=== PATIENT | female | born 1945 | race Hispanic/Latino ===

== ENCOUNTER 2018-10-08 06:22 | Day surgery (SDC) | payer OTHER ==
--- NOTE | 2018-10-07 09:42 | RAD REPORT ---
EXAM DESCRIPTION: Soni Dumont (2 Views)10/07/2018 8:31 am CLINICAL HISTORY: preop for hernia repair COMPARISON: 2010 FINDINGS: The lungs appear clear of acute infiltrate. The heart is normal size. Small to moderate h iatal hernia IMPRESSION: No acute abnormalities displayed
[2018-10-07 09:43] LABS: Absolute Lymphocytes (CBC) 1.7 K/uL (0.7-4.9); Absolute Monocytes 0.5 K/uL (0.1-1.3); Absolute Neutrophil 3.7 K/uL (1.8-8.0); Basophils % 0.5 % (0-1.3); Eosinophils % 4.8 % (0-4.4); Hematocrit 42.6 % (36.0-45.0); Lymphocytes % 27.2 % (15.3-44.8); MPV 10.9 fL (7.6-11.3); Monocytes % 8.6 % (3.3-12.3); RBC Red Blood Cell Count 4.72 M/uL (3.86-4.86)
[2018-10-07 09:57] LABS: Potassium 3.8 mmol/L (3.5-5.1)
--- NOTE | 2018-10-07 10:21 | EKG ---
Test Date: 2018-10-07 Test Time: 08:26:55 Client Relation Specialist: SIMON MEASUREMENT RESULTS: Intervals: Rate: 57 AZ: 190 QRSD: 82 QT: 456 QTc: 443 Mica: P: 17 AZ: 190 QRS: 21 T: 27 INTERPRETIVE STATEMENTS: Sinus bradycardia Nonspecific T wave abnormality Abnormal ECG Compared to ECG 02/12/2016 16:37:47 T-wave abnormality now present Sinus rhythm no longer present Myocardial infarct finding no longer present Electronically Signed On 10-07-18 10:21:14 HOME APPLIANCE TECH by Jesus Cristobal
[2018-10-07 10:37] LABS: Blood Morphology Comment NOT SEEN (NOT SEEN); Platelet Estimate ADEQ; Platelets, Giant FEW; Urine White Blood Cell Casts OK
[2018-10-08] MEDS ORDERED: CEFAZOLIN 1GM (PREMIX IV) 1 GM/50 ML BAG ONE (06:46)
[2018-10-08] MEDS ORDERED: Ringers Lactate 1,000 ML IV ONE (06:46)
[2018-10-08] MEDS ORDERED: LIDOCAINE 1% MPF 5 ML VIAL ONE (06:52)
[2018-10-08] MEDS ORDERED: FENTANYL CITR 100 MCG/2 ML ONE (07:33)
[2018-10-08] MEDS ORDERED: PROPOFOL 200 MG/20 ML VIAL IV ONE (07:33)
[2018-10-08] MEDS ORDERED: LIDOCAINE 2% MPF 5 ML VIAL ONE (07:34)
[2018-10-08] MEDS ORDERED: BUPIVACAINE 0.5% PF 10 ML VIAL ONE (07:34)
[2018-10-08] MEDS ORDERED: ONDANSETRON 4 MG/2 ML VIAL ONE (07:34)
[2018-10-08] MEDS ORDERED: ROCURONIUM 50 MG/5 ML VIAL IV ONE (07:34)
[2018-10-08] MEDS ORDERED: MIDAZOLAM HCL 2 MG/2 ML INJ ONE (07:34)
[2018-10-08] MEDS ORDERED: EPHEDRINE SULF 50 MG/10 ML SYR ONE (08:01)
[2018-10-08] MEDS ORDERED: NEOSTIGMINE 1 MG/ML -5 ML SYRINGE ONE (08:37)
[2018-10-08] MEDS ORDERED: GLYCOPYRROLATE 0.2 MG/ML SYR ONE (08:37)
[2018-10-08] MEDS: MORPHINE 4 MG/ML SYR ONE ×2 (09:00→09:05)
[2018-10-08] MEDS ORDERED: TRAMADOL 37.5mg/APAP 325mg PER TAB ONE (10:01)
--- NOTE | 2018-10-08 12:00 | OP ---
Date of Procedure: 10/08/2018 Surgeon: Fabián Norman MD Preopertive Diagnosis: Right inguinal hernia. Postopertive Diagnosis: Right inguinal hernia. Procedure: Repair of right inguinal hernia. Estimated Blood Loss: Minimal. Specimen: Relevant. Findings: Direct right inguinal hernia lateral to the internal ring. Anesthesia: General. Complications: None. Disposition: The patient tolerated the procedure in stable condition and taken to Recovery in good g eneral condition. Procedure In Detail: The patient was brought to the OR, placed in supine position. General anesthes ia was begun. The patient was prepped and draped in the usual sterile fashion. Marcaine 0.5% was in filtrated in a field block fashion and then a 15-blade was used to make a 4 cm oblique incision in th e right groin between the pubic tubercle and the anterior iliac superior spine. Subcutaneous tissue divided fascia. Martha fascia identified and divided. Aponeurosis was identified and mobilized infe riorly to expose the shelving edge, then opened through the external ring. Ilioinguinal nerve identi fied and retracted out of the field of dissection. The round ligament mobilized and excised and sent to Pathology. 2-0 chromic used to tie both ends. There was no hernia in the internal ring. Latera l to the internal ring, there was approximately a 2.5 cm defect with preperitoneal fat protruding thr ough it which was reduced back into the peritoneal cavity, and then the defect was closed by approxim ating the shelving edge to the conjoint tendon, then subsequently a Marlex mesh plug was placed in th e internal ring, secured with VersaTack stapler and then Onlay mesh was used to cover the area where the hernia was as well as the inguinal floor, and secured medially to the pubic tubercle, superiorly to the conjoint tendon, laterally beyond the hernia defect, inferiorly to the shelving edge, then kev oinguinal nerve placed back in anatomical location and in 2-0 Prolene was used to close the aponeuros is and 3-0 chromic used to close the Martha fascia. Wentworth used to close the skin. Sterile dressin g was applied. The patient was awakened and taken to Recovery in good general condition. /MODL Voice ID: [id number] Report ID: [id number]
--- NOTE | 2018-10-08 12:00 | DS ---
Date of Discharge: 10/08/2018 Discharge Note: The patient will go to day surgery and home when stable. Disposition: Home. Condition: Stable. Discharge Instructions: Resume home medications and diet. Activity as tolerated. No heavy lifting. Remove outer dressing in 2 days. Shower. Keep wound clean and dry. Follow up in my office in a nahomi montezk. Call for appointment. Ultracet 1 tablet p.o. q.4 p.r.n. pain. Ice pack as needed. RACHAEL/JENNIFER Voice ID: [id number] Report ID: [id number]
== END 2018-10-08 10:46 | disposition home or self-care (01) ==
LOC: OR 06:22
PROVIDERS: ATTEND Surgery
PROC: 0YU50JZ Supplement Right Inguinal Region with Synthetic Substitute, Open Approach (ICD-10-PCS; principal; 2018-10-08 07:30)
DX: K40.90 Unilateral inguinal hernia, without obstruction or gangrene, not specified as recurrent (principal); I10 Essential (primary) hypertension; G47.33 Obstructive sleep apnea (adult) (pediatric); K21.9 Gastro-esophageal reflux disease without esophagitis; Z88.6 Allergy status to analgesic agent
CPT/HCPCS: 36415; 49505; 71046; 80048; 85025; 88302; 93005; J0690; J2250; J2405; J2704; J2710; J3010

== ENCOUNTER 2024-01-05 13:49 | Observation (INO) | payer MEDICAID ==
--- OUTSIDE RECORDS SUMMARY | 2024-01-05 13:56 | XMS REPORT | Continuity of Care Document ---
Author Name Unknown Address [address] [facility] [address] [place] [address] [facility] Address [address] [facility]. [address] [place] [address] Care Team Providers Care Box Fabricator Name Role Phone ELIZABET EMELY TO Primary Care Physician Unavaila Emely Pinto Attending Clinician Unavailable Javier Van Attending Clinician Unavailable Bella Padilla Attending Clinician Unavailable SG GOVEA Attending Clinician Unavailable SUZY MENDOZA Attending Clinician Unavailable MACK HARTLEY Attending Clinician Unavailable NISHANT GUTIERREZ Attending Clinician Unavailable MIGUELINA SAMANO Attending Clinician Unavailab vernell GOMEZ_Zohra Attending Clinician Unavail able FALLON GARRIDO Attending Clinician Unava JUAN Steward Attending Clinician Unavailable BRIAN GERBER Attending Clinician Unavailabl e MD SARA Attending Clinician Unavailab DENNIS Javier Attending Clinician Unavailabl e VF1 Attending Clinician Unavailable 1, [facility] Attending Clinic terrie Unavailable KRISTOPHER MONTGOMERY Attending Clinician Unavailable AMIRA PONCE Attending Clinician Unavailable JAIDEN ALEXANDER Attending Clinician Unava ilable Doctor Unassigned, [place] Attending Clinician U иван Interiano MD, Kathleen Attending Clinician + [phone] LAB90 Attending Clinician Unavailable KATHLEEN INTERIANO Attending Clinician EMANUEL Maxwell Attending Clinician Unava ilable Catrett V, ACNPKumarSarika Attending Clinician SARIKA OHARA Attending Clinician Unavailable Denise Barnett MD Attending Clinician [phone] Referred, Self Attending Clinician Unavailable JEFFREY FAUSTIN Attending Clinician Venkat Gallardo MD, Jeffrey Lazaro Attending Clinician [phone] [facility], [facility] Main Attending Clinician UnavailDebbi Chandra Attending Clinician Unatwin ilable Attending Clinician [phone] Debbi Manzo Attending Clinician [phone] DENISE BARNETT Attending Clinician Unavailable Raju_P Attending Clinician Unavailable ISABELA FRANCIS Attending Clinician Unavail able AUBRIE LEIGH Attending Clinician UnavailLYNDON Brewer Attending Clinician Unavailab vernell _SWHAWPR_Varun Admitting Clinician Unavail able Referred, Self Admitting Clinician Unavailable JEFFREY FAUSTIN Admitting Clinician Unavailab Sami MORILLO, Jeffrey Lazaro Admitting Clinician [phone] Debbi Manzo Admitting Clinician Unava ilable RajArchana Admitting Clinician Unavailable LYNDON MILLS Admitting Clinician Unavailab matt Payers Payer Name Policy Type Policy Number Effective Date Expirati on Date Source [facility] HMO-POS 16 [id number] 2023 00:00:00 ARLYN MCELROY PLUS (MEDICARE REPLACEMENT HMO) [id number] [employer] (MEDICARE REPLACEMENT O) [id number] 2021 00:00:00 2022 00:00:00 Problems Condition Name Condition Details Condition Category Status Onset Date Resolution Date Last Treatment Date Treating Clinician Comments Source Primary insomnia Primary insomnia Disease Active 02-27 00:00: 00 Arlyn Mcgilla giselle Pinched thoracic nerve root Pinched thoracic nerve root Disease Active 02-27 00:00: 00 Arlyn Mcgilla giselle Redundant colon Redundant colon Disease Active 02-27 00:00: 00 Arlyn Sylvester Externa l Hyperlipid emia Hyperlipid emia Disease Active 02-24 00:00: 00 Arlyn Mcgilla giselle Primary hypertensi on - Controlled Primary hypertensi on - Controlled Disease Active 02-24 00:00: 00 Arlyn Mcgilla giselle Essential hypertensi on Essential hypertensi on Disease Recurre nce 03-01 00:00: 00 [facility] Gastroesop hageal reflux disease, esophagiti s presence not specified Gastroesop hageal reflux disease, esophagiti s presence not specified Disease Active 11-07 00:00: 00 [facility] Uncontroll ed hypertensi on Uncontroll ed hypertensi on Disease Active 11-07 00:00: 00 [facility] Bilateral foot pain Bilateral foot pain Disease Active 11-07 00:00: 00 [facility] Hyperlipid emia, unspecifie d hyperlipid emia type Hyperlipid emia, unspecifie d hyperlipid emia type Disease Active 11-07 00:00: 00 [facility] History of peptic ulcer History of peptic ulcer Disease Active 11-07 00:00: 00 [facility] Hiatal hernia Hiatal hernia Disease Active 11-07 00:00: 00 [facility] Allergies, Adverse Reactions, Alerts Allergy Name Allergy Type Status Severity Reaction(s) Onset Date Inactive Date Treating Clinician Comments Source Codeine Propensi ty to adverse reaction s Active Nausea and Vomiting 06-19 00:00: 00 Arlyn desai Fd&C Blue #2 Al Dye-Nap roxen Propensi ty to adverse reaction s Active Itching 02-24 00:00: 00 Arlyn desai Naproxen Sodium Propensi ty to adverse reaction s Active Other 01-07 00:00: 00 Elevated BP and causes SOB Arlyn Seybold - Externa l Codeine Propensi ty to adverse reaction s Active 01-07 00:00: 00 Arlyn Seybold - Externa l Tramadol Propensi ty to adverse reaction s Active 04-26 00:00: 00 Other reaction( s): BLISTERS/ RASH Arlyn Setamraold - Externa l codeine DA Active U RASH AND NAUSEA 04-26 00:00: 00 [facility] naproxen DA Active U PANIC 04-26 00:00: 00 [facility] tramadol DA Active U BLISTERS/ISABEL H 04-26 00:00: 00 [facility] Morphine Drug Intolera nce Active Other 03-01 00:00: 00 Patient is not allergic but just does not want morphine Arlyn Pulliam - Externa l MORPHINE DRUG INGREDI Active Low Other-Cmnt 03-01 00:00: 00 [facility] NAPROXEN SODIUM DRUG INGREDI Active SOB 12-31 00:00: 00 [facility] Naproxen Sodium Propensi ty to adverse reaction s Active Shortness of Breath 12-31 00:00: 00 [facility] CODEINE DRUG INGREDI Active N/V 10-29 00:00: 00 [facility] Codeine Propensi ty to adverse reaction s Active Nausea and/or Vomiting 10-29 00:00: 00 [facility] Aleve Allergy to substanc e Active Itching [facility] Codeine Allergy to substanc e Active Nausea, Vomiting [facility] Naproxen Allergy to substanc e Active Itching [facility] Social History Social Habit Start Date Stop Date Quantity Comments Source History SDOH Alcohol Frequency [facility] History SDOH Alcohol Std Drinks [facility] History SDOH Alcohol Binge [facility] Alcoholic beverage intake 2024-01-01 00:00:00 2024-01-01 00:00:00 Lifetime non-drinker (finding) Arlyn Pulliam - External Alcohol intake 2023-10-27 00:00:00 2023-10-27 00:00:00 Lifetime non-drinker (finding) Arlyn Pulliam - External Exposure to SARS-CoV-2 (event) 2023-01-17 00:00:00 2023-01-27 12:57:00 Not sure [facility] Tobacco use and exposure 2023-01-07 00:00:00 2023-01-07 00:00:00 Smokeless tobacco non-user Arlyn Pulliam - External History of Social function 2022-10-02 00:00:00 2022-10-02 00:00:00 [facility] Alcohol Comment 2016-10-29 00:00:00 2016-10-29 00:00:00 Occasionally [facility] Sex assigned at 1945 00:00:00 1945 00:00:00 Arlyn Pulliam - External Smoking Status Start Date Stop Date Source Never smoked tobacco Arlyn Pulliam - External Medications Ordered Medication Name Filled Medication Name Start Date Stop Date Current Medication? Ordering Clinician Indication Dosage Frequency Signature (SIG) Comments Components Source Cholecalcif ochoa (D3 High Potency) 25 MCG (1000 UT) oral Capsule 12-31 10:01: 19 Yes 1000U Take 1,000 units by mouth daily. Arlyn desai Magnesium Oxide (MAGNESIUM EXTRA STRENGTH OR) 12-31 10:01: 19 Yes 420mg Take 420 mg by mouth. Arlyn desai OMEGA-3 KRILL OIL OR 12-31 09:57: 47 Yes 600mg Take 600 mg by mouth. Arlyn desai Cholestyram ine 4 GM/DOSE oral Powder 12-31 09:56: 59 12-31 00:00 :00 No 4g Take 1 packet (4 g total) by mouth in the morning and 1 packet (4 g total) in the evening. Take with meals. Arlyn desai Azelastine HCl 0.1 % nasal Solution 12-31 09:56: 25 12-31 00:00 :00 No 1{spray } Use 1 spray in each nostril 2 times daily. Arlyn desai Candesartan Cilexetil-H CTZ 32-12.5 MG oral Tablet 12-31 00:00: 00 Yes [id number] 1{tbl} Take 1 tablet by mouth daily. Arlyn desai Carvedilol 6.25 MG oral Tablet 12-31 00:00: 00 Yes [id number] 6.25mg Take 1 tablet (6.25 mg total) by mouth in the morning and 1 tablet (6.25 mg total) in the evening. Take with meals. Arlyn desai Trazodone HCl 50 MG oral Tablet 12-31 00:00: 00 Yes [id number] 50mg Take 1 tablet (50 mg total) by mouth nightly. Arlyn desai Loratadine (CLARITIN) 10 MG oral tablet 12-29 00:00: 00 Yes 10mg Take 1 tablet (10 mg total) by mouth daily. Arlyn desai Candesartan Cilexetil-H CTZ 32-12.5 MG oral Tablet 12-29 00:00: 00 12-31 00:00 :00 No [id number] 1{tbl} Take 1 tablet by mouth daily. Arlyn desai Trazodone HCl 50 MG oral Tablet 12-29 00:00: 00 12-31 00:00 :00 No [id number] 50mg Take 1 tablet (50 mg total) by mouth nightly. Arlyn desai ESTRADIOL VAGINAL (ESTRACE VAGINAL) 0.1 MG/GM vaginal Cream 11-19 13:14: 12 11-19 00:00 :00 No .5g 0.5 g Arlyn desai Tamsulosin HCl 0.4 MG oral Capsule 11-19 13:14: 06 11-19 00:00 :00 No .4mg 1 capsule (0.4 mg total) daily. Arlyn desai Cholecalcif ochoa 1.25 MG (83835 UT) oral Capsule 11-19 13:13: 53 11-19 00:00 :00 No [id number] Take 1 capsule (50,000 units total) by mouth once a month. Arlyn desai Cholestyram ine 4 GM/DOSE oral Powder 11-18 13:05: 18 Yes 4g Take 1 packet (4 g total) by mouth in the morning and 1 packet (4 g total) in the evening. Take with meals. Arlyn desai methylPREDN ISolone (Medrol) 4 MG oral Tablet Therapy Pack 11-18 00:00: 00 12-31 00:00 :00 No [id number] 1{janelle} Take 1 janelle by mouth See Admin Instructio ns Use as directed.. Arlyn desai Cholestyram ine 4 GM/DOSE oral Powder 10-27 08:30: 08 Yes 4g Take 1 packet (4 g total) by mouth in the morning and 1 packet (4 g total) in the evening. Take with meals. Arlyn desai Cholecalcif ochoa 1.25 MG (08915 UT) oral Capsule 10-27 08:30: 08 Yes [id number] Take 1 capsule (50,000 units total) by mouth once a month. Arlyn desai ESTRADIOL VAGINAL (ESTRACE VAGINAL) 0.1 MG/GM vaginal Cream 10-27 08:30: 08 Yes .5g 0.5 g Arlyn desai Carvedilol 6.25 MG oral Tablet 10-20 00:00: 00 12-31 00:00 :00 No [id number] 6.25mg Take 1 tablet (6.25 mg total) by mouth in the morning and 1 tablet (6.25 mg total) in the evening. Take with meals. Arlyn desai Azelastine HCl 137 MCG/SPRAY nasal Solution 1-03 00:00: 00 11-19 00:00 :00 No [id number] 1{spray } Use 1 spray in each nostril 2 times daily. Arlyn desai Trazodone HCl 50 MG oral Tablet 2022-09 00:00: 00 Yes [id number] 50mg Take 1 tablet (50 mg total) by mouth nightly. Arlyn desai Tamsulosin HCl 0.4 MG oral Capsule 2022-09 08:57: 30 Yes .4mg 1 capsule (0.4 mg total) daily. Arlyn desai FLUTICASONE PROPIONATE, NASAL, (Flonase Allergy Relief) 50 MCG/ACT nasal Suspension 2022-09 00:00: 00 Yes [id number] 50ug Use 1 spray (50 mcg total) in each nostril daily. Arlyn desai Oxybutynin Chloride 10 MG oral TABLET SR 24 HR 2022-09 00:00: 00 11-19 00:00 :00 No [id number] 10mg Take 1 tablet (10 mg total) by mouth daily. Arlyn desai Cholestyram ine 4 GM/DOSE oral Powder 2022-09 14:16: 06 Yes 4g Take 1 packet (4 g total) by mouth in the morning and 1 packet (4 g total) in the evening. Take with meals. Arlyn desai Cholecalcif ochoa 1.25 MG (98742 UT) oral Capsule 2022-09 14:16: 06 Yes [id number] Take 1 capsule (50,000 units total) by mouth once a month. Arlyn desai ESTRADIOL VAGINAL (ESTRACE VAGINAL) 0.1 MG/GM vaginal Cream 2022-09 14:16: 06 Yes .5g 0.5 g Arlyn desai Tamsulosin HCl 0.4 MG oral Capsule 2022-09 14:16: 06 Yes .4mg 1 capsule (0.4 mg total) daily. Arlyn desai Triamcinolo ne Acetonide 0.1 % apply externally Cream 2022-09 14:16: 06 Yes APPLY THIN LAYER TO AFFECTED AREAS ON TRUNK TWICE A DAY FOR 2 WEEKS/TERRIE H Arlyn desai Cholestyram ine 4 GM/DOSE oral Powder 2022-09 13:02: 05 Yes 4g Take 1 packet (4 g total) by mouth in the morning and 1 packet (4 g total) in the evening. Take with meals. Arlyn desai Cholecalcif ochoa 1.25 MG (67657 UT) oral Capsule 2022-09 13:02: 05 Yes [id number] Take 1 capsule (50,000 units total) by mouth once a month. Arlyn desai ESTRADIOL VAGINAL (ESTRACE VAGINAL) 0.1 MG/GM vaginal Cream 2022-09 13:02: 05 Yes .5g 0.5 g Arlyn desai Tamsulosin HCl 0.4 MG oral Capsule 2022-09 13:02: 05 Yes .4mg 1 capsule (0.4 mg total) daily. Arlyn desai Triamcinolo ne Acetonide 0.1 % apply externally Cream 2022-09 13:02: 05 Yes APPLY THIN LAYER TO AFFECTED AREAS ON TRUNK TWICE A DAY FOR 2 WEEKS/TERRIE H Arlyn desai Mirabegron ER (Myrbetriq) 25 MG oral TABLET SR 24 HR 2022-09 10:38: 26 07-01 00:00 :00 No 25mg Take 1 tablet (25 mg total) by mouth daily. Arlyn desai Cholestyram ine 4 GM/DOSE oral Powder 2022-09 10:04: 27 Yes 4g Take 1 packet (4 g total) by mouth in the morning and 1 packet (4 g total) in the evening. Take with meals. Arlyn desai Cholecalcif ochoa 1.25 MG (24764 UT) oral Capsule 2022-09 10:04: 27 Yes [id number] Take 1 capsule (50,000 units total) by mouth once a month. Arlyn desai ESTRADIOL VAGINAL (ESTRACE VAGINAL) 0.1 MG/GM vaginal Cream 2022-09 10:04: 27 Yes .5g 0.5 g Arlyn desai Tamsulosin HCl 0.4 MG oral Capsule 2022-09 10:04: 27 Yes .4mg 1 capsule (0.4 mg total) daily. Arlyn desai Triamcinolo ne Acetonide 0.1 % apply externally Cream 2022-09 10:04: 27 Yes APPLY THIN LAYER TO AFFECTED AREAS ON TRUNK TWICE A DAY FOR 2 WEEKS/TERRIE H Arlyn desai Acetaminoph en-Codeine 300-30 MG oral Tablet 2022-09:: 07-01 00:00 :00 No Arlyn desai Ibuprofen (MOTRIN) 800 MG oral Tablet 2022-09:: 07-01 00:00 :00 No TAKE 1 TABLET BY MOUTH 3 TIMES A DAY FOR INFLAMMATI ON AND PAIN Arlyn desai Nitrofurant oin Monohyd Macro 100 MG oral Capsule 2022-09 07:: 07-01 00:00 :00 No TAKE 1 CAPSULE BY MOUTH EVERY 12 HOURS FOR 7 DAYS WITH FOOD Arlyn desai prednisoLON E Acetate 1 % ophthalmic Suspension 2022-09:: 07-01 00:00 :00 No INSTILL 1 DROP TO BOTH EYES EVERY DAY FOR 2 WEEKS Arlyn desai raNITIdine HCl 300 MG oral Tablet 2022-09 07:: 07-01 00:00 :00 No 300mg Take 1 tablet (300 mg total) by mouth daily. Arlyn desai Tramadol HCl (ULTRAM) 50 MG oral Tablet 2022-09:: 07-01 00:00 :00 No TAKE 1 TABLET BY MOUTH TWICE DAILY FOR 15 DAYS Arlyn desai Valacyclovi r HCl 500 MG oral Tablet 2022-09:: 07-01 00:00 :00 No 500mg Take 1 tablet (500 mg total) by mouth daily. Arlyn desai Oxybutynin Chloride 10 MG oral TABLET SR 24 HR 2022-09 00:00: 00 Yes [id number] 10mg Take 1 tablet (10 mg total) by mouth daily. Arlyn desai Cholestyram ine 4 GM/DOSE oral Powder 06-19 09:19: 18 Yes 4g Take 1 packet (4 g total) by mouth in the morning and 1 packet (4 g total) in the evening. Take with meals. Arlyn desai Mirabegron ER (Myrbetriq) 25 MG oral TABLET SR 24 HR 06-19 09:19: 18 Yes 25mg Take 1 tablet (25 mg total) by mouth daily. Arlyn desai Cholecalcif ochoa 1.25 MG (54275 UT) oral Capsule 06-19 09:19: 18 Yes [id number] Take 1 capsule (50,000 units total) by mouth once a month. Arlyn desai ESTRADIOL VAGINAL (ESTRACE VAGINAL) 0.1 MG/GM vaginal Cream 06-19 09:19: 18 Yes .5g 0.5 g Arlyn desai Tamsulosin HCl 0.4 MG oral Capsule 06-19 09:19: 18 Yes .4mg 1 capsule (0.4 mg total) daily. Arlyn desai Cephalexin 250 MG oral Capsule 06-02 00:00: 00 12-31 00:00 :00 No Arlyn desai Propranolol HCl 10 MG oral Tablet 05-08 00:00: 00 Yes [id number] 10mg [id number] 3D TAKE 1 TABLET (10 MG TOTAL) BY MOUTH 3 TIMES DAILY NEEDED (ANXIETY) Arlyn desai Gabapentin 300 MG oral Capsule 04-16 00:00: 00 07-01 00:00 :00 No 1 CAPSULE IN THE AM AND 2 CAPSULE AT PM Arlyn desai Loratadine (CLARITIN) 10 MG oral tablet 04-07 00:00: 00 11-19 00:00 :00 No 10mg Take 1 tablet (10 mg total) by mouth daily. Arlyn desai Loratadine 10 MG oral Capsule 03-27 09:07: 56 03-27 00:00 :00 No 10mg Take 1 capsule (10 mg total) by mouth daily Arlyn desai Cholestyram ine 4 GM/DOSE oral Powder 03-27 08:51: 37 Yes 4g Take 1 packet (4 g total) by mouth in the morning and 1 packet (4 g total) in the evening. Take with meals. Arlyn desai Mirabegron ER (Myrbetriq) 25 MG oral TABLET SR 24 HR 03-27 08:51: 37 Yes 25mg Take 1 tablet (25 mg total) by mouth daily Arlyn desai Cholecalcif ochoa 1.25 MG (19154 UT) oral Capsule 03-27 08:51: 37 Yes [id number] Take 1 capsule (50,000 units total) by mouth once a month Arlyn desai ESTRADIOL VAGINAL (ESTRACE VAGINAL) 0.1 MG/GM vaginal Cream 03-27 08:51: 37 Yes .5g 0.5 g Arlyn desai Tamsulosin HCl 0.4 MG oral Capsule 03-27 08:51: 37 Yes .4mg 1 capsule (0.4 mg total) daily Arlyn desai Propranolol HCl 10 MG oral Tablet 03-27 00:00: 00 Yes [id number] 10mg Q.[id number] 3D Take 1 tablet (10 mg total) by mouth 3 times daily as needed (Anxiety) Arlyn desai Loratadine 10 MG oral Capsule 03-27 00:00: 00 11-19 00:00 :00 No [id number] 10mg Take 1 capsule (10 mg total) by mouth daily Arlyn desai Trazodone HCl 50 MG oral Tablet 03-21 00:00: 00 Yes [id number] TAKE 1 TABLET BY MOUTH EVERY DAY AT NIGHT Arlyn desai Gabapentin 600 MG oral Tablet 03-11 00:00: 00 Yes 600mg Take 1 tablet (600 mg total) by mouth 2 times daily. Arlyn desai Rosuvastati n Calcium 5 MG oral Tablet 02-24 15:46: 02-24 00:00 :00 No 5mg Take 1 tablet (5 mg total) by mouth daily Arlyn desai Amlodipine Besylate 2.5 MG oral Tablet 02-24 15:46: 02-24 00:00 :00 No 2.5mg Take 1 tablet (2.5 mg total) by mouth daily Arlyn desai Candesartan Cilexetil-H CTZ 32-12.5 MG oral Tablet 02-24 15:46: 02-24 00:00 :00 No 1{tbl} Take 1 tablet by mouth daily Arlyn desai Carvedilol 25 MG oral Tablet 02-24 15:46: 02-24 00:00 :00 No 25mg Take 1 tablet (25 mg total) by mouth daily Arlyn desai FLUTICASONE PROPIONATE, NASAL, (Flonase Allergy Relief) 50 MCG/ACT nasal Suspension 02-24 15:46: 02-24 00:00 :00 No 50ug Use 1 spray (50 mcg total) in each nostril daily Arlyn desai Gabapentin 300 MG oral Capsule 02-24 15:46: 02-24 00:00 :00 No 300mg Take 1 capsule (300 mg total) by mouth 3 times daily Arlyn desai Cholestyram ine 4 GM/DOSE oral Powder 02-24 15:20: 04 Yes 4g Take 1 packet (4 g total) by mouth in the morning and 1 packet (4 g total) in the evening. Take with meals. Arlyn desai Mirabegron ER (Myrbetriq) 25 MG oral TABLET SR 24 HR 02-24 15:20: 04 Yes 25mg Take 1 tablet (25 mg total) by mouth daily Arlyn desai Loratadine 10 MG oral Capsule 02-24 15:20: 04 Yes 10mg Take 1 capsule (10 mg total) by mouth daily Arlyn desai Cholecalcif ochoa 1.25 MG (92750 UT) oral Capsule 02-24 15:20: 04 Yes [id number] Take 1 capsule (50,000 units total) by mouth once a month Arlyn desai ESTRADIOL VAGINAL (ESTRACE VAGINAL) 0.1 MG/GM vaginal Cream 02-24 15:20: 04 Yes .5g 0.5 g Arlyn desai Tamsulosin HCl 0.4 MG oral Capsule 02-24 15:20: 04 Yes .4mg 1 capsule (0.4 mg total) daily Arlyn desai Tramadol HCl (ULTRAM) 50 MG oral Tablet 02-24 15:19: 44 02-24 00:00 :00 No tramadol 50 mg tablet TAKE 1 TABLET BY MOUTH TWICE DAILY FOR 15 DAYS Arlyn desai Triamcinolo ne Acetonide 0.1 % apply externally Cream 02-24 15:19: 34 02-24 00:00 :00 No triamcinol one acetonide 0.1 % topical cream APPLY TO AFFECTED AREA TWICE DAILY FOR 5-7 DAYS Arlyn desai Valacyclovi r HCl 500 MG oral Tablet 02-24 15:19: 25 02-24 00:00 :00 No valacyclov ir 500 mg tablet TAKE 1 TABLET BY MOUTH DAILY Arlyn desai raNITIdine HCl 300 MG oral Tablet 02-24 15:19: 03 02-24 00:00 :00 No ranitidine 300 mg tablet TAKE 1 TABLET BY MOUTH EVERY DAY Arlyn desai Nitrofurant oin Monohyd Macro 100 MG oral Capsule 02-24 15:18: 26 02-24 00:00 :00 No nitrofuran toin monohydrat e/macrocry stals 100 mg capsule Arlyn desai Acetaminoph en-Codeine 300-30 MG oral Tablet 02-24 15:17: 17 02-24 00:00 :00 No acetaminop hen 300 mg-codeine 30 mg tablet Arlyn desai Carvedilol 25 MG oral Tablet 02-24 00:00: 00 Yes [id number] 25mg Take 1 tablet (25 mg total) by mouth daily Arlyn desai Amlodipine Besylate 2.5 MG oral Tablet 02-24 00:00: 00 Yes [id number] 2.5mg Take 1 tablet (2.5 mg total) by mouth daily Arlyn desai Rosuvastati n Calcium 5 MG oral Tablet 02-24 00:00: 00 Yes [id number] 5mg Take 1 tablet (5 mg total) by mouth daily Arlyn desai FLUTICASONE PROPIONATE, NASAL, (Flonase Allergy Relief) 50 MCG/ACT nasal Suspension 02-24 00:00: 00 Yes [id number] 50ug Use 1 spray (50 mcg total) in each nostril daily Arlyn desai Candesartan Cilexetil-H CTZ 32-12.5 MG oral Tablet 02-24 00:00: 00 Yes [id number] 1{tbl} Take 1 tablet by mouth daily Arlyn desai Gabapentin 300 MG oral Capsule 02-24 00:00: 00 03-27 00:00 :00 No [id number] 300mg Take 1 capsule (300 mg total) by mouth 3 times daily Arlyn desai Trazodone HCl 50 MG oral Tablet 02-24 00:00: 00 03-21 00:00 :00 No [id number] 50mg Take 1 tablet (50 mg total) by mouth nightly Arlyn desai Cholecalcif ochoa 1.25 MG (38800 UT) oral Capsule 01-07 14:30: 31 Yes [id number] Take 1 capsule (50,000 units total) by mouth once a month Arlyn desai Cholestyram ine 4 GM/DOSE oral Powder 01-07 14:25: 17 Yes 4g Take 1 packet (4 g total) by mouth in the morning and 1 packet (4 g total) in the evening. Take with meals. Arlyn desai Rosuvastati n Calcium 5 MG oral Tablet 01-07 14:25: 17 Yes 5mg Take 1 tablet (5 mg total) by mouth daily Arlyn desai Amlodipine Besylate 2.5 MG oral Tablet 01-07 14:25: 17 Yes 2.5mg Take 1 tablet (2.5 mg total) by mouth daily Arlyn desai Candesartan Cilexetil-H CTZ 32-12.5 MG oral Tablet 01-07 14:25: 17 Yes 1{tbl} Take 1 tablet by mouth daily Arlyn desai Carvedilol 25 MG oral Tablet 01-07 14:25: 17 Yes 25mg Take 1 tablet (25 mg total) by mouth daily Arlyn desai FLUTICASONE PROPIONATE, NASAL, (Flonase Allergy Relief) 50 MCG/ACT nasal Suspension 01-07 14:25: 17 Yes 50ug Use 1 spray (50 mcg total) in each nostril daily Arlyn desai Gabapentin 300 MG oral Capsule 01-07 14:25: 17 Yes 300mg Take 1 capsule (300 mg total) by mouth 3 times daily Arlyn desai Mirabegron ER (Myrbetriq) 25 MG oral TABLET SR 24 HR 01-07 14:25: 17 Yes 25mg Take 1 tablet (25 mg total) by mouth daily Arlyn desai Loratadine 10 MG oral Capsule 01-07 14:25: 17 Yes 10mg Take 1 capsule (10 mg total) by mouth daily Arlyn desai candesartan -hydrochlor othiazide 32-12.5 mg per tablet 12-11 10:30: 13 Yes 1{tbl} Take 1 tablet by mouth in the morning. [facility] carvedilol 25 mg tablet 12-11 09:54: 30 Yes [id number] 25mg Take 1 tablet by mouth in the morning. [facility] rosuvastati n 5 mg tablet 12-11 09:54: 30 Yes [id number] 5mg Take 1 tablet by mouth in the morning. [facility] cholestyram ine powder packet 12-11 09:54: 30 Yes [id number] 2g Take 2 g by mouth as needed for Other. [facility] loratadine 10 mg tablet 12-11 09:54: 30 Yes 10mg Take 1 tablet by mouth as needed. [facility] [id number] sul-NaCl-SISI l-asb-C (PLENVU) 140-9-5.2 gram PPkS 12-11 09:54: 30 Yes Plenvu 140 gram-9 gram-5.2 gram powder packs TAKE DIRECTED BY PHYSICIAN OFFICE [facility] gabapentin 300 mg capsule 12-11 09:54: 30 Yes gabapentin 300 mg capsule [facility] gabapentin 400 mg capsule 12-11 09:39: 05 12-11 00:00 :00 No 400mg Take 400 mg by mouth in the morning and 400 mg in the evening. [facility] Ibuprofen (MOTRIN) 800 MG oral Tablet 12-10 00:00: 00 02-24 00:00 :00 No ibuprofen 800 mg tablet TAKE 1 TABLET BY MOUTH 3 TIMES A DAY FOR INFLAMMATI ON AND PAIN Arlyn desai Premarin 0.625 MG/GM vaginal Cream 12-01 00:00: 00 06-19 00:00 :[address] 0.5 g vaginally daily Arlyn desai KETOROLAC TROMETHAMIN E, OPHTH, 0.5 % ophthalmic Solution 11-22 00:00: 00 02-24 00:00 :00 No 1[drp] Place 1 drop into both eyes 2 times daily Arlyn desai prednisoLON E Acetate 1 % ophthalmic Suspension 11-22 00:00: 00 02-24 00:00 :00 No INSTILL 1 DROP TO BOTH EYES EVERY DAY FOR 2 WEEKS Arlyn desai cephALEXin 250 mg capsule 11-21 00:00: 00 Yes TAKE 1 CAPSULE BY MOUTH AFTER EACH VISIT [facility] lactated ringers IV infusion 1,000 mL 10-02 18:15: 00 10-02 20:30 :03 No 1000mL at 50 mL/hr, 1,000 mL, IV Infusion, CONTINUOUS , Starting on Fri10/02/22 at 1215, Until Fri10/02/22 at 1430, Routine, PACU [facility] ondansetron (ZOFRAN (PF)) injection 4 mg 10-02 18:06: 49 10-02 20:30 :03 No 4mg 4 mg, Slow IV Push, PRN, 1 dose, Starting on Fri10/02/22 at 1206, Until Fri10/02/22 at 1430, Routine, Nausea and Vomiting (N/V), PACU [facility] neomycin-po lymyxin-dex amethasone (MAXITROL) 3.5 mg/g-10,000 unit/g-0.1 % ophthalmic ointment 10-02 17:48: 00 10-02 18:03 :17 No PRN, Starting on Fri10/02/22 at 1148, Until Fri10/02/22 at 1203, Routine, Intra-op [facility] dexamethaso ne (DECADRON PHOSPHATE) injection 10-02 17:46: 00 10-02 18:03 :17 No PRN, Starting on Fri10/02/22 at 1146, Until Fri10/02/22 at 1203, Routine, Intra-op [facility] sodium chloride (NS) injection 10-02 17:46: 00 10-02 18:03 :17 No PRN, Starting on Fri10/02/22 at 1146, Until Fri10/02/22 at 1203, Routine, Intra-op [facility] ceFAZolin (ANCEF) injection 10-02 17:46: 00 10-02 18:03 :17 No PRN, Starting on Fri10/02/22 at 1146, Until Fri10/02/22 at 1203, KAITLYN, Intra-op [facility] carbachoL (MIOSTAT) 0.01 % intraocular injection 10-02 17:45: 00 10-02 18:03 :17 No PRN, Starting on Fri10/02/22 at 1145, Until Fri10/02/22 at 1203, Routine, Intra-op [facility] chondroitin sulf-sod hyaluronate (DUOVISC VISCO ELASTIC) intraocular injection 10-02 17:37: 00 10-02 18:03 :17 No PRN, Starting on Fri10/02/22 at 1137, Until Fri10/02/22 at 1203, Routine, Intra-op [facility] EPINEPHrine 1:1,000 (1 mg/mL) (ADRENALIN) injection 10-02 17:37: 00 10-02 18:03 :17 No PRN, Starting on Fri10/02/22 at 1137, Until Fri10/02/22 at 1203, Routine, Intra-op [facility] balanced salt irrig soln comb1 (BSS PLUS) ophthalmic solution 500 mL bag 10-02 17:37: 00 10-02 18:03 :17 No PRN, Starting on Fri10/02/22 at 1137, Until Fri10/02/22 at 1203, Routine, Intra-op [facility] water for irrigation irrigation solution 10-02 17:33: 00 10-02 18:03 :17 No PRN, Starting on Fri10/02/22 at 1133, Until Fri10/02/22 at 1203, Routine, Intra-op [facility] Hyaluronida se, Human Recomb. (HYLENEX) injection 10-02 17:29: 00 10-02 18:03 :17 No PRN, Starting on Fri10/02/22 at 1129, Until Fri10/02/22 at 1203, Routine, Intra-op [facility] eye block syringe 11 mL 10-02 17:29: 00 10-02 18:03 :17 No PRN, Starting on Fri10/02/22 at 1129, Until Fri10/02/22 at 1203, Intra-op [facility] tropicamide (MYDRIACYL) 1 % ophthalmic drops 1 Drop 10-02 15:45: 00 10-02 15:56 :00 No 1[drp] 1 Drop, Left Eye, ONCE, 1 dose, On Fri10/02/22 at 0945, Routine, DSU Pre-op [facility] phenylephri ne (MICKIE-SYNEPH RINE) 2.5 % ophthalmic drops 1 Drop 10-02 15:45: 00 10-02 15:56 :00 No 1[drp] 1 Drop, Left Eye, ONCE, 1 dose, On Fri10/02/22 at 0945, Routine, DSU Pre-op [facility] cyclopentol ate (CYCLOGYL) 1 % ophthalmic drops 1 Drop 10-02 15:45: 00 10-02 15:56 :00 No 1[drp] 1 Drop, Left Eye, ONCE, 1 dose, On Fri10/02/22 at 0945, Routine, DSU Pre-op [facility] lactated ringers IV infusion 1,000 mL 10-02 15:45: 00 10-02 15:56 :00 No 1000mL at 42 mL/hr, 1,000 mL, IV Infusion, ONCE, 1 dose, On Fri10/02/22 at 0945, Routine, DSU Pre-op [facility] gabapentin 400 mg capsule 10-02 12:30: 00 Yes 400mg Take 400 mg by mouth in the morning and 400 mg in the evening. [facility] neomycin-po lymyxin-dex amethasone (MAXITROL) 3.5 mg/g-10,000 unit/g-0.1 % ophthalmic ointment 2021-09 16:23: 00 09-18 17:07 :44 No PRN, Starting on Fri09/18/22 at 1023, Until Fri09/18/22 at 1107, Routine, Intra-op [facility] dexamethaso ne (DECADRON PHOSPHATE) injection 2021-09 16:23: 00 09-18 17:07 :44 No PRN, Starting on Fri09/18/22 at 1023, Until Fri09/18/22 at 1107, Routine, Intra-op [facility] ceFAZolin (ANCEF) injection 2021-09 16:22: 00 09-18 17:07 :44 No PRN, Starting on Fri09/18/22 at 1022, Until Fri09/18/22 at 1107, KAITLYN, Intra-op [facility] carbachoL (MIOSTAT) 0.01 % intraocular injection 2021-09 16:22: 00 09-18 17:07 :44 No PRN, Starting on Fri09/18/22 at 1022, Until Fri09/18/22 at 1107, Routine, Intra-op [facility] chondroitin sulf-sod hyaluronate (DUOVISC VISCO ELASTIC) intraocular injection 2021-09 16:13: 00 09-18 17:07 :44 No PRN, Starting on Fri09/18/22 at 1013, Until Fri09/18/22 at 1107, Routine, Intra-op [facility] water for irrigation irrigation solution 2021-09 16:12: 00 09-18 17:07 :44 No PRN, Starting on Fri09/18/22 at 1012, Until Fri09/18/22 at 1107, Routine, Intra-op [facility] sodium chloride (NS) injection 2021-09 16:12: 00 09-18 17:07 :44 No PRN, Starting on Fri09/18/22 at 1012, Until Fri09/18/22 at 1107, Routine, Intra-op [facility] Hyaluronida se, Human Recomb. (HYLENEX) injection 2021-09 16:11: 00 09-18 17:07 :44 No PRN, Starting on Fri09/18/22 at 1011, Until Fri09/18/22 at 1107, Routine, Intra-op [facility] eye block syringe 11 mL 2021-09 16:10: 00 09-18 17:07 :44 No PRN, Starting on Fri09/18/22 at 1010, Until Fri09/18/22 at 1107, Intra-op [facility] EPINEPHrine 1:1,000 (1 mg/mL) (ADRENALIN) injection 2021-09 16:10: 00 09-18 17:07 :44 No PRN, Starting on Fri09/18/22 at 1010, Until Fri09/18/22 at 1107, Routine, Intra-op [facility] balanced salt irrig soln comb1 (BSS PLUS) ophthalmic solution 500 mL bag 2021-09 16:09: 00 09-18 17:07 :44 No PRN, Starting on Fri09/18/22 at 1009, Until Fri09/18/22 at 1107, Routine, Intra-op [facility] lactated ringers IV infusion 1,000 mL 2021-09 15:15: 00 09-18 15:06 :00 No 1000mL at 42 mL/hr, 1,000 mL, IV Infusion, ONCE, 1 dose, On Fri09/18/22 at 0915, Routine, DSU Pre-op [facility] cyclopent 1%-tropic 1%-phenyl 2.5%-ketor 0.5% (MYDRIATIC #5) ophthalmic solution syringe 0.5 mL 2021-09 15:15: 00 09-18 15:06 :00 No .5mL 0.5 mL, Right Eye, ONCE, 1 dose, On Fri09/18/22 at 0915, Routine, DSU Pre-op [facility] rosuvastati n 5 mg tablet 01-18 13:05: 00 Yes [id number] 5mg Take 5 mg by mouth daily. [facility] candesartan -hydrochlor othiazide 32-12.5 mg per tablet 05-03 13:45: 06 Yes 1{tbl} Take 1 tablet by mouth daily. [facility] carvedilol 25 mg tablet 03-18 13:49: 39 Yes [id number] 25mg Take 25 mg by mouth 2 (two) times daily with meals. [facility] acetaminoph en 160 mg/5 mL elixir 03-02 00:00: 00 Yes [id number] 320mg Take 10 mL by mouth every 6 (six) hours as needed for Fever. [facility] Boostrix Tdap 2.5 Lf unit-8 mcg-5 Lf/0.5 mL intramuscul ar syringe TO BE ADMINISTERE D BY PHARMACIST FOR IMMUNIZATIO N Boostrix Tdap 2.5 Lf unit-8 mcg-5 Lf/0.5 mL intramuscul ar syringe TO BE ADMINISTERE D BY PHARMACIST FOR IMMUNIZATIO N No Boostrix Tdap 2.5 Lf unit-8 mcg-5 Lf/0.5 mL intramuscu lar syringe TO BE ADMINISTER ED BY PHARMACIST FOR IMMUNIZATI ON [facility] Estrace 0.01% (0.1 mg/gram) vaginal cream Insert 0.5 g every 72 hours by vaginal route at bedtime for 90 days. Estrace 0.01% (0.1 mg/gram) vaginal cream Insert 0.5 g every 72 hours by vaginal route at bedtime for 90 days. No .5g Estrace 0.01% (0.1 mg/gram) vaginal cream Insert 0.5 g every 72 hours by vaginal route at bedtime for 90 days. [facility] Fluzone High-Dose (PF) 180 mcg/0.5 mL intramuscul ar syringe TO BE ADMINISTERE D BY PHARMACIST FOR IMMUNIZATIO N Fluzone High-Dose (PF) 180 mcg/0.5 mL intramuscul ar syringe TO BE ADMINISTERE D BY PHARMACIST FOR IMMUNIZATIO N No Fluzone High-Dose (PF) 180 mcg/0.5 mL intramuscu lar syringe TO BE ADMINISTER ED BY PHARMACIST FOR IMMUNIZATI ON [facility] Fluzone High-Dose Quad 2019- (PF) 240 mcg/0.7 mL IM syringe ADM 0.7ML IM UTD Fluzone High-Dose Quad (PF) 240 mcg/0.7 mL IM syringe ADM 0.7ML IM UTD No Fluzone High-Dose Quad 2020-21 (PF) 240 mcg/0.7 mL IM syringe ADM 0.7ML IM UTD [facility] meloxicam 7.5 mg tablet 1 TABLET BY MOUTH EVERY DAY WITH FOOD meloxicam 7.5 mg tablet 1 TABLET BY MOUTH EVERY DAY WITH FOOD No meloxicam 7.5 mg tablet 1 TABLET BY MOUTH EVERY DAY WITH FOOD [facility] mupirocin 2 % topical ointment APPLY TOPICALLY TO THE AFFECTED AREA TWICE DAILY FOR 7 DAYS mupirocin 2 % topical ointment APPLY TOPICALLY TO THE AFFECTED AREA TWICE DAILY FOR 7 DAYS No mupirocin 2 % topical ointment APPLY TOPICALLY TO THE AFFECTED AREA TWICE DAILY FOR 7 DAYS [facility] Myrbetriq 50 mg tablet,exte nded release Take 1 tablet every day by oral route as directed for 30 days. Myrbetriq 50 mg tablet,exte nded release Take 1 tablet every day by oral route as directed for 30 days. No 1 Q1D Myrbetriq 50 mg tablet,ext ended release Take 1 tablet every day by oral route as directed for 30 days. [facility] ondansetron HCl 4 mg tablet TAKE 1 TABLET BY MOUTH EVERY 8 HOURS ondansetron HCl 4 mg tablet TAKE 1 TABLET BY MOUTH EVERY 8 HOURS No ondansetro n HCl 4 mg tablet TAKE 1 TABLET BY MOUTH EVERY 8 HOURS [facility] Pneumovax-2 3 25 mcg/0.5 mL injection syringe TO BE ADMINISTERE D BY PHARMACIST FOR IMMUNIZATIO N Pneumovax-2 3 25 mcg/0.5 mL injection syringe TO BE ADMINISTERE D BY PHARMACIST FOR IMMUNIZATIO N No Pneumovax- 23 25 mcg/0.5 mL injection syringe TO BE ADMINISTER ED BY PHARMACIST FOR IMMUNIZATI ON [facility] Shingrix (PF) 50 mcg/0.5 mL intramuscul ar suspension, kit TO BE ADMINISTERE D BY PHARMACIST FOR IMMUNIZATIO N Shingrix (PF) 50 mcg/0.5 mL intramuscul ar suspension, kit TO BE ADMINISTERE D BY PHARMACIST FOR IMMUNIZATIO N No Shingrix (PF) 50 mcg/0.5 mL intramuscu lar suspension , kit TO BE ADMINISTER ED BY PHARMACIST FOR IMMUNIZATI ON [facility] Suprep Bowel Prep Kit 17.5 gram-3.13 gram-1.6 gram oral solution Suprep Bowel Prep Kit 17.5 gram-3.13 gram-1.6 gram oral solution No Suprep Bowel Prep Kit 17.5 gram-3.13 gram-1.6 gram oral solution [facility] UltraFlora Biome Pro - 90 Capsules 1 capsule per day Take 1 capsule PO every day as directed UltraFlora Biome Pro - 90 Capsules 1 capsule per day Take 1 capsule PO every day as directed No UltraFlora Biome Pro - 90 Capsules 1 capsule per day Take 1 capsule PO every day as directed [facility] Xhance 93 mcg/actuati on breath activated aerosol USE 2 SPRAYS IN EACH NOSTRIL EVERY DAY Xhance 93 mcg/actuati on breath activated aerosol USE 2 SPRAYS IN EACH NOSTRIL EVERY DAY No Xhance 93 mcg/actuat ion breath activated aerosol USE 2 SPRAYS IN EACH NOSTRIL EVERY DAY [facility] Boostrix Tdap 2.5 Lf unit-8 mcg-5 Lf/0.5 mL intramuscul ar syringe TO BE ADMINISTERE D BY PHARMACIST FOR IMMUNIZATIO N Boostrix Tdap 2.5 Lf unit-8 mcg-5 Lf/0.5 mL intramuscul ar syringe TO BE ADMINISTERE D BY PHARMACIST FOR IMMUNIZATIO N No Boostrix Tdap 2.5 Lf unit-8 mcg-5 Lf/0.5 mL intramuscu lar syringe TO BE ADMINISTER ED BY PHARMACIST FOR IMMUNIZATI ON [facility] Fluzone High-Dose (PF) 180 mcg/0.5 mL intramuscul ar syringe TO BE ADMINISTERE D BY PHARMACIST FOR IMMUNIZATIO N Fluzone High-Dose (PF) 180 mcg/0.5 mL intramuscul ar syringe TO BE ADMINISTERE D BY PHARMACIST FOR IMMUNIZATIO N No Fluzone High-Dose (PF) 180 mcg/0.5 mL intramuscu lar syringe TO BE ADMINISTER ED BY PHARMACIST FOR IMMUNIZATI ON [facility] Fluzone High-Dose Quad (PF) 240 mcg/0.7 mL IM syringe ADM 0.7ML IM UTD Fluzone High-Dose Quad (PF) 240 mcg/0.7 mL IM syringe ADM 0.7ML IM UTD No Fluzone High-Dose Quad (PF) 240 mcg/0.7 mL IM syringe ADM 0.7ML IM UTD [facility] meloxicam 7.5 mg tablet 1 TABLET BY MOUTH EVERY DAY WITH FOOD meloxicam 7.5 mg tablet 1 TABLET BY MOUTH EVERY DAY WITH FOOD No meloxicam 7.5 mg tablet 1 TABLET BY MOUTH EVERY DAY WITH FOOD [facility] ondansetron HCl 4 mg tablet TAKE 1 TABLET BY MOUTH EVERY 8 HOURS ondansetron HCl 4 mg tablet TAKE 1 TABLET BY MOUTH EVERY 8 HOURS No ondansetro n HCl 4 mg tablet TAKE 1 TABLET BY MOUTH EVERY 8 HOURS [facility] Pneumovax-2 3 25 mcg/0.5 mL injection syringe TO BE ADMINISTERE D BY PHARMACIST FOR IMMUNIZATIO N Pneumovax-2 3 25 mcg/0.5 mL injection syringe TO BE ADMINISTERE D BY PHARMACIST FOR IMMUNIZATIO N No Pneumovax- 23 25 mcg/0.5 mL injection syringe TO BE ADMINISTER ED BY PHARMACIST FOR IMMUNIZATI ON [facility] Shingrix (PF) 50 mcg/0.5 mL intramuscul ar suspension, kit TO BE ADMINISTERE D BY PHARMACIST FOR IMMUNIZATIO N Shingrix (PF) 50 mcg/0.5 mL intramuscul ar suspension, kit TO BE ADMINISTERE D BY PHARMACIST FOR IMMUNIZATIO N No Shingrix (PF) 50 mcg/0.5 mL intramuscu lar suspension , kit TO BE ADMINISTER ED BY PHARMACIST FOR IMMUNIZATI ON [facility] Suprep Bowel Prep Kit 17.5 gram-3.13 gram-1.6 gram oral solution Suprep Bowel Prep Kit 17.5 gram-3.13 gram-1.6 gram oral solution No Suprep Bowel Prep Kit 17.5 gram-3.13 gram-1.6 gram oral solution [facility] Xhance 93 mcg/actuati on breath activated aerosol USE 2 SPRAYS IN EACH NOSTRIL EVERY DAY Xhance 93 mcg/actuati on breath activated aerosol USE 2 SPRAYS IN EACH NOSTRIL EVERY DAY No Xhance 93 mcg/actuat ion breath activated aerosol USE 2 SPRAYS IN EACH NOSTRIL EVERY DAY [facility] Estrace 0.01% (0.1 mg/gram) vaginal cream Insert 0.5 g every 72 hours by vaginal route at bedtime for 90 days. Estrace 0.01% (0.1 mg/gram) vaginal cream Insert 0.5 g every 72 hours by vaginal route at bedtime for 90 days. No .5g Estrace 0.01% (0.1 mg/gram) vaginal cream Insert 0.5 g every 72 hours by vaginal route at bedtime for 90 days. [facility] mupirocin 2 % topical ointment APPLY TOPICALLY TO THE AFFECTED AREA TWICE DAILY FOR 7 DAYS mupirocin 2 % topical ointment APPLY TOPICALLY TO THE AFFECTED AREA TWICE DAILY FOR 7 DAYS No mupirocin 2 % topical ointment APPLY TOPICALLY TO THE AFFECTED AREA TWICE DAILY FOR 7 DAYS [facility] Myrbetriq 50 mg tablet,exte nded release Take 1 tablet every day by oral route as directed for 30 days. Myrbetriq 50 mg tablet,exte nded release Take 1 tablet every day by oral route as directed for 30 days. No 1 Q1D Myrbetriq 50 mg tablet,ext ended release Take 1 tablet every day by oral route as directed for 30 days. [facility] UltraFlora Biome Pro - 90 Capsules 1 capsule per day Take 1 capsule PO every day as directed UltraFlora Biome Pro - 90 Capsules 1 capsule per day Take 1 capsule PO every day as directed No UltraFlora Biome Pro - 90 Capsules 1 capsule per day Take 1 capsule PO every day as directed [facility] Boostrix Tdap 2.5 Lf unit-8 mcg-5 Lf/0.5 mL intramuscul ar syringe TO BE ADMINISTERE D BY PHARMACIST FOR IMMUNIZATIO N Boostrix Tdap 2.5 Lf unit-8 mcg-5 Lf/0.5 mL intramuscul ar syringe TO BE ADMINISTERE D BY PHARMACIST FOR IMMUNIZATIO N No Boostrix Tdap 2.5 Lf unit-8 mcg-5 Lf/0.5 mL intramuscu lar syringe TO BE ADMINISTER ED BY PHARMACIST FOR IMMUNIZATI ON [facility] Estrace 0.01% (0.1 mg/gram) vaginal cream Insert 0.5 g every 72 hours by vaginal route at bedtime for 90 days. Estrace 0.01% (0.1 mg/gram) vaginal cream Insert 0.5 g every 72 hours by vaginal route at bedtime for 90 days. No .5g Estrace 0.01% (0.1 mg/gram) vaginal cream Insert 0.5 g every 72 hours by vaginal route at bedtime for 90 days. [facility] Fluzone High-Dose 2019- (PF) 180 mcg/0.5 mL intramuscul ar syringe TO BE ADMINISTERE D BY PHARMACIST FOR IMMUNIZATIO N Fluzone High-Dose (PF) 180 mcg/0.5 mL intramuscul ar syringe TO BE ADMINISTERE D BY PHARMACIST FOR IMMUNIZATIO N No Fluzone High-Dose (PF) 180 mcg/0.5 mL intramuscu lar syringe TO BE ADMINISTER ED BY PHARMACIST FOR IMMUNIZATI ON [facility] Fluzone High-Dose Quad (PF) 240 mcg/0.7 mL IM syringe ADM 0.7ML IM UTD Fluzone High-Dose Quad (PF) 240 mcg/0.7 mL IM syringe ADM 0.7ML IM UTD No Fluzone High-Dose Quad (PF) 240 mcg/0.7 mL IM syringe ADM 0.7ML IM UTD [facility] meloxicam 7.5 mg tablet 1 TABLET BY MOUTH EVERY DAY WITH FOOD meloxicam 7.5 mg tablet 1 TABLET BY MOUTH EVERY DAY WITH FOOD No meloxicam 7.5 mg tablet 1 TABLET BY MOUTH EVERY DAY WITH FOOD [facility] mupirocin 2 % topical ointment APPLY TOPICALLY TO THE AFFECTED AREA TWICE DAILY FOR 7 DAYS mupirocin 2 % topical ointment APPLY TOPICALLY TO THE AFFECTED AREA TWICE DAILY FOR 7 DAYS No mupirocin 2 % topical ointment APPLY TOPICALLY TO THE AFFECTED AREA TWICE DAILY FOR 7 DAYS [facility] Myrbetriq 50 mg tablet,exte nded release Take 1 tablet every day by oral route as directed for 30 days. Myrbetriq 50 mg tablet,exte nded release Take 1 tablet every day by oral route as directed for 30 days. No 1 Q1D Myrbetriq 50 mg tablet,ext ended release Take 1 tablet every day by oral route as directed for 30 days. [facility] ondansetron HCl 4 mg tablet TAKE 1 TABLET BY MOUTH EVERY 8 HOURS ondansetron HCl 4 mg tablet TAKE 1 TABLET BY MOUTH EVERY 8 HOURS No ondansetro n HCl 4 mg tablet TAKE 1 TABLET BY MOUTH EVERY 8 HOURS [facility] Pneumovax-2 3 25 mcg/0.5 mL injection syringe TO BE ADMINISTERE D BY PHARMACIST FOR IMMUNIZATIO N Pneumovax-2 3 25 mcg/0.5 mL injection syringe TO BE ADMINISTERE D BY PHARMACIST FOR IMMUNIZATIO N No Pneumovax- 23 25 mcg/0.5 mL injection syringe TO BE ADMINISTER ED BY PHARMACIST FOR IMMUNIZATI ON [facility] Shingrix (PF) 50 mcg/0.5 mL intramuscul ar suspension, kit TO BE ADMINISTERE D BY PHARMACIST FOR IMMUNIZATIO N Shingrix (PF) 50 mcg/0.5 mL intramuscul ar suspension, kit TO BE ADMINISTERE D BY PHARMACIST FOR IMMUNIZATIO N No Shingrix (PF) 50 mcg/0.5 mL intramuscu lar suspension , kit TO BE ADMINISTER ED BY PHARMACIST FOR IMMUNIZATI ON [facility] Suprep Bowel Prep Kit 17.5 gram-3.13 gram-1.6 gram oral solution Suprep Bowel Prep Kit 17.5 gram-3.13 gram-1.6 gram oral solution No Suprep Bowel Prep Kit 17.5 gram-3.13 gram-1.6 gram oral solution [facility] UltraFlora Biome Pro - 90 Capsules 1 capsule per day Take 1 capsule PO every day as directed UltraFlora Biome Pro - 90 Capsules 1 capsule per day Take 1 capsule PO every day as directed No UltraFlora Biome Pro - 90 Capsules 1 capsule per day Take 1 capsule PO every day as directed [facility] Xhance 93 mcg/actuati on breath activated aerosol USE 2 SPRAYS IN EACH NOSTRIL EVERY DAY Xhance 93 mcg/actuati on breath activated aerosol USE 2 SPRAYS IN EACH NOSTRIL EVERY DAY No Xhance 93 mcg/actuat ion breath activated aerosol USE 2 SPRAYS IN EACH NOSTRIL EVERY DAY [facility] Boostrix Tdap 2.5 Lf unit-8 mcg-5 Lf/0.5 mL intramuscul ar syringe TO BE ADMINISTERE D BY PHARMACIST FOR IMMUNIZATIO N Boostrix Tdap 2.5 Lf unit-8 mcg-5 Lf/0.5 mL intramuscul ar syringe TO BE ADMINISTERE D BY PHARMACIST FOR IMMUNIZATIO N No Boostrix Tdap 2.5 Lf unit-8 mcg-5 Lf/0.5 mL intramuscu lar syringe TO BE ADMINISTER ED BY PHARMACIST FOR IMMUNIZATI ON [facility] Estrace 0.01% (0.1 mg/gram) vaginal cream Insert 0.5 g every 72 hours by vaginal route at bedtime for 90 days. Estrace 0.01% (0.1 mg/gram) vaginal cream Insert 0.5 g every 72 hours by vaginal route at bedtime for 90 days. No .5g Estrace 0.01% (0.1 mg/gram) vaginal cream Insert 0.5 g every 72 hours by vaginal route at bedtime for 90 days. [facility] Fluzone High-Dose 2018- (PF) 180 mcg/0.5 mL intramuscul ar syringe TO BE ADMINISTERE D BY PHARMACIST FOR IMMUNIZATIO N Fluzone High-Dose 2018- (PF) 180 mcg/0.5 mL intramuscul ar syringe TO BE ADMINISTERE D BY PHARMACIST FOR IMMUNIZATIO N No Fluzone High-Dose (PF) 180 mcg/0.5 mL intramuscu lar syringe TO BE ADMINISTER ED BY PHARMACIST FOR IMMUNIZATI ON [facility] Fluzone High-Dose Quad 2019- (PF) 240 mcg/0.7 mL IM syringe ADM 0.7ML IM UTD Fluzone High-Dose Quad 2019-21 (PF) 240 mcg/0.7 mL IM syringe ADM 0.7ML IM UTD No Fluzone High-Dose Quad 2019-21 (PF) 240 mcg/0.7 mL IM syringe ADM 0.7ML IM UTD [facility] meloxicam 7.5 mg tablet 1 TABLET BY MOUTH EVERY DAY WITH FOOD meloxicam 7.5 mg tablet 1 TABLET BY MOUTH EVERY DAY WITH FOOD No meloxicam 7.5 mg tablet 1 TABLET BY MOUTH EVERY DAY WITH FOOD [facility] mupirocin 2 % topical ointment APPLY TOPICALLY TO THE AFFECTED AREA TWICE DAILY FOR 7 DAYS mupirocin 2 % topical ointment APPLY TOPICALLY TO THE AFFECTED AREA TWICE DAILY FOR 7 DAYS No mupirocin 2 % topical ointment APPLY TOPICALLY TO THE AFFECTED AREA TWICE DAILY FOR 7 DAYS [facility] Myrbetriq 50 mg tablet,exte nded release Take 1 tablet every day by oral route as directed for 30 days. Myrbetriq 50 mg tablet,exte nded release Take 1 tablet every day by oral route as directed for 30 days. No 1 Q1D Myrbetriq 50 mg tablet,ext ended release Take 1 tablet every day by oral route as directed for 30 days. [facility] ondansetron HCl 4 mg tablet TAKE 1 TABLET BY MOUTH EVERY 8 HOURS ondansetron HCl 4 mg tablet TAKE 1 TABLET BY MOUTH EVERY 8 HOURS No ondansetro n HCl 4 mg tablet TAKE 1 TABLET BY MOUTH EVERY 8 HOURS [facility] Pneumovax-2 3 25 mcg/0.5 mL injection syringe TO BE ADMINISTERE D BY PHARMACIST FOR IMMUNIZATIO N Pneumovax-2 3 25 mcg/0.5 mL injection syringe TO BE ADMINISTERE D BY PHARMACIST FOR IMMUNIZATIO N No Pneumovax- 23 25 mcg/0.5 mL injection syringe TO BE ADMINISTER ED BY PHARMACIST FOR IMMUNIZATI ON [facility] Shingrix (PF) 50 mcg/0.5 mL intramuscul ar suspension, kit TO BE ADMINISTERE D BY PHARMACIST FOR IMMUNIZATIO N Shingrix (PF) 50 mcg/0.5 mL intramuscul ar suspension, kit TO BE ADMINISTERE D BY PHARMACIST FOR IMMUNIZATIO N No Shingrix (PF) 50 mcg/0.5 mL intramuscu lar suspension , kit TO BE ADMINISTER ED BY PHARMACIST FOR IMMUNIZATI ON [facility] Suprep Bowel Prep Kit 17.5 gram-3.13 gram-1.6 gram oral solution Suprep Bowel Prep Kit 17.5 gram-3.13 gram-1.6 gram oral solution No Suprep Bowel Prep Kit 17.5 gram-3.13 gram-1.6 gram oral solution [facility] UltraFlora Biome Pro - 90 Capsules 1 capsule per day Take 1 capsule PO every day as directed UltraFlora Biome Pro - 90 Capsules 1 capsule per day Take 1 capsule PO every day as directed No UltraFlora Biome Pro - 90 Capsules 1 capsule per day Take 1 capsule PO every day as directed [facility] Xhance 93 mcg/actuati on breath activated aerosol USE 2 SPRAYS IN EACH NOSTRIL EVERY DAY Xhance 93 mcg/actuati on breath activated aerosol USE 2 SPRAYS IN EACH NOSTRIL EVERY DAY No Xhance 93 mcg/actuat ion breath activated aerosol USE 2 SPRAYS IN EACH NOSTRIL EVERY DAY [facility] Boostrix Tdap 2.5 Lf unit-8 mcg-5 Lf/0.5 mL intramuscul ar syringe TO BE ADMINISTERE D BY PHARMACIST FOR IMMUNIZATIO N Boostrix Tdap 2.5 Lf unit-8 mcg-5 Lf/0.5 mL intramuscul ar syringe TO BE ADMINISTERE D BY PHARMACIST FOR IMMUNIZATIO N No Boostrix Tdap 2.5 Lf unit-8 mcg-5 Lf/0.5 mL intramuscu lar syringe TO BE ADMINISTER ED BY PHARMACIST FOR IMMUNIZATI ON [facility] Estrace 0.01% (0.1 mg/gram) vaginal cream Insert 0.5 g every 72 hours by vaginal route at bedtime for 90 days. Estrace 0.01% (0.1 mg/gram) vaginal cream Insert 0.5 g every 72 hours by vaginal route at bedtime for 90 days. No .5g Estrace 0.01% (0.1 mg/gram) vaginal cream Insert 0.5 g every 72 hours by vaginal route at bedtime for 90 days. [facility] Fluzone High-Dose (PF) 180 mcg/0.5 mL intramuscul ar syringe TO BE ADMINISTERE D BY PHARMACIST FOR IMMUNIZATIO N Fluzone High-Dose (PF) 180 mcg/0.5 mL intramuscul ar syringe TO BE ADMINISTERE D BY PHARMACIST FOR IMMUNIZATIO N No Fluzone High-Dose (PF) 180 mcg/0.5 mL intramuscu lar syringe TO BE ADMINISTER ED BY PHARMACIST FOR IMMUNIZATI ON [facility] Fluzone High-Dose Quad 2019- (PF) 240 mcg/0.7 mL IM syringe ADM 0.7ML IM UTD Fluzone High-Dose Quad 2019- (PF) 240 mcg/0.7 mL IM syringe ADM 0.7ML IM UTD No Fluzone High-Dose Quad 2019- (PF) 240 mcg/0.7 mL IM syringe ADM 0.7ML IM UTD [facility] meloxicam 7.5 mg tablet 1 TABLET BY MOUTH EVERY DAY WITH FOOD meloxicam 7.5 mg tablet 1 TABLET BY MOUTH EVERY DAY WITH FOOD No meloxicam 7.5 mg tablet 1 TABLET BY MOUTH EVERY DAY WITH FOOD [facility] mupirocin 2 % topical ointment APPLY TOPICALLY TO THE AFFECTED AREA TWICE DAILY FOR 7 DAYS mupirocin 2 % topical ointment APPLY TOPICALLY TO THE AFFECTED AREA TWICE DAILY FOR 7 DAYS No mupirocin 2 % topical ointment APPLY TOPICALLY TO THE AFFECTED AREA TWICE DAILY FOR 7 DAYS [facility] Myrbetriq 50 mg tablet,exte nded release Take 1 tablet every day by oral route as directed for 30 days. Myrbetriq 50 mg tablet,exte nded release Take 1 tablet every day by oral route as directed for 30 days. No 1 Q1D Myrbetriq 50 mg tablet,ext ended release Take 1 tablet every day by oral route as directed for 30 days. [facility] ondansetron HCl 4 mg tablet TAKE 1 TABLET BY MOUTH EVERY 8 HOURS ondansetron HCl 4 mg tablet TAKE 1 TABLET BY MOUTH EVERY 8 HOURS No ondansetro n HCl 4 mg tablet TAKE 1 TABLET BY MOUTH EVERY 8 HOURS [facility] Pneumovax-2 3 25 mcg/0.5 mL injection syringe TO BE ADMINISTERE D BY PHARMACIST FOR IMMUNIZATIO N Pneumovax-2 3 25 mcg/0.5 mL injection syringe TO BE ADMINISTERE D BY PHARMACIST FOR IMMUNIZATIO N No Pneumovax- 23 25 mcg/0.5 mL injection syringe TO BE ADMINISTER ED BY PHARMACIST FOR IMMUNIZATI ON [facility] Shingrix (PF) 50 mcg/0.5 mL intramuscul ar suspension, kit TO BE ADMINISTERE D BY PHARMACIST FOR IMMUNIZATIO N Shingrix (PF) 50 mcg/0.5 mL intramuscul ar suspension, kit TO BE ADMINISTERE D BY PHARMACIST FOR IMMUNIZATIO N No Shingrix (PF) 50 mcg/0.5 mL intramuscu lar suspension , kit TO BE ADMINISTER ED BY PHARMACIST FOR IMMUNIZATI ON [facility] Suprep Bowel Prep Kit 17.5 gram-3.13 gram-1.6 gram oral solution Suprep Bowel Prep Kit 17.5 gram-3.13 gram-1.6 gram oral solution No Suprep Bowel Prep Kit 17.5 gram-3.13 gram-1.6 gram oral solution [facility] UltraFlora Biome Pro - 90 Capsules 1 capsule per day Take 1 capsule PO every day as directed UltraFlora Biome Pro - 90 Capsules 1 capsule per day Take 1 capsule PO every day as directed No UltraFlora Biome Pro - 90 Capsules 1 capsule per day Take 1 capsule PO every day as directed [facility] Xhance 93 mcg/actuati on breath activated aerosol USE 2 SPRAYS IN EACH NOSTRIL EVERY DAY Xhance 93 mcg/actuati on breath activated aerosol USE 2 SPRAYS IN EACH NOSTRIL EVERY DAY No Xhance 93 mcg/actuat ion breath activated aerosol USE 2 SPRAYS IN EACH NOSTRIL EVERY DAY [facility] Boostrix Tdap 2.5 Lf unit-8 mcg-5 Lf/0.5 mL intramuscul ar syringe TO BE ADMINISTERE D BY PHARMACIST FOR IMMUNIZATIO N Boostrix Tdap 2.5 Lf unit-8 mcg-5 Lf/0.5 mL intramuscul ar syringe TO BE ADMINISTERE D BY PHARMACIST FOR IMMUNIZATIO N No Boostrix Tdap 2.5 Lf unit-8 mcg-5 Lf/0.5 mL intramuscu lar syringe TO BE ADMINISTER ED BY PHARMACIST FOR IMMUNIZATI ON [facility] Estrace 0.01% (0.1 mg/gram) vaginal cream Insert 0.5 g every 72 hours by vaginal route at bedtime for 90 days. Estrace 0.01% (0.1 mg/gram) vaginal cream Insert 0.5 g every 72 hours by vaginal route at bedtime for 90 days. No .5g Estrace 0.01% (0.1 mg/gram) vaginal cream Insert 0.5 g every 72 hours by vaginal route at bedtime for 90 days. [facility] Fluzone High-Dose (PF) 180 mcg/0.5 mL intramuscul ar syringe TO BE ADMINISTERE D BY PHARMACIST FOR IMMUNIZATIO N Fluzone High-Dose 2018-20 (PF) 180 mcg/0.5 mL intramuscul ar syringe TO BE ADMINISTERE D BY PHARMACIST FOR IMMUNIZATIO N No Fluzone High-Dose (PF) 180 mcg/0.5 mL intramuscu lar syringe TO BE ADMINISTER ED BY PHARMACIST FOR IMMUNIZATI ON [facility] Fluzone High-Dose Quad 2019- (PF) 240 mcg/0.7 mL IM syringe ADM 0.7ML IM UTD Fluzone High-Dose Quad 2019- (PF) 240 mcg/0.7 mL IM syringe ADM 0.7ML IM UTD No Fluzone High-Dose Quad 2019- (PF) 240 mcg/0.7 mL IM syringe ADM 0.7ML IM UTD [facility] meloxicam 7.5 mg tablet 1 TABLET BY MOUTH EVERY DAY WITH FOOD meloxicam 7.5 mg tablet 1 TABLET BY MOUTH EVERY DAY WITH FOOD No meloxicam 7.5 mg tablet 1 TABLET BY MOUTH EVERY DAY WITH FOOD [facility] mupirocin 2 % topical ointment APPLY TOPICALLY TO THE AFFECTED AREA TWICE DAILY FOR 7 DAYS mupirocin 2 % topical ointment APPLY TOPICALLY TO THE AFFECTED AREA TWICE DAILY FOR 7 DAYS No mupirocin 2 % topical ointment APPLY TOPICALLY TO THE AFFECTED AREA TWICE DAILY FOR 7 DAYS [facility] Myrbetriq 50 mg tablet,exte nded release Take 1 tablet every day by oral route as directed for 30 days. Myrbetriq 50 mg tablet,exte nded release Take 1 tablet every day by oral route as directed for 30 days. No 1 Q1D Myrbetriq 50 mg tablet,ext ended release Take 1 tablet every day by oral route as directed for 30 days. [facility] ondansetron HCl 4 mg tablet TAKE 1 TABLET BY MOUTH EVERY 8 HOURS ondansetron HCl 4 mg tablet TAKE 1 TABLET BY MOUTH EVERY 8 HOURS No ondansetro n HCl 4 mg tablet TAKE 1 TABLET BY MOUTH EVERY 8 HOURS [facility] Pneumovax-2 3 25 mcg/0.5 mL injection syringe TO BE ADMINISTERE D BY PHARMACIST FOR IMMUNIZATIO N Pneumovax-2 3 25 mcg/0.5 mL injection syringe TO BE ADMINISTERE D BY PHARMACIST FOR IMMUNIZATIO N No Pneumovax- 23 25 mcg/0.5 mL injection syringe TO BE ADMINISTER ED BY PHARMACIST FOR IMMUNIZATI ON [facility] Shingrix (PF) 50 mcg/0.5 mL intramuscul ar suspension, kit TO BE ADMINISTERE D BY PHARMACIST FOR IMMUNIZATIO N Shingrix (PF) 50 mcg/0.5 mL intramuscul ar suspension, kit TO BE ADMINISTERE D BY PHARMACIST FOR IMMUNIZATIO N No Shingrix (PF) 50 mcg/0.5 mL intramuscu lar suspension , kit TO BE ADMINISTER ED BY PHARMACIST FOR IMMUNIZATI ON [facility] Suprep Bowel Prep Kit 17.5 gram-3.13 gram-1.6 gram oral solution Suprep Bowel Prep Kit 17.5 gram-3.13 gram-1.6 gram oral solution No Suprep Bowel Prep Kit 17.5 gram-3.13 gram-1.6 gram oral solution [facility] UltraFlora Biome Pro - 90 Capsules 1 capsule per day Take 1 capsule PO every day as directed UltraFlora Biome Pro - 90 Capsules 1 capsule per day Take 1 capsule PO every day as directed No UltraFlora Biome Pro - 90 Capsules 1 capsule per day Take 1 capsule PO every day as directed [facility] Xhance 93 mcg/actuati on breath activated aerosol USE 2 SPRAYS IN EACH NOSTRIL EVERY DAY Xhance 93 mcg/actuati on breath activated aerosol USE 2 SPRAYS IN EACH NOSTRIL EVERY DAY No Xhance 93 mcg/actuat ion breath activated aerosol USE 2 SPRAYS IN EACH NOSTRIL EVERY DAY [facility] Boostrix Tdap 2.5 Lf unit-8 mcg-5 Lf/0.5 mL intramuscul ar syringe TO BE ADMINISTERE D BY PHARMACIST FOR IMMUNIZATIO N Boostrix Tdap 2.5 Lf unit-8 mcg-5 Lf/0.5 mL intramuscul ar syringe TO BE ADMINISTERE D BY PHARMACIST FOR IMMUNIZATIO N No Boostrix Tdap 2.5 Lf unit-8 mcg-5 Lf/0.5 mL intramuscu lar syringe TO BE ADMINISTER ED BY PHARMACIST FOR IMMUNIZATI ON [facility] candesartan 32 mg-hydrochl orothiazide 12.5 mg tablet TAKE 1 TABLET BY MOUTH EVERY DAY candesartan 32 mg-hydrochl orothiazide 12.5 mg tablet TAKE 1 TABLET BY MOUTH EVERY DAY No candesarta n 32 mg-hydroch lorothiazi de 12.5 mg tablet TAKE 1 TABLET BY MOUTH EVERY DAY [facility] carvedilol 25 mg tablet TAKE 1 TABLET BY MOUTH EVERY DAY WITH FOOD FOR 30 DAYS carvedilol 25 mg tablet TAKE 1 TABLET BY MOUTH EVERY DAY WITH FOOD FOR 30 DAYS No carvedilol 25 mg tablet TAKE 1 TABLET BY MOUTH EVERY DAY WITH FOOD FOR 30 DAYS [facility] cholestyram ine (with sugar) 4 gram oral powder 4 G DAILY cholestyram ine (with sugar) 4 gram oral powder 4 G DAILY No cholestyra mine (with sugar) 4 gram oral powder 4 G DAILY [facility] cholestyram ine (with sugar) 4 gram powder for susp in a packet MIX 1 PACKET IN WATER OR JUICE AND DRINK BY MOUTH IMMEDIATELY TWICE A DAY cholestyram ine (with sugar) 4 gram powder for susp in a packet MIX 1 PACKET IN WATER OR JUICE AND DRINK BY MOUTH IMMEDIATELY TWICE A DAY No cholestyra mine (with sugar) 4 gram powder for susp in a packet MIX 1 PACKET IN WATER OR JUICE AND DRINK BY MOUTH IMMEDIATEL Y TWICE A DAY [facility] Estrace 0.01% (0.1 mg/gram) vaginal cream Insert 0.5 g every 72 hours by vaginal route at bedtime for 90 days. Estrace 0.01% (0.1 mg/gram) vaginal cream Insert 0.5 g every 72 hours by vaginal route at bedtime for 90 days. No .5g Estrace 0.01% (0.1 mg/gram) vaginal cream Insert 0.5 g every 72 hours by vaginal route at bedtime for 90 days. [facility] Fluzone High-Dose 2018- (PF) 180 mcg/0.5 mL intramuscul ar syringe TO BE ADMINISTERE D BY PHARMACIST FOR IMMUNIZATIO N Fluzone High-Dose 2018- (PF) 180 mcg/0.5 mL intramuscul ar syringe TO BE ADMINISTERE D BY PHARMACIST FOR IMMUNIZATIO N No Fluzone High-Dose (PF) 180 mcg/0.5 mL intramuscu lar syringe TO BE ADMINISTER ED BY PHARMACIST FOR IMMUNIZATI ON [facility] Fluzone High-Dose Quad 2019- (PF) 240 mcg/0.7 mL IM syringe ADM 0.7ML IM UTD Fluzone High-Dose Quad 2019- (PF) 240 mcg/0.7 mL IM syringe ADM 0.7ML IM UTD No Fluzone High-Dose Quad 2019- (PF) 240 mcg/0.7 mL IM syringe ADM 0.7ML IM UTD [facility] gabapentin 100 mg capsule TAKE 1 CAPSULE BY MOUTH TWICE A DAY gabapentin 100 mg capsule TAKE 1 CAPSULE BY MOUTH TWICE A DAY No gabapentin 100 mg capsule TAKE 1 CAPSULE BY MOUTH TWICE A DAY [facility] loratadine 10 mg tablet TAKE 1 TABLET BY MOUTH EVERY DAY loratadine 10 mg tablet TAKE 1 TABLET BY MOUTH EVERY DAY No loratadine 10 mg tablet TAKE 1 TABLET BY MOUTH EVERY DAY [facility] meloxicam 7.5 mg tablet 1 TABLET BY MOUTH EVERY DAY WITH FOOD meloxicam 7.5 mg tablet 1 TABLET BY MOUTH EVERY DAY WITH FOOD No meloxicam 7.5 mg tablet 1 TABLET BY MOUTH EVERY DAY WITH FOOD [facility] mupirocin 2 % topical ointment APPLY TOPICALLY TO THE AFFECTED AREA TWICE DAILY FOR 7 DAYS mupirocin 2 % topical ointment APPLY TOPICALLY TO THE AFFECTED AREA TWICE DAILY FOR 7 DAYS No mupirocin 2 % topical ointment APPLY TOPICALLY TO THE AFFECTED AREA TWICE DAILY FOR 7 DAYS [facility] Myrbetriq 50 mg tablet,exte nded release Take 1 tablet every day by oral route as directed for 30 days. Myrbetriq 50 mg tablet,exte nded release Take 1 tablet every day by oral route as directed for 30 days. No 1 Q1D Myrbetriq 50 mg tablet,ext ended release Take 1 tablet every day by oral route as directed for 30 days. [facility] ondansetron HCl 4 mg tablet TAKE 1 TABLET BY MOUTH EVERY 8 HOURS ondansetron HCl 4 mg tablet TAKE 1 TABLET BY MOUTH EVERY 8 HOURS No ondansetro n HCl 4 mg tablet TAKE 1 TABLET BY MOUTH EVERY 8 HOURS [facility] Plenvu 140 gram-9 gram-5.2 gram powder packs TAKE DIRECTED BY PHYSICIAN OFFICE Plenvu 140 gram-9 gram-5.2 gram powder packs TAKE DIRECTED BY PHYSICIAN OFFICE No Plenvu 140 gram-9 gram-5.2 gram powder packs TAKE DIRECTED BY PHYSICIAN OFFICE [facility] Pneumovax-2 3 25 mcg/0.5 mL injection syringe TO BE ADMINISTERE D BY PHARMACIST FOR IMMUNIZATIO N Pneumovax-2 3 25 mcg/0.5 mL injection syringe TO BE ADMINISTERE D BY PHARMACIST FOR IMMUNIZATIO N No Pneumovax- 23 25 mcg/0.5 mL injection syringe TO BE ADMINISTER ED BY PHARMACIST FOR IMMUNIZATI ON [facility] rosuvastati n 5 mg tablet TAKE 1 TABLET BY MOUTH EVERY OTHER DAY FOR 90 DAYS rosuvastati n 5 mg tablet TAKE 1 TABLET BY MOUTH EVERY OTHER DAY FOR 90 DAYS No rosuvastat in 5 mg tablet TAKE 1 TABLET BY MOUTH EVERY OTHER DAY FOR 90 DAYS [facility] Shingrix (PF) 50 mcg/0.5 mL intramuscul ar suspension, kit TO BE ADMINISTERE D BY PHARMACIST FOR IMMUNIZATIO N Shingrix (PF) 50 mcg/0.5 mL intramuscul ar suspension, kit TO BE ADMINISTERE D BY PHARMACIST FOR IMMUNIZATIO N No Shingrix (PF) 50 mcg/0.5 mL intramuscu lar suspension , kit TO BE ADMINISTER ED BY PHARMACIST FOR IMMUNIZATI ON [facility] Suprep Bowel Prep Kit 17.5 gram-3.13 gram-1.6 gram oral solution Suprep Bowel Prep Kit 17.5 gram-3.13 gram-1.6 gram oral solution No Suprep Bowel Prep Kit 17.5 gram-3.13 gram-1.6 gram oral solution [facility] UltraFlora Biome Pro - 90 Capsules 1 capsule per day Take 1 capsule PO every day as directed UltraFlora Biome Pro - 90 Capsules 1 capsule per day Take 1 capsule PO every day as directed No UltraFlora Biome Pro - 90 Capsules 1 capsule per day Take 1 capsule PO every day as directed [facility] Xhance 93 mcg/actuati on breath activated aerosol USE 2 SPRAYS IN EACH NOSTRIL EVERY DAY Xhance 93 mcg/actuati on breath activated aerosol USE 2 SPRAYS IN EACH NOSTRIL EVERY DAY No Xhance 93 mcg/actuat ion breath activated aerosol USE 2 SPRAYS IN EACH NOSTRIL EVERY DAY [facility] Boostrix Tdap 2.5 Lf unit-8 mcg-5 Lf/0.5 mL intramuscul ar syringe TO BE ADMINISTERE D BY PHARMACIST FOR IMMUNIZATIO N Boostrix Tdap 2.5 Lf unit-8 mcg-5 Lf/0.5 mL intramuscul ar syringe TO BE ADMINISTERE D BY PHARMACIST FOR IMMUNIZATIO N No Boostrix Tdap 2.5 Lf unit-8 mcg-5 Lf/0.5 mL intramuscu lar syringe TO BE ADMINISTER ED BY PHARMACIST FOR IMMUNIZATI ON [facility] candesartan 32 mg-hydrochl orothiazide 12.5 mg tablet TAKE 1 TABLET BY MOUTH EVERY DAY candesartan 32 mg-hydrochl orothiazide 12.5 mg tablet TAKE 1 TABLET BY MOUTH EVERY DAY No candesarta n 32 mg-hydroch lorothiazi de 12.5 mg tablet TAKE 1 TABLET BY MOUTH EVERY DAY [facility] carvedilol 25 mg tablet TAKE 1 TABLET BY MOUTH EVERY DAY WITH FOOD FOR 30 DAYS carvedilol 25 mg tablet TAKE 1 TABLET BY MOUTH EVERY DAY WITH FOOD FOR 30 DAYS No carvedilol 25 mg tablet TAKE 1 TABLET BY MOUTH EVERY DAY WITH FOOD FOR 30 DAYS [facility] cholestyram ine (with sugar) 4 gram oral powder 4 G DAILY cholestyram ine (with sugar) 4 gram oral powder 4 G DAILY No cholestyra mine (with sugar) 4 gram oral powder 4 G DAILY [facility] cholestyram ine (with sugar) 4 gram powder for susp in a packet MIX 1 PACKET IN WATER OR JUICE AND DRINK BY MOUTH IMMEDIATELY TWICE A DAY cholestyram ine (with sugar) 4 gram powder for susp in a packet MIX 1 PACKET IN WATER OR JUICE AND DRINK BY MOUTH IMMEDIATELY TWICE A DAY No cholestyra mine (with sugar) 4 gram powder for susp in a packet MIX 1 PACKET IN WATER OR JUICE AND DRINK BY MOUTH IMMEDIATEL Y TWICE A DAY [facility] Estrace 0.01% (0.1 mg/gram) vaginal cream Insert 0.5 g every 72 hours by vaginal route at bedtime for 90 days. Estrace 0.01% (0.1 mg/gram) vaginal cream Insert 0.5 g every 72 hours by vaginal route at bedtime for 90 days. No .5g Estrace 0.01% (0.1 mg/gram) vaginal cream Insert 0.5 g every 72 hours by vaginal route at bedtime for 90 days. [facility] Fluzone High-Dose (PF) 180 mcg/0.5 mL intramuscul ar syringe TO BE ADMINISTERE D BY PHARMACIST FOR IMMUNIZATIO N Fluzone High-Dose (PF) 180 mcg/0.5 mL intramuscul ar syringe TO BE ADMINISTERE D BY PHARMACIST FOR IMMUNIZATIO N No Fluzone High-Dose (PF) 180 mcg/0.5 mL intramuscu lar syringe TO BE ADMINISTER ED BY PHARMACIST FOR IMMUNIZATI ON [facility] Fluzone High-Dose Quad (PF) 240 mcg/0.7 mL IM syringe ADM 0.7ML IM UTD Fluzone High-Dose Quad (PF) 240 mcg/0.7 mL IM syringe ADM 0.7ML IM UTD No Fluzone High-Dose Quad (PF) 240 mcg/0.7 mL IM syringe ADM 0.7ML IM UTD [facility] gabapentin 100 mg capsule TAKE 1 CAPSULE BY MOUTH TWICE A DAY gabapentin 100 mg capsule TAKE 1 CAPSULE BY MOUTH TWICE A DAY No gabapentin 100 mg capsule TAKE 1 CAPSULE BY MOUTH TWICE A DAY [facility] loratadine 10 mg tablet TAKE 1 TABLET BY MOUTH EVERY DAY loratadine 10 mg tablet TAKE 1 TABLET BY MOUTH EVERY DAY No loratadine 10 mg tablet TAKE 1 TABLET BY MOUTH EVERY DAY [facility] meloxicam 7.5 mg tablet 1 TABLET BY MOUTH EVERY DAY WITH FOOD meloxicam 7.5 mg tablet 1 TABLET BY MOUTH EVERY DAY WITH FOOD No meloxicam 7.5 mg tablet 1 TABLET BY MOUTH EVERY DAY WITH FOOD [facility] mupirocin 2 % topical ointment APPLY TOPICALLY TO THE AFFECTED AREA TWICE DAILY FOR 7 DAYS mupirocin 2 % topical ointment APPLY TOPICALLY TO THE AFFECTED AREA TWICE DAILY FOR 7 DAYS No mupirocin 2 % topical ointment APPLY TOPICALLY TO THE AFFECTED AREA TWICE DAILY FOR 7 DAYS [facility] Myrbetriq 50 mg tablet,exte nded release Take 1 tablet every day by oral route as directed for 30 days. Myrbetriq 50 mg tablet,exte nded release Take 1 tablet every day by oral route as directed for 30 days. No 1 Q1D Myrbetriq 50 mg tablet,ext ended release Take 1 tablet every day by oral route as directed for 30 days. [facility] ondansetron HCl 4 mg tablet TAKE 1 TABLET BY MOUTH EVERY 8 HOURS ondansetron HCl 4 mg tablet TAKE 1 TABLET BY MOUTH EVERY 8 HOURS No ondansetro n HCl 4 mg tablet TAKE 1 TABLET BY MOUTH EVERY 8 HOURS [facility] Plenvu 140 gram-9 gram-5.2 gram powder packs TAKE DIRECTED BY PHYSICIAN OFFICE Plenvu 140 gram-9 gram-5.2 gram powder packs TAKE DIRECTED BY PHYSICIAN OFFICE No Plenvu 140 gram-9 gram-5.2 gram powder packs TAKE DIRECTED BY PHYSICIAN OFFICE [facility] Pneumovax-2 3 25 mcg/0.5 mL injection syringe TO BE ADMINISTERE D BY PHARMACIST FOR IMMUNIZATIO N Pneumovax-2 3 25 mcg/0.5 mL injection syringe TO BE ADMINISTERE D BY PHARMACIST FOR IMMUNIZATIO N No Pneumovax- 23 25 mcg/0.5 mL injection syringe TO BE ADMINISTER ED BY PHARMACIST FOR IMMUNIZATI ON [facility] rosuvastati n 5 mg tablet TAKE 1 TABLET BY MOUTH EVERY OTHER DAY FOR 90 DAYS rosuvastati n 5 mg tablet TAKE 1 TABLET BY MOUTH EVERY OTHER DAY FOR 90 DAYS No rosuvastat in 5 mg tablet TAKE 1 TABLET BY MOUTH EVERY OTHER DAY FOR 90 DAYS [facility] Shingrix (PF) 50 mcg/0.5 mL intramuscul ar suspension, kit TO BE ADMINISTERE D BY PHARMACIST FOR IMMUNIZATIO N Shingrix (PF) 50 mcg/0.5 mL intramuscul ar suspension, kit TO BE ADMINISTERE D BY PHARMACIST FOR IMMUNIZATIO N No Shingrix (PF) 50 mcg/0.5 mL intramuscu lar suspension , kit TO BE ADMINISTER ED BY PHARMACIST FOR IMMUNIZATI ON [facility] Suprep Bowel Prep Kit 17.5 gram-3.13 gram-1.6 gram oral solution Suprep Bowel Prep Kit 17.5 gram-3.13 gram-1.6 gram oral solution No Suprep Bowel Prep Kit 17.5 gram-3.13 gram-1.6 gram oral solution [facility] UltraFlora Biome Pro - 90 Capsules 1 capsule per day Take 1 capsule PO every day as directed UltraFlora Biome Pro - 90 Capsules 1 capsule per day Take 1 capsule PO every day as directed No UltraFlora Biome Pro - 90 Capsules 1 capsule per day Take 1 capsule PO every day as directed [facility] Xhance 93 mcg/actuati on breath activated aerosol USE 2 SPRAYS IN EACH NOSTRIL EVERY DAY Xhance 93 mcg/actuati on breath activated aerosol USE 2 SPRAYS IN EACH NOSTRIL EVERY DAY No Xhance 93 mcg/actuat ion breath activated aerosol USE 2 SPRAYS IN EACH NOSTRIL EVERY DAY [facility] amlodipine 2.5 mg tablet TAKE 1 TABLET BY MOUTH EVERY DAY amlodipine 2.5 mg tablet TAKE 1 TABLET BY MOUTH EVERY DAY No amlodipine 2.5 mg tablet TAKE 1 TABLET BY MOUTH EVERY DAY [facility] amoxicillin 875 mg tablet TAKE 1 TABLET TWICE A DAY UNTIL GONE FOR INFECTION amoxicillin 875 mg tablet TAKE 1 TABLET TWICE A DAY UNTIL GONE FOR INFECTION No amoxicilli n 875 mg tablet TAKE 1 TABLET TWICE A DAY UNTIL GONE FOR INFECTION [facility] Boostrix Tdap 2.5 Lf unit-8 mcg-5 Lf/0.5 mL intramuscul ar syringe TO BE ADMINISTERE D BY PHARMACIST FOR IMMUNIZATIO N Boostrix Tdap 2.5 Lf unit-8 mcg-5 Lf/0.5 mL intramuscul ar syringe TO BE ADMINISTERE D BY PHARMACIST FOR IMMUNIZATIO N No Boostrix Tdap 2.5 Lf unit-8 mcg-5 Lf/0.5 mL intramuscu lar syringe TO BE ADMINISTER ED BY PHARMACIST FOR IMMUNIZATI ON [facility] candesartan 32 mg-hydrochl orothiazide 12.5 mg tablet TAKE 1 TABLET BY MOUTH EVERY DAY candesartan 32 mg-hydrochl orothiazide 12.5 mg tablet TAKE 1 TABLET BY MOUTH EVERY DAY No candesarta n 32 mg-hydroch lorothiazi de 12.5 mg tablet TAKE 1 TABLET BY MOUTH EVERY DAY [facility] carvedilol 25 mg tablet TAKE 1 TABLET BY MOUTH EVERY DAY WITH FOOD FOR 30 DAYS carvedilol 25 mg tablet TAKE 1 TABLET BY MOUTH EVERY DAY WITH FOOD FOR 30 DAYS No carvedilol 25 mg tablet TAKE 1 TABLET BY MOUTH EVERY DAY WITH FOOD FOR 30 DAYS [facility] cholestyram ine (with sugar) 4 gram oral powder 4 G DAILY cholestyram ine (with sugar) 4 gram oral powder 4 G DAILY No cholestyra mine (with sugar) 4 gram oral powder 4 G DAILY [facility] Estrace 0.01% (0.1 mg/gram) vaginal cream Insert 0.5 g every 72 hours by vaginal route at bedtime for 90 days. Estrace 0.01% (0.1 mg/gram) vaginal cream Insert 0.5 g every 72 hours by vaginal route at bedtime for 90 days. No .5g Estrace 0.01% (0.1 mg/gram) vaginal cream Insert 0.5 g every 72 hours by vaginal route at bedtime for 90 days. [facility] fluticasone propionate 50 mcg/actuati on nasal spray,suspe nsion INSTILL 1 SPRAY IN EACH NOSTRIL EVERY DAY 30 fluticasone propionate 50 mcg/actuati on nasal spray,suspe nsion INSTILL 1 SPRAY IN EACH NOSTRIL EVERY DAY 30 No fluticason e propionate 50 mcg/actuat ion nasal spray,susp ension INSTILL 1 SPRAY IN EACH NOSTRIL EVERY DAY 30 [facility] Fluzone High-Dose (PF) 180 mcg/0.5 mL intramuscul ar syringe TO BE ADMINISTERE D BY PHARMACIST FOR IMMUNIZATIO N Fluzone High-Dose (PF) 180 mcg/0.5 mL intramuscul ar syringe TO BE ADMINISTERE D BY PHARMACIST FOR IMMUNIZATIO N No Fluzone High-Dose (PF) 180 mcg/0.5 mL intramuscu lar syringe TO BE ADMINISTER ED BY PHARMACIST FOR IMMUNIZATI ON [facility] Fluzone High-Dose Quad (PF) 240 mcg/0.7 mL IM syringe ADM 0.7ML IM UTD Fluzone High-Dose Quad (PF) 240 mcg/0.7 mL IM syringe ADM 0.7ML IM UTD No Fluzone High-Dose Quad (PF) 240 mcg/0.7 mL IM syringe ADM 0.7ML IM UTD [facility] gabapentin 100 mg capsule TAKE 1 CAPSULE BY MOUTH TWICE A DAY gabapentin 100 mg capsule TAKE 1 CAPSULE BY MOUTH TWICE A DAY No gabapentin 100 mg capsule TAKE 1 CAPSULE BY MOUTH TWICE A DAY [facility] loratadine 10 mg tablet TAKE 1 TABLET BY MOUTH EVERY DAY loratadine 10 mg tablet TAKE 1 TABLET BY MOUTH EVERY DAY No loratadine 10 mg tablet TAKE 1 TABLET BY MOUTH EVERY DAY [facility] meloxicam 7.5 mg tablet 1 TABLET BY MOUTH EVERY DAY WITH FOOD meloxicam 7.5 mg tablet 1 TABLET BY MOUTH EVERY DAY WITH FOOD No meloxicam 7.5 mg tablet 1 TABLET BY MOUTH EVERY DAY WITH FOOD [facility] mupirocin 2 % topical ointment APPLY TOPICALLY TO THE AFFECTED AREA TWICE DAILY FOR 7 DAYS mupirocin 2 % topical ointment APPLY TOPICALLY TO THE AFFECTED AREA TWICE DAILY FOR 7 DAYS No mupirocin 2 % topical ointment APPLY TOPICALLY TO THE AFFECTED AREA TWICE DAILY FOR 7 DAYS [facility] Myrbetriq 25 mg tablet,exte nded release Take 1 tablet every day by oral route as directed for 90 days. Myrbetriq 25 mg tablet,exte nded release Take 1 tablet every day by oral route as directed for 90 days. No 1 Q1D Myrbetriq 25 mg tablet,ext ended release Take 1 tablet every day by oral route as directed for 90 days. [facility] Myrbetriq 50 mg tablet,exte nded release Take 1 tablet every day by oral route as directed for 30 days. Myrbetriq 50 mg tablet,exte nded release Take 1 tablet every day by oral route as directed for 30 days. No 1 Q1D Myrbetriq 50 mg tablet,ext ended release Take 1 tablet every day by oral route as directed for 30 days. [facility] ofloxacin 0.3 % eye drops PLEASE SEE ATTACHED FOR DETAILED DIRECTIONS ofloxacin 0.3 % eye drops PLEASE SEE ATTACHED FOR DETAILED DIRECTIONS No ofloxacin 0.3 % eye drops PLEASE SEE ATTACHED FOR DETAILED DIRECTIONS [facility] ondansetron HCl 4 mg tablet TAKE 1 TABLET BY MOUTH EVERY 8 HOURS ondansetron HCl 4 mg tablet TAKE 1 TABLET BY MOUTH EVERY 8 HOURS No ondansetro n HCl 4 mg tablet TAKE 1 TABLET BY MOUTH EVERY 8 HOURS [facility] Plenvu 140 gram-9 gram-5.2 gram powder packs TAKE DIRECTED BY PHYSICIAN OFFICE Plenvu 140 gram-9 gram-5.2 gram powder packs TAKE DIRECTED BY PHYSICIAN OFFICE No Plenvu 140 gram-9 gram-5.2 gram powder packs TAKE DIRECTED BY PHYSICIAN OFFICE [facility] Pneumovax-2 3 25 mcg/0.5 mL injection syringe TO BE ADMINISTERE D BY PHARMACIST FOR IMMUNIZATIO N Pneumovax-2 3 25 mcg/0.5 mL injection syringe TO BE ADMINISTERE D BY PHARMACIST FOR IMMUNIZATIO N No Pneumovax- 23 25 mcg/0.5 mL injection syringe TO BE ADMINISTER ED BY PHARMACIST FOR IMMUNIZATI ON [facility] Prolensa 0.07 % eye drops INSTILL 1 DROP TO THE RIGHT EYE EVERY DAY FOR 2 WEEKS Prolensa 0.07 % eye drops INSTILL 1 DROP TO THE RIGHT EYE EVERY DAY FOR 2 WEEKS No Prolensa 0.07 % eye drops INSTILL 1 DROP TO THE RIGHT EYE EVERY DAY FOR 2 WEEKS [facility] rosuvastati n 5 mg tablet TAKE 1 TABLET BY MOUTH EVERY OTHER DAY FOR 90 DAYS rosuvastati n 5 mg tablet TAKE 1 TABLET BY MOUTH EVERY OTHER DAY FOR 90 DAYS No rosuvastat in 5 mg tablet TAKE 1 TABLET BY MOUTH EVERY OTHER DAY FOR 90 DAYS [facility] Shingrix (PF) 50 mcg/0.5 mL intramuscul ar suspension, kit TO BE ADMINISTERE D BY PHARMACIST FOR IMMUNIZATIO N Shingrix (PF) 50 mcg/0.5 mL intramuscul ar suspension, kit TO BE ADMINISTERE D BY PHARMACIST FOR IMMUNIZATIO N No Shingrix (PF) 50 mcg/0.5 mL intramuscu lar suspension , kit TO BE ADMINISTER ED BY PHARMACIST FOR IMMUNIZATI ON [facility] Suprep Bowel Prep Kit 17.5 gram-3.13 gram-1.6 gram oral solution Suprep Bowel Prep Kit 17.5 gram-3.13 gram-1.6 gram oral solution No Suprep Bowel Prep Kit 17.5 gram-3.13 gram-1.6 gram oral solution [facility] tamsulosin 0.4 mg capsule Take 1 capsule every day by oral route as directed for 90 days. tamsulosin 0.4 mg capsule Take 1 capsule every day by oral route as directed for 90 days. No 1capsul e(s) Q1D tamsulosin 0.4 mg capsule Take 1 capsule every day by oral route as directed for 90 days. [facility] UltraFlora Biome Pro - 90 Capsules 1 capsule per day Take 1 capsule PO every day as directed UltraFlora Biome Pro - 90 Capsules 1 capsule per day Take 1 capsule PO every day as directed No UltraFlora Biome Pro - 90 Capsules 1 capsule per day Take 1 capsule PO every day as directed [facility] Xhance 93 mcg/actuati on breath activated aerosol USE 2 SPRAYS IN EACH NOSTRIL EVERY DAY Xhance 93 mcg/actuati on breath activated aerosol USE 2 SPRAYS IN EACH NOSTRIL EVERY DAY No Xhance 93 mcg/actuat ion breath activated aerosol USE 2 SPRAYS IN EACH NOSTRIL EVERY DAY [facility] Immunizations Ordered Immunization Name Filled Immunization Name Date Status Comments Source Pneumococcal 13 Conjugate, PCV13 (Prevnar 13) 2016-10-29 00:00:00 Completed [facility] Pneumococcal 13 Conjugate, PCV13 (Prevnar 13) 2016-10-29 00:00:00 Completed [facility] Pneumococcal 13 Conjugate, PCV13 (Prevnar 13) 2016-10-29 00:00:00 Completed [facility] Pneumococcal 13 Conjugate, PCV13 (Prevnar 13) 2016-10-29 00:00:00 Completed [facility] Pneumococcal 13 Conjugate, PCV13 (Prevnar 13) 2016-10-29 00:00:00 Completed [facility] Pneumococcal 13 Conjugate, PCV13 (Prevnar 13) 2016-10-29 00:00:00 Completed [facility] Pneumococcal 13 Conjugate, PCV13 (Prevnar 13) 2016-10-29 00:00:00 Completed [facility] Pneumococcal 13 Conjugate, PCV13 (Prevnar 13) 2016-10-29 00:00:00 Completed [facility] Pneumococcal 13 Conjugate, PCV13 (Prevnar 13) 2016-10-29 00:00:00 Completed [facility] Pneumococcal 13 Conjugate, PCV13 (Prevnar 13) 2016-10-29 00:00:00 Completed [facility] Pneumococcal 13 Conjugate, PCV13 (Prevnar 13) 2016-10-29 00:00:00 Completed [facility] Pneumococcal 13 Conjugate, PCV13 (Prevnar 13) 2016-10-29 00:00:00 Completed [facility] Pneumococcal 13 Conjugate, PCV13 (Prevnar 13) 2016-10-29 00:00:00 Completed [facility] Pneumococcal 13 Conjugate, PCV13 (Prevnar 13) 2016-10-29 00:00:00 Completed [facility] Pneumococcal 13 Conjugate, PCV13 (Prevnar 13) 2016-10-29 00:00:00 Completed [facility] Pneumococcal 13 Conjugate, PCV13 (Prevnar 13) 2016-10-29 00:00:00 Completed [facility] Pneumococcal 13 Conjugate, PCV13 (Prevnar 13) 2016-10-29 00:00:00 Completed [facility] Pneumococcal 13 Conjugate, PCV13 (Prevnar 13) 2016-10-29 00:00:00 Completed [facility] Pneumococcal 13 Conjugate, PCV13 (Prevnar 13) 2016-10-29 00:00:00 Completed [facility] Pneumococcal Vaccine, Conjugate 13 2016-10-29 00:00:00 Completed [facility] - External Pneumococcal Vaccine, Conjugate 13 2016-10-29 00:00:00 Completed Arlyn Seybold - External Pneumococcal Vaccine, Conjugate 13 Unknown Completed Arlyn Seybold - External Pneumococcal Vaccine, Conjugate 13 Unknown Completed Arlyn Seybold - External Influenza Virus Vaccine, High Dose, Age 65 And Up Unknown Completed Arlyn Seybold - External Pneumococcal Vaccine, Conjugate 13 Unknown Completed Arlyn Seybold - External Influenza Virus Vaccine, High Dose, Age 65 And Up Unknown Completed Arlyn Seybold - External Pneumococcal Vaccine, Conjugate 13 Unknown Completed Arlyn Seybold - External Influenza Virus Vaccine, High Dose, Age 65 And Up Unknown Completed Arlyn Seybold - External Pneumococcal Vaccine, Conjugate 13 Unknown Completed Arlyn Seybold - External Influenza Virus Vaccine, High Dose, Age 65 And Up Unknown Completed Arlyn Seybold - External Pneumococcal Vaccine, Conjugate 13 Unknown Completed Arlyn Seybold - External Influenza Virus Vaccine, High Dose, Age 65 And Up Unknown Completed Arlyn Seybold - External Pneumococcal Vaccine, Conjugate 13 Unknown Completed Arlyn Seybold - External Influenza Virus Vaccine, High Dose, Age 65 And Up Unknown Completed Arlyn Seybold - External Vital Signs Vital Name Observation Time Observation Value Comments S paige Systolic blood pressure 2024-01-01 14:49:00 126 mm[Hg] Arlyn Seybo ld - External Diastolic blood pressure 2024-01-01 14:49:00 80 mm[Hg] Arlyn Seybo ld - External Heart rate 2024-01-01 14:49:00 64 /min Kelse y Seybold - External Body temperature 2024-01-01 14:49:00 36.67 Ana Arlyn Seybold - External Respiratory rate 2024-01-01 14:49:00 16 /min Arlyn Seybold - External Body height 2024-01-01 14:49:00 154.9 cm Sonia ey Seybold - External Body weight 2024-01-01 14:49:00 72.576 kg Sonia ey Seybold - External BMI 2024-01-01 14:49:00 30.23 kg/m2 Sonia ey Seybold - External Oxygen saturation in Arterial blood by Pulse oximetry 2024-01-01 14:49:00 97 /min Arlyn Clarkybo ld - External Systolic blood pressure 2023-11-18 19:04:00 123 mm[Hg] Arlyn Clarkybo ld - External Diastolic blood pressure 2023-11-18 19:04:00 78 mm[Hg] Arlyn Seybo ld - External Heart rate 2023-11-18 19:04:00 69 /min Kelse y Seybold - External Body height 2023-11-18 19:04:00 154.9 cm Sonia ey Seybold - External Body weight 2023-11-18 19:04:00 72.576 kg Sonia ey Seybold - External BMI 2023-11-18 19:04:00 30.23 kg/m2 Sonia ey Seybold - External Systolic blood pressure 2023-07-01 15:00:00 112 mm[Hg] Arlyn Seybo ld - External Diastolic blood pressure 2023-07-01 15:00:00 66 mm[Hg] Arlyn Seybo ld - External Heart rate 2023-07-01 15:00:00 65 /min Kelse y Seybold - External Body temperature 2023-07-01 15:00:00 36.78 Ana Arlyn Seybold - External Respiratory rate 2023-07-01 15:00:00 14 /min Arlyn Seybold - External Body height 2023-07-01 15:00:00 154.9 cm Sonia ey Seybold - External Body weight 2023-07-01 15:00:00 74.39 kg Sonia ey Seybold - External BMI 2023-07-01 15:00:00 30.99 kg/m2 Sonia ey Seybold - External Systolic blood pressure 2023-03-27 13:47:00 180 mm[Hg] Arlyn Seybo ld - External Diastolic blood pressure 2023-03-27 13:47:00 78 mm[Hg] Arlyn Seybo ld - External Heart rate 2023-03-27 13:47:00 68 /min Kelse y Seybold - External Body temperature 2023-03-27 13:47:00 36.56 Ana Arlyn Seybold - External Respiratory rate 2023-03-27 13:47:00 14 /min Arlyn Seybold - External Body height 2023-03-27 13:47:00 154.9 cm Sonia ey Seybold - External Body weight 2023-03-27 13:47:00 73.483 kg Sonia ey Seybold - External BMI 2023-03-27 13:47:00 30.61 kg/m2 Sonia ey Seybold - External Systolic blood pressure 2023-02-24 20:13:00 134 mm[Hg] Arlyn Seybo ld - External Diastolic blood pressure 2023-02-24 20:13:00 72 mm[Hg] Arlyn Seybo ld - External Heart rate 2023-02-24 20:13:00 79 /min Kelse y Seybold - External Body temperature 2023-02-24 20:13:00 35 Ana Arlyn Seybold - External Respiratory rate 2023-02-24 20:13:00 14 /min Arlyn Seybold - External Body height 2023-02-24 20:13:00 154.9 cm Sonia ey Seybold - External Body weight 2023-02-24 20:13:00 74.39 kg Sonia ey Seybold - External BMI 2023-02-24 20:13:00 30.99 kg/m2 Sonia ey Seybold - External Systolic blood pressure 2023-01-27 18:53:00 135 mm[Hg] [facility] Diastolic blood pressure 2023-01-27 18:53:00 75 mm[Hg] [facility] Heart rate 2023-01-27 18:52:00 62 /min [facility] Body temperature 2023-01-27 18:52:00 36.56 Ana [facility] Respiratory rate 2023-01-27 18:52:00 18 /min [facility] Body height 2023-01-27 18:52:00 154.9 cm [facility] Body weight 2023-01-27 18:52:00 71.94 kg [facility] BMI 2023-01-27 18:52:00 29.97 kg/m2 [facility] Systolic blood pressure 2023-01-07 19:17:00 138 mm[Hg] Arlyn Seybo ld - External Diastolic blood pressure 2023-01-07 19:17:00 72 mm[Hg] Arlyn Seybo ld - External Heart rate 2023-01-07 19:17:00 66 /min Kelse y Seybold - External Body temperature 2023-01-07 19:17:00 37 Ana Arlyn Seybold - External Respiratory rate 2023-01-07 19:17:00 16 /min Arlyn Seybold - External Body height 2023-01-07 19:17:00 154.9 cm Sonia ey Seybold - External Body weight 2023-01-07 19:17:00 72.938 kg Sonia ey Seybold - External BMI 2023-01-07 19:17:00 30.38 kg/m2 Sonia ey Seybold - External Oxygen saturation in Arterial blood by Pulse oximetry 2023-01-07 19:17:00 95 /min Arlyn Seybo ld - External BP Diastolic 2022-12-20 00:00:00 70 mm[Hg] [facility] Height 2022-12-20 00:00:00 60 [in_i] [facility] BMI (Body Mass Index) 2022-12-20 00:00:00 30.7 kg/m2 [facility] BP Systolic 2022-12-20 00:00:00 134 mm[Hg] [facility] Body Weight 2022-12-20 00:00:00 157 [lb_av] [facility] Systolic blood pressure 2022-12-11 14:46:00 148 mm[Hg] [facility] Diastolic blood pressure 2022-12-11 14:46:00 80 mm[Hg] [facility] Heart rate 2022-12-11 14:46:00 59 /min [facility] Body temperature 2022-12-11 14:46:00 36.44 Ana [facility] Respiratory rate 2022-12-11 14:46:00 18 /min [facility] Body height 2022-12-11 14:46:00 154.9 cm [facility] Body weight 2022-12-11 14:46:00 72.439 kg [facility] BMI 2022-12-11 14:46:00 30.18 kg/m2 [facility] BP Diastolic 2022-11-21 00:00:00 72 mm[Hg] [facility] Height 2022-11-21 00:00:00 60 [in_i] [facility] BMI (Body Mass Index) 2022-11-21 00:00:00 30.7 kg/m2 [facility] BP Systolic 2022-11-21 00:00:00 132 mm[Hg] [facility] Body Weight 2022-11-21 00:00:00 157 [lb_av] [facility] BP Diastolic 2022-11-04 00:00:00 72 mm[Hg] [facility] Height 2022-11-04 00:00:00 60 [in_i] [facility] BMI (Body Mass Index) 2022-11-04 00:00:00 29.3 kg/m2 [facility] BP Systolic 2022-11-04 00:00:00 132 mm[Hg] [facility] Body Weight 2022-11-04 00:00:00 150 [lb_av] [facility] Systolic blood pressure 2022-10-02 18:20:00 164 mm[Hg] [facility] Diastolic blood pressure 2022-10-02 18:20:00 70 mm[Hg] [facility] Heart rate 2022-10-02 18:10:00 59 /min [facility] Respiratory rate 2022-10-02 18:10:00 22 /min [facility] Oxygen saturation in Arterial blood by Pulse oximetry 2022-10-02 18:10:00 98 /min [facility] Body temperature 2022-10-02 18:00:00 36 Ana [facility] Body weight 2022-09-25 18:00:00 68.947 kg [facility] BMI 2022-09-25 18:00:00 28.72 kg/m2 [facility] Oxygen saturation in Arterial blood by Pulse oximetry 2022-10-02 15:51:00 99 /min [facility] Systolic blood pressure 2022-10-02 15:50:00 173 mm[Hg] [facility] Diastolic blood pressure 2022-10-02 15:50:00 79 mm[Hg] [facility] Heart rate 2022-10-02 15:50:00 60 /min [facility] Body temperature 2022-10-02 15:50:00 36.39 Ana [facility] Respiratory rate 2022-10-02 15:50:00 17 /min [facility] Body weight 2022-09-25 18:00:00 68.947 kg [facility] BMI 2022-09-25 18:00:00 28.72 kg/m2 [facility] Heart rate 2022-09-18 17:25:00 56 /min [facility] Respiratory rate 2022-09-18 17:25:00 15 /min [facility] Oxygen saturation in Arterial blood by Pulse oximetry 2022-09-18 17:25:00 97 /min [facility] Systolic blood pressure 2022-09-18 17:21:00 141 mm[Hg] [facility] Diastolic blood pressure 2022-09-18 17:21:00 70 mm[Hg] [facility] Body temperature 2022-09-18 17:04:00 37.17 Ana [facility] Body weight 2022-09-11 15:00:00 70.308 kg [facility] BMI 2022-09-11 15:00:00 29.29 kg/m2 [facility] Systolic blood pressure 2022-09-18 15:08:00 137 mm[Hg] [facility] Diastolic blood pressure 2022-09-18 15:08:00 61 mm[Hg] [facility] Heart rate 2022-09-18 15:08:00 66 /min [facility] Body temperature 2022-09-18 15:08:00 36.33 Ana [facility] Respiratory rate 2022-09-18 15:08:00 18 /min [facility] Oxygen saturation in Arterial blood by Pulse oximetry 2022-09-18 15:08:00 99 /min [facility] Body weight 2022-09-11 15:00:00 70.308 kg [facility] BMI 2022-09-11 15:00:00 29.29 kg/m2 [facility] BP Diastolic 2022-08-06 00:00:00 69 mm[Hg] [facility] Height 2022-08-06 00:00:00 60 [in_i] [facility] BMI (Body Mass Index) 2022-08-06 00:00:00 29.3 kg/m2 [facility] BP Systolic 2022-08-06 00:00:00 134 mm[Hg] [facility] Body Weight 2022-08-06 00:00:00 150 [lb_av] [facility] BP Diastolic 2022-06-20 00:00:00 73 mm[Hg] [facility] Height 2022-06-20 00:00:00 60 [in_i] [facility] BMI (Body Mass Index) 2022-06-20 00:00:00 29.3 kg/m2 [facility] BP Systolic 2022-06-20 00:00:00 143 mm[Hg] [facility] Body Weight 2022-06-20 00:00:00 150 [lb_av] [facility] BP Diastolic 2022-04-26 00:00:00 73 mm[Hg] [facility] Height 2022-04-26 00:00:00 60 [in_i] [facility] BMI (Body Mass Index) 2022-04-26 00:00:00 31.2 kg/m2 [facility] BP Systolic 2022-04-26 00:00:00 143 mm[Hg] [facility] Body Weight 2022-04-26 00:00:00 160 [lb_av] [facility] BP Diastolic 2022-04-22 00:00:00 75 mm[Hg] [facility] Height 2022-04-22 00:00:00 60 [in_i] [facility] BMI (Body Mass Index) 2022-04-22 00:00:00 31.2 kg/m2 [facility] BP Systolic 2022-04-22 00:00:00 136 mm[Hg] [facility] Body Weight 2022-04-22 00:00:00 160 [lb_av] [facility] BP Diastolic 2022-04-15 00:00:00 75 mm[Hg] [facility] Height 2022-04-15 00:00:00 60 [in_i] [facility] BMI (Body Mass Index) 2022-04-15 00:00:00 31.2 kg/m2 [facility] BP Systolic 2022-04-15 00:00:00 136 mm[Hg] [facility] Body Weight 2022-04-15 00:00:00 160 [lb_av] [facility] Body height 2022-02-27 16:44:00 154.9 cm [facility] Body weight 2022-02-27 16:44:00 72.122 kg [facility] BMI 2022-02-27 16:44:00 30.04 kg/m2 [facility] BP Diastolic 2022-02-19 00:00:00 68 mm[Hg] [facility] Height 2022-02-19 00:00:00 60 [in_i] [facility] BMI (Body Mass Index) 2022-02-19 00:00:00 31.2 kg/m2 [facility] BP Systolic 2022-02-19 00:00:00 107 mm[Hg] [facility] Body Weight 2022-02-19 00:00:00 160 [lb_av] [facility] BP Diastolic 2021-12-11 00:00:00 68 mm[Hg] [facility] Height 2021-12-11 00:00:00 60 [in_i] [facility] BMI (Body Mass Index) 2021-12-11 00:00:00 31.2 kg/m2 [facility] BP Systolic 2021-12-11 00:00:00 107 mm[Hg] [facility] Body Weight 2021-12-11 00:00:00 160 [lb_av] [facility] BP Diastolic 2021-11-19 00:00:00 68 mm[Hg] [facility] Height 2021-11-19 00:00:00 60 [in_i] [facility] BMI (Body Mass Index) 2021-11-19 00:00:00 31.2 kg/m2 [facility] BP Systolic 2021-11-19 00:00:00 107 mm[Hg] [facility] Body Weight 2021-11-19 00:00:00 160 [lb_av] [facility] BP Diastolic 2021-11-09 00:00:00 78 mm[Hg] [facility] BP Systolic 2021-11-09 00:00:00 145 mm[Hg] [facility] Body Weight 2021-11-09 00:00:00 160 [lb_av] [facility] BP Diastolic 2021-11-05 00:00:00 71 mm[Hg] [facility] Height 2021-11-05 00:00:00 60 [in_i] [facility] BMI (Body Mass Index) 2021-11-05 00:00:00 31.2 kg/m2 [facility] BP Systolic 2021-11-05 00:00:00 106 mm[Hg] [facility] Body Weight 2021-11-05 00:00:00 160 [lb_av] [facility] BP Diastolic 2021-10-09 00:00:00 71 mm[Hg] [facility] Height 2021-10-09 00:00:00 60 [in_i] [facility] BMI (Body Mass Index) 2021-10-09 00:00:00 31.1 kg/m2 [facility] BP Systolic 2021-10-09 00:00:00 106 mm[Hg] [facility] Body Weight 2021-10-09 00:00:00 159 [lb_av] [facility] BP Diastolic 2021-01-23 00:00:00 73 mm[Hg] [facility] Height 2021-01-23 00:00:00 60 [in_i] [facility] BMI (Body Mass Index) 2021-01-23 00:00:00 32 kg/m2 [facility] BP Systolic 2021-01-23 00:00:00 138 mm[Hg] [facility] Body Weight 2021-01-23 00:00:00 164 [lb_av] [facility] Procedures Procedure Date / Time Performed Performing Clinician Source FOOT WEIGHT BEARING RIGHT 3 V 2023-11-18 19:46:39 Fallon Garrido - External ANKLE LEFT 3 VIEWS 2023-11-18 19:45:19 Fallon Garrido - External EXTERNAL PROVIDER RECORDS 2023-04-30 05:01:00 Doctor Unassigned, [place] [facility] AUTHORIZATION TO RELEASE PHI TO [facility] 2023-04-22 05:01:00 Doctor Unassigned, [place] [facility] PATIENT QUESTIONNAIRE 2022-12-26 05:01:00 Doctor Unassigned, [place] [facility] PATIENT FINANCIAL POLICY 2022-12-11 14:33:32 Doctor Unassigned, [place] [facility] MAMMO, screening, digital, bilateral 2022-11-04 00:00:00 [facility] PHACOEMULSIFICATION OF CATARACT WITH INTRAOCULAR LENS IMPLANT 2022-10-02 17:17:00 Jeffrey Faustin [facility] DAY SURGERY - ADC 2022-10-02 06:01:00 Doctor Unassigned, [place] [facility] CONSENT/REFUSAL FOR DIAGNOSI S AND TREATMENT 2022-09-30 15:01:40 Doctor Unassigned, [place] [facility] CONSENT/REFUSAL FOR DIAGNOSI S AND TREATMENT 2022-09-30 15:01:40 Doctor Unassigned, [place] [facility] ASSIGNMENT OF BENEFITS 2022-09-30 15:01:12 Doctor Unassigned, [place] [facility] ASSIGNMENT OF BENEFITS 2022-09-30 15:01:12 Doctor Unassigned, [place] [facility] PHACOEMULSIFICATION OF CATARACT WITH INTRAOCULAR LENS IMPLANT 2022-09-18 16:25:00 Jeffrey Faustin [facility] CBC WITH DIFF 2022-09-18 15:04:00 Romel Mcleod [facility] CBC WITH DIFF 2022-09-18 15:04:00 Romel Mcleod [facility] CONSENT/REFUSAL FOR DIAGNOSI S AND TREATMENT 2022-09-13 16:43:27 Doctor Unassigned, [place] [facility] PATIENT QUESTIONNAIRE 2022-02-27 05:01:00 Doctor Unassigned, [place] [facility] Hyste[facility] - Total [facility] Plan of Care Planned Activity Planned Date Details Comments Source Diagnostic Test Pending 2022-12-20 00:00:00 urinalysis, dipstick [code = urinalysis, dipstick] [facility] Encounters Start Date/Time End Date/Time Encounter Type Admission Type Attending Clinicians Care Facility Care Department Encounter ID Source 2022-07-10 15:23:02 Outpatient ElizabetEmely [facility] [id number] [facility] 2022-02-06 07:53:00 [facility] [id number] [facility] 2021-11-08 08:28:01 [facility] [id number] [facility] 2021-10-17 13:39:06 [facility] [id number] [facility] 2021-10-17 13:37:14 [facility] [id number] [facility] 2021-10-17 13:15:22 Outpatient Emely Steward [facility] [id number] [facility] 2021-10-17 13:01:51 Outpatient Emely Steward [facility] [id number] [facility] 2021-10-17 12:35:35 Outpatient Emely Steward [facility] [id number] [facility] 2021-10-17 12:20:18 Outpatient Emely Steward [facility] [id number] [facility] [facility] 2021-10-17 12:07:21 Outpatient Javier Van STHYACINTHLC STLC [id number] [facility] 2021-10-17 12:02:11 Outpatient Javier Van STLMLC STLC [id number] [facility] 2021-10-17 11:42:56 Out[facility] [id number] [facility] 2024-07-06 10:00:00 2024-07-06 10:00:00 Outpatient SG GOVEA [id number] [facility] 2024-01-26 09:20:00 2024-01-26 09:20:00 Outpatient SUZY MENDOZA [id number] [facility] 2024-01-05 15:30:00 2024-01-05 15:30:00 Outpatient MACK HARTLEY [id number] [facility] 2024-01-01 10:00:00 2024-01-01 10:00:00 Outpatient NISHANT GUTIERREZ [id number] [facility] 2024-01-01 00:00:00 2024-01-01 00:00:00 Outpatient NISHANT GUTIERREZ [id number] [facility] 2023-12-31 09:00:00 2023-12-31 09:00:00 Outpatient NISHANT GUTIERREZ [id number] [facility] 2023-12-30 09:20:00 2023-12-30 09:20:00 Outpatient MENDOZASUZY Bass ARLYN BLAND [id number] [facility] 2023-12-29 10:00:00 2023-12-29 10:00:00 Outpatient MENDOZASUZY ARLYN BLAND [id number] [facility] 2023-12-26 00:00:00 2023-12-26 00:00:00 Outpatient PREZAMACK Lou ARLYN BLAND [id number] [facility] 2023-12-15 00:00:00 2023-12-15 00:00:00 Outpatient PREZAMACK Lou ARLYN BLAND [id number] [facility] 2023-12-05 15:00:00 2023-12-05 15:00:00 Outpatient MIGUELINA SAMANO ARLYN BLAND [id number] [facility] 2023-11-26 00:00:00 2023-11-26 00:00:00 Outpatient BRENDANISHANT ARLYN BLAND [id number] [facility] 2023-11-26 00:00:00 2023-11-26 00:00:00 Outpatient GC_SWHAWPRC _Miller-M [facility] [id number] [facility] 2023-11-25 00:00:00 2023-11-25 00:00:00 Outpatient PREZAMACK Lou ARLYN BLAND [id number] [facility] 2023-11-25 00:00:00 2023-11-25 00:00:00 Outpatient PREZAMACK Lou ARLYN BLAND [id number] [facility] 2023-11-18 13:35:00 2023-11-18 13:35:00 Outpatient ARLYN BLAND [id number] [facility] 2023-11-18 13:30:00 2023-11-18 13:30:00 Outpatient ARLYN BLAND [id number] [facility] 2023-11-18 13:20:00 2023-11-18 13:20:00 Outpatient FALLON GARRIDO [id number] [facility] 2023-11-17 00:00:2023-11-17 00:00:00 Outpatient MACK HARTLEY ARLYN BLAND [id number] [facility] 2023-11-14 09:30:00 2023-11-14 09:30:00 Outpatient CLAIREJUAN Bowman ARLYN BLAND [id number] [facility] 2023-11-05 09:45:00 2023-11-05 09:45:00 Outpatient AMYCATIEBRIAN FIGUEREDO ARLYN BLAND [id number] [facility] 2023-10-27 09:20:00 2023-10-27 09:20:00 Outpatient SUZY MENDOZA [id number] [facility] 2023-10-20 00:00:00 2023-10-20 00:00:00 Outpatient MACK HARTLEY ARLYN BLAND [id number] [facility] 2023-10-17 10:23:00 2023-10-17 10:23:00 Outpatient KELLY SUZY ARLYN BLAND [id number] [facility] 2023-10-15 00:00:00 2023-10-15 00:00:00 Outpatient MD ARLYN PLATA [id number] [facility] 2023-09-24 00:00:00 2023-09-24 00:00:00 Outpatient NISHANT GUTIERREZ [id number] [facility] 2023-09-18 09:45:00 2023-09-18 09:45:00 Outpatient DENNIS GUPTA [id number] [facility] 2023-09-11 00:00:00 2023-09-11 00:00:00 Outpatient GC_SWHAWPRC _Miller-M PRIV PRIV [id number] [facility] 2023-09-11 00:00:00 2023-09-11 00:00:00 Outpatient ARLYN BLAND [id number] [facility] 2023-09-10 00:00:00 2023-09-10 00:00:00 Outpatient GC_SWHAWPRC _Miller-M PRIV PRIV [id number] [facility] 2023-08-29 00:00:00 2023-08-29 00:00:00 Outpatient ARLYN BLAND [id number] [facility] 2023-08-28 00:00:00 2023-08-28 00:00:00 Outpatient HUNDL, NISHANT BLAND [id number] [facility] 2023-08-01 08:45:00 2023-08-01 08:45:00 Outpatient DENNIS GUPTA ARLYN BLAND [id number] [facility] 2023-07-31 00:00:00 2023-07-31 00:00:00 Outpatient HUNDL, NISHANT BLAND [id number] [facility] 2023-07-30 00:00:00 2023-07-30 00:00:00 Outpatient HUNDL, NISHANT BLAND [id number] [facility] 2023-07-29 00:00:00 2023-07-29 00:00:00 Outpatient HUNDL, NISHANT BLAND [id number] [facility] 2023-07-29 00:00:00 2023-07-29 00:00:00 Outpatient PREZAS, MACK [facility]RLYN BLAND [id number] [facility] 2023-[facility]-28 16:40:00 2023-07-28 16:40:00 Outpatient MENDOZA, SUZY ARLYN BLAND [id number] [facility] 2023-07-28 14:00:00 2023-07-28 14:00:00 Outpatient VF1 ARLYN BLAND [id number] [facility] 2023-07-23 00:00:00 2023-07-23 00:00:00 Outpatient ARLYN BLAND [id number] [facility] 2023-07-09 13:50:00 2023-07-09 13:50:00 Outpatient 1, OPTICAL ARLYN BLAND [id number] [facility] 2023-07-09 13:30:00 2023-07-09 13:30:00 Outpatient TIEKRISTOPHER [id number] [facility] 2023-07-01 11:00:00 2023-07-01 11:00:00 Outpatient HUNDL, NISHANT BLAND [id number] [facility] 2023-07-01 00:00:00 2023-07-01 00:00:00 Outpatient AMIRA PONCE ARLYN BLAND [id number] [facility] 2023-06-27 08:30:00 2023-06-27 08:30:00 Outpatient NISHANT GUTIERREZ ARLYN BLAND [id number] [facility] 2023-06-19 09:30:00 2023-06-19 09:30:00 Outpatient ALEXANDER JAIDEN ARLYN BLAND [id number] [facility] 2023-06-13 08:00:00 2023-06-13 08:00:00 Outpatient KRISTOPHER MONTGOMERY [id number] [facility] 2023-06-11 00:00:00 2023-06-11 00:00:00 Outpatient MD ARLYN PLATA [id number] [facility] 2023-06-11 00:00:00 2023-06-11 00:00:00 Outpatient ARLYN BLAND [id number] [facility] 2023-06-02 00:00:00 2023-06-02 00:00:00 Outpatient GC_SWHAWPRC _Miller-M PRIV PRIV [id number] [facility] 2023-05-30 00:00:00 2023-05-30 00:00:00 Outpatient GC_SWHAWPRC _Miller-M PRIV PRIV [id number] [facility] 2023-05-30 00:00:00 2023-05-30 00:00:00 Outpatient ARLYN BLAND [id number] [facility] 2023-05-29 00:00:00 2023-05-29 00:00:00 Outpatient GC_SWHAWPRC _Miller-M PRIV PRIV [id number] [facility] 2023-05-14 00:00:00 2023-05-14 00:00:00 Outpatient MACK HARTLEY [id number] [facility] 2023-05-09 00:00:00 2023-05-09 00:00:00 Outpatient ARLYN BLAND [id number] [facility] 2023-05-06 00:00:00 2023-05-06 00:00:00 Outpatient BRENDA NISHANT BLAND [id number] [facility] 2023-04-30 00:00:00 2023-04-30 00:00:00 Orders Only Doctor Unassigned, [place] [facility] 1.2.840.114 350.1.13.10 4.2.7.2.686 [id number] [facility] 2023-04-25 00:00:00 2023-04-25 00:00:00 Telephone OspinaDavie dasha [facility] 1.2.840.114 350.1.13.10 4.2.7.2.686 [id number] [facility] 2023-04-22 00:00:00 2023-04-22 00:00:00 Orders Only Doctor Unassigned, [place] [facility] 1.2.840.114 350.1.13.10 4.2.7.2.686 [id number] [facility] 2023-04-21 00:00:00 2023-04-21 00:00:00 Outpatient MACK HARTLEY [id number] [facility] 2023-04-21 00:00:00 2023-04-21 00:00:00 Telephone Andrzej lou [facility] 1.2.840.114 350.1.13.10 4.2.7.2.686 [id number] [facility] 2023-04-07 00:00:00 2023-04-07 00:00:00 Outpatient NISHANT GUTIERREZ [id number] [facility] 2023-03-27 09:00:00 2023-03-27 09:00:00 Outpatient NISHANT GUTIERREZ [id number] [facility] 2023-03-26 00:00:00 2023-03-26 00:00:00 Outpatient GC_SWSAMEERAPRDomingo Greco PRIV PRIV [id number] [facility] 2023-03-26 00:00:00 2023-03-26 00:00:00 Outpatient GC_JOHN Greco PRIV PRIV [id number] [facility] 2023-03-19 00:00:00 2023-03-19 00:00:00 Outpatient NISHANT GUTIERREZ [id number] [facility] 2023-03-06 00:00:00 2023-03-06 00:00:00 Outpatient ARLYN BLAND [id number] [facility] 2023-03-06 00:00:00 2023-03-06 00:00:00 Outpatient ARLYN BLAND [id number] [facility] 2023-03-05 00:00:00 2023-03-05 00:00:00 Outpatient NISHANT GUTIERREZ [id number] [facility] 2023-03-05 00:00:00 2023-03-05 00:00:00 Outpatient ARLYN BLAND [id number] [facility] 2023-03-04 00:00:00 2023-03-04 00:00:00 Outpatient MACK HARTLEY [id number] [facility] 2023-03-04 00:00:00 2023-03-04 00:00:00 Outpatient MACK HARTLEY [id number] [facility] 2023-03-03 00:00:00 2023-03-03 00:00:00 Outpatient ARLYN BLAND [id number] [facility] 2023-02-26 08:10:00 2023-02-26 08:10:00 Outpatient LABMary BLAND [id number] [facility] 2023-02-26 00:00:00 2023-02-26 00:00:00 Outpatient GCONEIL Greco PRIV PRIV [id number] [facility] 2023-02-24 16:00:00 2023-02-24 16:00:00 Outpatient NISHANT GUTIERREZ ARLYN BLAND [id number] [facility] 2023-02-24 00:00:00 2023-02-24 00:00:00 Outpatient ARLYN BLAND [id number] [facility] 2023-01-30 00:00:00 2023-01-30 00:00:00 Outpatient ARLYN BLAND [id number] [facility] 2023-01-30 00:00:00 2023-01-30 00:00:00 Outpatient MACK HARTLEY ARLYN BLAND [id number] [facility] 2023-01-29 00:00:00 2023-01-29 00:00:00 Outpatient MACK HARTLEY ARLYN BLAND [id number] [facility] 2023-01-27 13:30:00 2023-01-27 14:17:47 Outpatient R MINA-AUNDREA S, KATHLEEN ANDRZEJ S KATHLEEN [facility] [id number] [facility] 2023-01-27 13:30:00 2023-01-27 14:17:47 Office Visit Queenie Chengsol [facility] 1.2.840.114 350.1.13.10 4.2.7.2.686 [id number] [facility] 2023-01-27 00:00:00 2023-01-27 00:00:00 Outpatient GC_SWHAWPRC _Miller-M [facility] [id number] [facility] 2023-01-10 00:00:00 2023-01-10 00:00:00 Outpatient ARLYN BLAND [id number] [facility] 2023-01-10 00:00:00 2023-01-10 00:00:00 Outpatient EMANUEL MANZANO [id number] [facility] 2023-01-10 00:00:00 2023-01-10 00:00:00 Outpatient ARLYN BLAND [id number] [facility] 2023-01-10 00:00:00 2023-01-10 00:00:00 Outpatient ARLYN BLAND [id number] [facility] Pulliam 2023-01-07 14:30:00 2023-01-07 14:30:00 Outpatient EMANUEL MANZANO [id number] [facility] Pulliam 2022-12-26 00:00:00 2022-12-26 00:00:00 Orders Only Doctor Unassigned, [place] [facility] 1..840.114 350.1.13.10 4.2.7.2.686 [id number] [facility] 2022-12-24 00:00:00 2022-12-24 00:00:00 Outpatient GC_SWHAWPRC _[facility] [id number] [facility] 2022-12-20 00:00:00 2022-12-20 00:00:00 Outpatient GC_SWHAWPRC _[facility] [id number] [facility] 2022-12-20 00:00:00 2022-12-20 00:00:00 Tiana Marx, BEEKEEPER: [address] [place] [address], [address], [place] [address] , Ph. [facility] - GC_SWHAWPRC _[place] Office [id number] [facility] 2022-12-12 00:00:00 2022-12-12 00:00:00 Outpatient GC_SWHAWPRC _[facility] [id number] [facility] 2022-12-11 10:15:00 2022-12-11 10:30:00 Office Visit Sarika Ohara [facility] 1..840.114 350.1.13.10 4.2.7.2.686 [id number] [facility] 2022-12-11 10:15:00 2022-12-11 10:15:00 Outpatient R SARIKA OHARA [facility] [id number] [facility] 2022-12-11 00:00:00 2022-12-11 00:00:00 Orders Only Doctor Unassigned, [place] [facility] 1..840.114 350.1.13.10 4.2.7.2.686 [id number] [facility] 2022-11-30 00:00:00 2022-11-30 00:00:00 Outpatient GC_CELENAHAWPRC _Brody-Valente [facility] PRIV [id number] [facility] 2022-11-27 00:00:00 2022-11-27 00:00:00 Telephone [facility] 1..840.114 350.1.13.10 4.2.7.2.686 [id number] [facility] 2022-11-21 05:23:00 2022-11-21 05:23:00 Outpatient EL Referred, Self HCACL AUNDREA [id number] [facility] 2022-11-21 00:00:00 2022-11-21 00:00:00 Outpatient GC_SWHAWPRC _Brody-Valente [facility] [id number] [facility] 2022-11-21 00:00:00 2022-11-21 00:00:00 Tiana Marx, BEEKEEPER: [address] [place] [address], [address], [place] [address] , Ph. [facility] - GC_SWHAWPRC _[place] Office [id number] [facility] 2022-11-20 00:00:00 2022-11-20 00:00:00 Outpatient GC_SWHAWPRC _Brody-Valente [facility] [id number] [facility] 2022-11-04 00:00:00 2022-11-04 00:00:00 Outpatient GC_SWHAWPRC _Brody-Valente [facility] [id number] [facility] 2022-11-04 00:00:00 2022-11-04 00:00:00 Tiana Marx, BEEKEEPER: [address] [place] [address], [address], [place] [address] , Ph. [facility] - GC_SWHAWPRC _[facility] [id number] [facility] 2022-10-30 00:00:00 2022-10-30 00:00:00 Outpatient LOUIS Greco [facility] [id number] [facility] 2022-10-30 00:00:00 2022-10-30 00:00:00 Outpatient GCONEIL Greco [facility] [id number] [facility] 2022-10-02 09:41:00 2022-10-02 12:28:00 Outpatient R RAMIN JEFFREY [facility] OPH [id number] [facility] 2022-10-02 09:41:00 2022-10-02 12:28:00 Hospital Encounter [place] [facility] 1.2.840.114 350.1.13.10 4.2.7.2.686 [id number] [facility] 2022-10-02 10:43:00 2022-10-02 11:18:00 Surgery [place] [facility] 1.2.840.114 350.1.13.10 4.2.7.2.686 [id number] [facility] 2022-10-02 00:00:00 2022-10-02 00:00:00 Outpatient GC_JOHN Greco [facility] [id number] [facility] 2022-09-18 08:42:00 2022-09-18 11:40:00 Hospital Encounter Jeffrey Faustin [facility] 1.2.840.114 350.1.13.10 4.2.7.2.686 [id number] [facility] 2022-09-18 08:42:00 2022-09-18 11:40:00 Outpatient R RAMIN JEFFREY [facility] OPH [id number] [facility] 2022-09-18 10:06:00 2022-09-18 10:40:00 Surgery Jeffrey Faustin [facility] 1..840.114 350.1.13.10 4.2.7.2.686 [id number] [facility] 2022-09-13 10:30:00 2022-09-13 10:45:00 Business Operations Manager Visit Pob, Adc Lab Main Jeffrey Faustin [facility] 1..840.114 350.1.13.10 4.2.7.2.686 [id number] [facility] 2022-09-13 10:30:00 2022-09-13 10:30:00 Outpatient R JEFFREY FAUSTIN [facility] [id number] [facility] 2022-09-13 00:00:00 2022-09-13 00:00:00 Orders Only Doctor Unassigned, [place] [facility] 1..840.114 350.1.13.10 4.2.7.2.686 [id number] [facility] 2022-09-04 00:00:00 2022-09-04 00:00:00 Outpatient GC[facility]SWHAWPRC [facility] [id number] [facility] 2022-08-07 00:00:00 2022-08-07 00:00:00 [facility] [id number] [facility] 2022-08-06 00:00:00 2022-08-06 00:00:00 Outpatient [facility]AWPRC [facility] [id number] [facility] 2022-08-06 00:00:00 2022-08-06 00:00:00 Debbi reyes MD: [address] [place] [address], [address], [place] [address] , Ph. [facility] - [facility] _[place] Office [id number] [facility] 2022-08-05 00:00:00 2022-08-05 00:00:00 Outpatient GC_SWHAWPRC _Miller-M PRIV PRIV [id number] [facility] 2022-07-17 00:00:00 2022-07-17 00:00:00 Outpatient GC_SWHAWPRC _Miller-M PRIV PRIV [id number] [facility] 2022-07-10 00:00:00 2022-07-10 00:00:00 Outpatient GC_SWHAWPRC _Miller-M PRIV PRIV [id number] [facility] 2022-06-20 00:00:00 2022-06-20 00:00:00 Outpatient GC_SWHAWPRC _Miller-M PRIV PRIV [id number] [facility] 2022-06-20 00:00:00 2022-06-20 00:00:00 Debbi reyes MD: [address] [place] [address], [address], [place] [address] , Ph. [facility] - GC_SWHAWPRC _[place] Office [id number] [facility] 2022-06-19 00:00:00 2022-06-19 00:00:00 Outpatient GC_SWHAWPRC _Miller-M PRIV PRIV [id number] [facility] 2022-06-18 00:00:00 2022-06-18 00:00:00 Outpatient GC_SWHAWPRC _Miller-M PRIV PRIV [id number] [facility] 2022-06-06 00:00:00 2022-06-06 00:00:00 Outpatient GC_SWHAWPRC _Miller-M PRIV PRIV [id number] [facility] 2022-05-04 00:00:00 2022-05-04 00:00:00 Outpatient GC_SWHAWPRC _Miller-M PRIV PRIV [id number] [facility] 2022-05-01 10:37:00 2022-05-02 18:53:00 Inpatient Debbi Desouza [facility].[id number] [place] [address] 2022-05-01 10:37:00 2022-05-01 10:36:00 Inpatient KUMAR Debbi Jack [facility].01 [id number] [facility] 2022-04-26 00:00:00 2022-04-26 00:00:00 Outpatient GC_SWHAWPRC _[facility] PRIV PRIV [id number] [facility] 2022-04-26 00:00:00 2022-04-26 00:00:00 tamra Marx, BEEKEEPER: [address], [address], [place] [address] , Ph. [facility] - GC_SWHAWPRC _[place] Office [id number] [facility] 2022-04-26 00:00:00 2022-04-26 00:00:00 Outpatient Francisco J [facility] PRIV [id number] 2022-04-25 00:00:00 2022-04-25 00:00:00 Outpatient GC_SWHAWPRC _[place]-[facility] PRIV PRIV [id number] [facility] 2022-04-24 00:00:00 2022-04-24 00:00:00 Outpatient GC_SWHAWPRC _Brody- PRIV PRIV [id number] [facility] 2022-04-22 00:00:00 2022-04-22 00:00:00 Outpatient GC_SWHAWPRC _[facility] PRIV [id number] [facility] 2022-04-22 00:00:00 2022-04-22 00:00:00 Debbi reyes MD: [address], [address], [place] [address] , Ph. [facility] - GC_SWHAWPRC _[place] Office [id number] [facility] 2022-04-22 00:00:00 2022-04-22 00:00:00 Outpatient Debbi Jack PRIV PRIV [id number] 2022-04-19 00:00:00 2022-04-19 00:00:00 Outpatient GC_SWHAWPRC _Miller-M PRIV PRIV [id number] [facility] 2022-04-17 00:00:00 2022-04-17 00:00:00 Outpatient GC_SWHAWPRC _Miller-M PRIV PRIV [id number] [facility] 2022-04-16 09:58:00 2022-04-16 09:58:00 Outpatient GC_SWHAWPRC _Miller-M PRIV PRIV [id number] [facility] 2022-04-15 11:43:00 2022-04-15 11:43:00 Outpatient GC_SWHAWPRC _Miller-M PRIV PRIV [id number] [facility] 2022-04-15 00:00:00 2022-04-15 00:00:00 [facility], BEEKEEPER: [address] [place] [address], [address], [place] [address] , Ph. [facility] - GC_SWHAWPRC _[place] Office [id number] [facility] 2022-04-15 00:00:00 2022-04-15 00:00:00 [facility] PRIV [id number] 2022-04-11 05:59:00 2022-04-11 05:59:00 Outpatient GC_SWHAWPRC _Miller-M PRIV PRIV [id number] [facility] 2022-04-04 09:41:00 2022-04-04 09:41:00 Outpatient GC_SWHAWPRC _Miller-M PRIV PRIV [id number] [facility] 2022-04-02 04:22:00 2022-04-02 04:22:00 Outpatient GC_SWHAWPRC _Miller-M PRIV PRIV [id number] [facility] 2022-02-27 11:00:00 2022-02-27 11:15:00 Telemedici ne Visit Sarika Ohara [facility] 1..840.114 [id number] [facility] 2022-02-27 11:00:00 2022-02-27 11:00:00 Outpatient SARIKA ARREDONDO [facility] [id number] [facility] 2022-02-27 00:00:00 2022-02-27 00:00:00 Orders Only Doctor Unassigned, [place] [facility] 1..840.114 350.1.13.10 [id number] [facility] 2022-02-21 13:00:00 2022-02-21 13:00:00 Outpatient Colby [facility]ISE [facility] [id number] [facility] 2022-02-19 01:28:00 2022-02-19 01:28:00 Outpatient GC_ZANDRAPRC MjValente PRIV PRIV [id number] [facility] 2022-02-19 00:00:00 2022-02-19 00:00:00 Debbi reyes MD: [address] [place] [address], [address], [place] [address] , Ph. [facility] - GC_S[facility]AW[facility] _[place] Office [id number] [facility] 2022-02-19 00:00:00 2022-02-19 00:00:00 Outpatient Debbi Jack PRIV PRIV [id number] 2022-02-15 03:29:00 2022-02-15 03:29:00 Outpatient GC_ZANDRAPRC ViktorVarun PRIV PRIV [id number] [facility] 2022-02-12 08:24:00 2022-02-12 08:24:00 Outpatient GC_ZANDRAPRC ViktorVarun PRIV PRIV [id number] [facility] 2021-12-11 03:28:00 2021-12-11 03:28:00 Outpatient GC_ZANDRAPRC Fannie PRIV PRIV [id number] [facility] 2021-12-11 00:00:00 2021-12-11 00:00:00 Debbi reyes MD: [address] [place] [address], [address], [place] [address] , Ph. [facility] - GC_[facility] _[place] Office [id number] [facility] 2021-12-11 00:00:00 2021-12-11 00:00:00 Outpatient Debbi Jack [facility] PRIV [id number] 2021-12-10 06:45:00 2021-12-10 06:45:00 Outpatient GC_[facility]ANDRAP[facility] Fannie [facility] PRIV [id number] [facility] 2021-11-22 12:14:00 2021-11-22 12:14:00 Outpatient GC_[facility] _Varun [facility] PRIV [id number] [facility] 2021-11-22 00:00:00 2021-11-22 00:00:00 Debbi reyes MD: [address] [place] [address], [address], [place] [address] , Ph. [facility] - GC_[facility] _[place] Office [id number] [facility] 2021-11-22 00:00:00 2021-11-22 00:00:00 Outpatient Debbi Jack [facility] PRIV [id number] 2021-11-21 09:10:00 2021-11-21 09:10:00 Outpatient GC_[facility] Fannie [facility] PRIV [id number] [facility] 2021-11-19 12:09:00 2021-11-19 12:09:00 Outpatient [facility] _[facility] PRIV [id number] [facility] 2021-11-19 00:00:00 2021-11-19 00:00:00 Francisco J, BEEKEEPER: [address], [address], [place] [address] , Ph. [facility] [id number] [facility] 2021-11-19 00:00:00 2021-11-19 00:00:00 Outpatient Francisco J [facility] PRIV [id number] 2021-11-18 02:33:00 2021-11-18 02:33:00 Outpatient GC_[facility] _Miller-M PRIV PRIV [id number] [facility] 2021-11-16 03:53:00 2021-11-16 03:53:00 Outpatient GC_[facility] _Miller-M PRIV PRIV [id number] [facility] 2021-11-09 12:09:00 2021-11-09 12:09:00 Outpatient [facility] _[facility] PRIV [id number] [facility] 2021-11-09 00:00:00 2021-11-09 00:00:00 Francisco J, BEEKEEPER: [address], [address], [place] [address] , Ph. [facility] [id number] [facility] 2021-11-09 00:00:00 2021-11-09 00:00:00 [facility] [id number] 2021-11-08 02:57:00 2021-11-08 02:57:00 Outpatient [facility] _[facility] PRIV [id number] [facility] 2021-11-05 05:42:00 2021-11-05 05:42:00 Outpatient GC_[facility] _[facility] PRIV PRIV [id number] [facility] 2021-11-05 00:00:00 2021-11-05 00:00:00 Debbi reyes MD: [address], [address], [place] [address] , Ph. [facility] - GC_[facility] _[place] Office [id number] [facility] 2021-11-05 00:00:00 2021-11-05 00:00:00 Outpatient Debbi Jack Kimball [facility] PRIV [id number] 2021-11-02 04:57:00 2021-11-02 04:57:00 Outpatient [facility] _[facility] PRIV PRIV [id number] [facility] 2021-10-30 02:41:00 2021-10-30 02:41:00 Outpatient [facility] _[facility] PRIV PRIV [id number] [facility] 2021-10-09 12:37:00 2021-10-09 12:37:00 Outpatient [facility] _[facility] PRIV PRIV [id number] [facility] 2021-10-09 00:00:00 2021-10-09 00:00:00 Outpatient Tiana Marx [facility] PRIV [id number] 2021-10-09 00:00:00 2021-10-09 00:00:00 JanuaryTushar Marx NP: [address], [address], [place] [address] , Ph. [facility] - [facility] _[place] Office [id number] [facility] 2021-10-08 12:51:00 2021-10-08 12:51:00 Outpatient [facility] _[facility] PRIV PRIV [id number] [facility] 2021-09-18 04:30:00 2021-09-18 04:30:00 Outpatient GC_[facility] Fannie PRIV PRIV [id number] [facility] 2021-08-21 01:39:00 2021-08-21 01:39:00 Outpatient [facility] Fannie PRIV PRIV [id number] [facility] 2021-01-25 01:39:00 2021-01-25 01:39:00 Outpatient [facility] Fannie PRIV PRIV [id number] [facility] 2021-01-23 12:24:00 2021-01-23 12:24:00 Outpatient GC_ZANDRAPRDomingo Greco PRIV PRIV [id number] [facility] 2021-01-23 00:00:00 2021-01-23 00:00:00 Debbi reyes MD: [address] [place] [address], [address], [place] [address] , Ph. [facility] - GC_[facility] _[place] Office [id number] [facility] 2021-01-23 00:00:00 2021-01-23 00:00:00 Outpatient Debbi Jack PRIV PRIV [id number] 2021-01-18 13:15:00 2021-01-18 13:15:00 Outpatient DENISE BORRERO [facility] [id number] [facility] 2021-01-18 03:24:00 2021-01-18 03:24:00 Outpatient GC_ZANDRAPRDomingo Greco PRIV PRIV [id number] [facility] 2021-01-17 01:31:00 2021-01-17 01:31:00 Outpatient GC_[facility]RC Fannie PRIV PRIV [id number] [facility] 2020-05-25 10:49:00 2020-05-25 10:49:00 [place] [id number] 2020-01-24 10:10:00 2020-01-24 10:10:00 Outpatient ISABELA MURPHY [facility] [id number] [facility] 2019-11-22 09:00:00 2019-11-22 09:00:00 Outpatient AUBRIE MALIN [facility] [id number] [facility] 2019-11-16 13:40:00 2019-11-16 13:40:00 Outpatient AUBRIE MALIN [facility] [id number] [facility] 2019-09-21 09:22:22 2019-09-21 11:28:00 Emergency [facility] ERT [id number] [facility] Results Test Description Test Time Test Comments Results Resul t Comments Source FOOT WEIGHT BEARING 3 V RIGHT 2023-11-18 19:48:02 HISTORY: ?foot painIMAGES: ? 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 There appears to be an early second digit hammertoe. Arlyn Pulliam - External ANKLE 3 VIEWS LEFT 2023-11-18 19:47:24 HISTORY: left ankle painIMAGES: ? Three views, left ankleFINDINGS: No diagnostic abnormality is seen in the left ankle. There is advanced arthritis of the distal navicular articulation. Arlyn Pulliam - External [facility] identified in Urine by [id number] 00:00:00* Test Item Value Reference Range Interpretation Comme nts Bacteria identified in Urine by Culture (test code = 630-4) no growth no growth [facility]inal[facility] macro (dipstick) panel - [id number] 00:00:00* Test Item Value Reference Range Interpretation Comme nts Specific gravity of Urine (t est code = 2965-2) 1.015 1.003-1.030 pH of Urine (test code = 2756-5) 5.5 5.0-8.0 Protein [Presence] in Urine by Test strip (test code = 12182-2) negative negative Glucose [Presence] in Urine by Test strip (test code = 41484-7) negative negative Ketones [Presence] in Urine by Test strip (test code = 2514-8) negative negative Urobilinogen [Units/volume] in Urine by Test strip (test code = 92678-7) 0.2 mg/dL 0.2-1.0 Bilirubin.total [Presence] i n Urine by Test strip (test code = 5770-3) negative negative Hemoglobin [Presence] in Uri ne by Test strip (test code = 5794-3) negative negative Nitrite [Presence] in Urine by Test strip (test code = 5802-4) negative negative Crystals [Presence] in Urine by Automated (test code = 30725-1) none none Leukocytes [Presence] in Uri ne by Automated (test code = 44452-8) 0-5 0-5 Erythrocytes [Presence] in U rine by Automated (test code = 04665-5) 0-2 0-2 RBC casts [Presence] in Urin e by Computer assisted method (test code = 69873-1) not present not present Hyaline casts [Presence] in Urine by Automated (test code = 37258-4) not present not present Epithelial cells [#/area] in Urine sediment by Automated count (test code = 78883-4) none none-few Granular casts [Presence] in Urine by Computer assisted method (test code = 70032-5) not present not present Bacteria [#/area] in Urine sediment by Automated count (test code = 28694-6) none none-few Leukocyte esterase [Presence ] in Urine by Test strip (test code = 5799-2) negative negative Color of Urine (test code = 5778-6) yellow yellow Character of Urine (test cod e = 20471-1) clear clear [facility]inalysis macro (dipstick) panel - [id number] 09:58:15* Test Item Value Reference Range Interpretation Comme nts Leukocytes (test code = Leukocytes) Negative Nitrite (test code = Nitrite) negative Protein (test code = Protein) Negative pH (test code = pH) 6.0 Blood (test code = Blood) Negative Ketone (test code = Ketone) Negative Glucose (test code = Glucose) Negative Appearance (test code = Appearance) Clear Color (test code = Color) Yellow [facility] identified in Urine by [id number] 00:00:00* Test Item Value Reference Range Interpretation Comme nts Bacteria identified in Urine by Culture (test code = 630-4) no growth no growth [facility] identified in Urine by [id number] 00:00:00* Test Item Value Reference Range Interpretation Comme nts Bacteria identified in Urine by Culture (test code = 630-4) no growth no growth [facility] Medical[facility]inalysis macro (dipstick) panel - [id number] 00:00:00* Test Item Value Reference Range Interpretation Comme nts Specific gravity of Urine (t est code = 2965-2) 1.005 1.003-1.030 pH of Urine (test code = 2756-5) 7.0 5.0-8.0 Protein [Presence] in Urine by Test strip (test code = 59568-4) negative negative Glucose [Presence] in Urine by Test strip (test code = 96375-1) negative negative Ketones [Presence] in Urine by Test strip (test code = 2514-8) negative negative Urobilinogen [Units/volume] in Urine by Test strip (test code = 48134-2) 0.2 mg/dL 0.2-1.0 Bilirubin.total [Presence] i n Urine by Test strip (test code = 5770-3) negative negative Hemoglobin [Presence] in Uri ne by Test strip (test code = 5794-3) negative negative Nitrite [Presence] in Urine by Test strip (test code = 5802-4) negative negative Crystals [Presence] in Urine by Automated (test code = 62677-2) none none Leukocytes [Presence] in Uri ne by Automated (test code = 77735-9) 0-5 0-5 Erythrocytes [Presence] in U rine by Automated (test code = 34740-2) 0-2 0-2 RBC casts [Presence] in Urin e by Computer assisted method (test code = 73860-7) not present not present Hyaline casts [Presence] in Urine by Automated (test code = 86496-8) not present not present Epithelial cells [#/area] in Urine sediment by Automated count (test code = 26877-2) none none-few Granular casts [Presence] in Urine by Computer assisted method (test code = 86415-0) not present not present Bacteria [#/area] in Urine sediment by Automated count (test code = 60282-7) none none-few Leukocyte esterase [Presence ] in Urine by Test strip (test code = 5799-2) negative negative Color of Urine (test code = 5778-6) yellow yellow Character of Urine (test cod e = 58603-7) clear clear [facility]inal[facility] macro (dipstick) panel - [id number] 00:00:00* Test Item Value Reference Range Interpretation Comme nts Specific gravity of Urine (t est code = 2965-2) 1.005 1.003-1.030 pH of Urine (test code = 2756-5) 7.0 5.0-8.0 Protein [Presence] in Urine by Test strip (test code = 07179-6) negative negative Glucose [Presence] in Urine by Test strip (test code = 31578-2) negative negative Ketones [Presence] in Urine by Test strip (test code = 2514-8) negative negative Urobilinogen [Units/volume] in Urine by Test strip (test code = 27576-5) 0.2 mg/dL 0.2-1.0 Bilirubin.total [Presence] i n Urine by Test strip (test code = 5770-3) negative negative Hemoglobin [Presence] in Uri ne by Test strip (test code = 5794-3) negative negative Nitrite [Presence] in Urine by Test strip (test code = 5802-4) negative negative Crystals [Presence] in Urine by Automated (test code = 58842-1) none none Leukocytes [Presence] in Uri ne by Automated (test code = 72609-6) 0-5 0-5 Erythrocytes [Presence] in U rine by Automated (test code = 16561-6) 0-2 0-2 RBC casts [Presence] in Urin e by Computer assisted method (test code = 78969-0) not present not present Hyaline casts [Presence] in Urine by Automated (test code = 82139-2) not present not present Epithelial cells [#/area] in Urine sediment by Automated count (test code = 98013-9) none none-few Granular casts [Presence] in Urine by Computer assisted method (test code = 00562-6) not present not present Bacteria [#/area] in Urine sediment by Automated count (test code = 20541-3) none none-few Leukocyte esterase [Presence ] in Urine by Test strip (test code = 5799-2) negative negative Color of Urine (test code = 5778-6) yellow yellow Character of Urine (test cod e = 69511-6) clear clear [facility] macro (dipstick) panel - [id number] 12:28:33* Test Item Value Reference Range Interpretation Comme nts Leukocytes (test code = Leukocytes) Negative Nitrite (test code = Nitrite) negative Protein (test code = Protein) Negative pH (test code = pH) 6.0 Blood (test code = Blood) Negative Ketone (test code = Ketone) Negative Glucose (test code = Glucose) Negative Appearance (test code = Appearance) Clear Color (test code = Color) Yellow [facility] macro (dipstick) panel - [id number] 12:28:33* Test Item Value Reference Range Interpretation Comme nts Leukocytes (test code = Leukocytes) Negative Nitrite (test code = Nitrite) negative Protein (test code = Protein) Negative pH (test code = pH) 6.0 Blood (test code = Blood) Negative Ketone (test code = Ketone) Negative Glucose (test code = Glucose) Negative Appearance (test code = Appearance) Clear Color (test code = Color) Yellow [facility] with [id number] 15:36:17* Test Item Value Reference Range Interpretation Comme nts WBC (test code = 6690-2) See_Comment [Automated [employer]] The system which generated this result transmitted reference range: 4.30 - 11.10 10*3/?L. The reference range was not used to interpret this result as normal/abnormal. RBC (test code = 789-8) See_Comment [Automated [employer]] The system which generated this result transmitted reference range: 3.93 - 5.25 10*6/?L. The reference range was not used to interpret this result as normal/abnormal. HGB (test code = 718-7) 12.6 g/dL 11.6-15.0 HCT (test code = 4544-3) 37.8 % 35.7-45.2 MCV (test code = 787-2) 90.6 fL 80.6-95.5 MCH (test code = 785-6) 30.2 pg 25.9-32.8 MCHC (test code = 786-4) 33.3 g/dL 31.6-35.1 RDW-SD (test code = 36061-7) 41.7 fL 39.0-49.9 RDW-CV (test code = 788-0) 12.6 % 12.0-15.5 PLT (test code = 777-3) See_Comment [Automated messa ge] The system which generated this result transmitted reference range: 166 - 358 10*3/?L. The reference range was not used to interpret this result as normal/abnormal. MPV (test code = 01839-8) 11.9 fL 9.5-12.9 NRBC/100 WBC (test code = 4545025843) See_Comment [Automated me ssage] The system which generated this result transmitted reference range: 0.0 - 10.0 /100 WBCs. The reference range was not used to interpret this result as normal/abnormal. NRBC x10^3 (test code = 1003051655) See_Comment [Automated me ssage] The system which generated this result transmitted reference range: 10*3/?L. The reference range was not used to interpret this result as normal/abnormal. GRAN MAT (NEUT) % (test code = 770-8) 57.3 % IMM GRAN % (test code = 5459747671) 0.30 % LYMPH % (test code = 736-9) 29.4 % MONO % (test code = 5905-5) 7.7 % EOS % (test code = 713-8) 4.7 % BASO % (test code = 706-2) 0.6 % GRAN MAT x10^3(ANC) (test code = 5673533911) 3.86 10*3/uL 1.88-7.09 IMM GRAN x10^3 (test code = 1686127099) 0.00-0.06 LYMPH x10^3 (test code = 731-0) 1.98 10*3/uL 1.32-3.29 MONO x10^3 (test code = 742-7) 0.52 10*3/uL 0.33-0.92 EOS x10^3 (test code = 711-2) 0.32 10*3/uL 0.03-0.39 BASO x10^3 (test code = 704-7) 0.04 10*3/uL 0.01-0.07 [facility] with [id number] 15:36:17* Test Item Value Reference Range Interpretation Comme nts WBC (test code = 6690-2) See_Comment [Automated messa ge] The system which generated this result transmitted reference range: 4.30 - 11.10 10*3/?L. The reference range was not used to interpret this result as normal/abnormal. RBC (test code = 789-8) See_Comment [Automated messa ge] The system which generated this result transmitted reference range: 3.93 - 5.25 10*6/?L. The reference range was not used to interpret this result as normal/abnormal. HGB (test code = 718-7) 12.6 g/dL 11.6-15.0 HCT (test code = 4544-3) 37.8 % 35.7-45.2 MCV (test code = 787-2) 90.6 fL 80.6-95.5 MCH (test code = 785-6) 30.2 pg 25.9-32.8 MCHC (test code = 786-4) 33.3 g/dL 31.6-35.1 RDW-SD (test code = 49600-3) 41.7 fL 39.0-49.9 RDW-CV (test code = 788-0) 12.6 % 12.0-15.5 PLT (test code = 777-3) See_Comment [Automated messa ge] The system which generated this result transmitted reference range: 166 - 358 10*3/?L. The reference range was not used to interpret this result as normal/abnormal. MPV (test code = 44257-7) 11.9 fL 9.5-12.9 NRBC/100 WBC (test code = 2697188472) See_Comment [Automated [employer] ssage] The system which generated this result transmitted reference range: 0.0 - 10.0 /100 WBCs. The reference range was not used to interpret this result as normal/abnormal. NRBC x10^3 (test code = 8504748492) See_Comment [Automated me ssage] The system which generated this result transmitted reference range: 10*3/?L. The reference range was not used to interpret this result as normal/abnormal. GRAN MAT (NEUT) % (test code = 770-8) 57.3 % IMM GRAN % (test code = 9788682036) 0.30 % LYMPH % (test code = 736-9) 29.4 % MONO % (test code = 5905-5) 7.7 % EOS % (test code = 713-8) 4.7 % BASO % (test code = 706-2) 0.6 % GRAN MAT x10^3(ANC) (test code = 6160109119) 3.86 10*3/uL 1.88-7.09 IMM GRAN x10^3 (test code = 6030250410) 0.00-0.06 LYMPH x10^3 (test code = 731-0) 1.98 10*3/uL 1.32-3.29 MONO x10^3 (test code = 742-7) 0.52 10*3/uL 0.33-0.92 EOS x10^3 (test code = 711-2) 0.32 10*3/uL 0.03-0.39 BASO x10^3 (test code = 704-7) 0.04 10*3/uL 0.01-0.07 [facility] - Urine 2022-08-06 12:30:02* Test Item Value Reference Range Interpretation Comme nts Leukocytes (test code = Leukocytes) Negative Nitrite (test code = Nitrite) negative Protein (test code = Protein) Negative pH (test code = pH) 7.0 Blood (test code = Blood) Negative Ketone (test code = Ketone) Negative Glucose (test code = Glucose) Negative Appearance (test code = Appearance) Clear Color (test code = Color) Pale Yellow [facility] Medical[facility]inal[facility] macro (dipstick) panel - [id number] 12:36:08* Test Item Value Reference Range Interpretation Comme nts Leukocytes (test code = Leukocytes) Negative Nitrite (test code = Nitrite) negative Protein (test code = Protein) Negative pH (test code = pH) 5.0 Blood (test code = Blood) Negative Ketone (test code = Ketone) Negative Bilirubin (test code = Bilirubin) Glucose (test code = Glucose) Negative Appearance (test code = Appearance) Clear Color (test code = Color) Yellow [facility] [id number] 08:10:00* Test Item Value Reference Range Interpretation Comme nts WHITE BLOOD CELL (test code = WBC) 9.3 x10 3/uL 4.5-11.0 RED BLOOD CELL (test code = RBC) 4.22 x10 6/uL 3.54-5.02 N HEMOGLOBIN (test code = HGB) 12.9 g/dL 11.0-15.0 N HEMATOCRIT (test code = HCT) 38.9 % 33.0-45.0 N MEAN CELL VOLUME (test code = MCV) 92.2 fL 81.0-99.0 N MEAN CELL HGB (test code = MCH) 30.6 pg 27.0-33.0 N MEAN CELL HGB CONCETRATION (test code = MCHC) 33.2 g/dL 33.0-37.0 N RED CELL DISTRIBUTION WIDTH CV (test code = RDW) 12.2 % 11.5-14.5 N RED CELL DISTRIBUTION WIDTH SD (test code = RDW-SD) 41.3 fL 37.0-54.0 N PLATELET COUNT (test code = PLT) 178 x10 3/uL 150-400 N MEAN PLATELET VOLUME (test c ode = MPV) 12.9 fL 7.0-9.0 H NEUTROPHIL % (test code = NT%) 89.2 % 56.0-77.0 H IMMATURE GRANULOCYTE % (test code = IG%) 0.3 % 0.0-2.0 N LYMPHOCYTE % (test code = LY%) 8.1 % 14.0-32.0 L MONOCYTE % (test code = MO%) 2.3 % 4.8-9.0 L EOSINOPHIL % (test code = EO%) 0.0 % 0.3-3.7 L BASOPHIL % (test code = BA%) 0.1 % 0.0-2.0 N NUCLEATED RBC % (test code = NRBC%) 0.0 % 0-0 N NEUTROPHIL # (test code = NT#) 8.31 x10 3/uL 2.0-7.6 H IMMATURE GRANULOCYTE # (test code = IG#) 0.03 x10 3/uL 0.00-0.03 N LYMPHOCYTE # (test code = LY#) 0.75 x10 3/uL 1.0-3.8 L MONOCYTE # (test code = MO#) 0.21 x10 3/uL 0.1-0.8 N EOSINOPHIL # (test code = EO#) 0.00 x10 3/uL 0.0-0.2 N BASOPHIL # (test code = BA#) 0.01 x10 3/uL 0.0-0.2 N NUCLEATED RBC # (test code = NRBC#) 0.00 x10 3/uL 0.0-0.1 N MANUAL DIFF REQUIRED (test c ode = MDIFF) NO AG HEPATITIS B [id number] 11:09:00* Test Item Value Reference Range Interpretation Comme nts AG HEPATITIS B SURFACE (test code = HBSAG) NON REACTIVE INDEX NonReactive AB HEPATITIS [id number] 11:09:00* Test Item Value Reference Range Interpretation Comme nts AB HEPATITIS C (test code = HCVAB) NON REACTIVE INDEX NON REACT. AB HIV 1 11:09:00* Test Item Value Reference Range Interpretation Comme nts AB HIV 1 2 (test code = XKX56CS) Nonreactive Nonreactive BASIC METABOLIC [id number] 10:31:00* Test Item Value Reference Range Interpretation Comme nts SODIUM (test code = NA) 145 mEq/L 134-147 N POTASSIUM (test code = K) 3.6 mEq/L 3.4-5.0 N CHLORIDE (test code = CL) 109 mEq/L 100-108 H CARBON DIOXIDE (test code = CO2) 30 mEq/l 21-33 N ANION GAP (test code = GAP) 9 0-20 N GLUCOSE (test code = GLU) 97 mg/dL 70-110 N BLOOD UREA NITROGEN (test code = BUN) 8 mg/dL 7-18 N GLOMERULAR FILTRATION RATE (test code = GFR) 81.1 70-80 H Units of measure = ml/min/1.73 m2 CREATININE (test code = CREAT) 0.7 mg/dL 0.6-1.3 N CALCIUM (test code = CA) 9.2 mg/dL 8.0-10.5 N THROMBOPLASTIN TIME [id number] 10:28:00* Test Item Value Reference Range Interpretation Comme nts THROMBOPLASTIN TIME PARTIAL (test code = PTT) 29.6 Seconds 25.0-39.5 N Therapeutic Rang e: 50.4 - 88.3 Seconds Effective 01/05/2019 PROTHROMBIN [id number] 10:28:00* Test Item Value Reference Range Interpretation Comme nts PROTHROMBIN TIME PATIENT (test code = PTP) 11.9 SECONDS 9.3-12.9 N INTERNATIONAL NORMAL RATIO (test code = INR) 1.1 0.8-1.2 N TARGET INR BY INDICATION Indication INR1. Prophylaxis of venous thrombosis 2.0 - 3.0 (orthopedic surgery), Prophylaxis of venous thrombosis (other than high-risk surgery), Treatment of Deep Vein Thrombosis/Pulmonary Embolism, Prevention of systemic embolism - Tissue heart valves, Acute Myocardial Infarction (to prevent systemic embolism), Valvular heart disease, Atrial Fibrillation, Bileaflet mechanical valve in aortic position.2. Mechanical prosthetic valves (high risk), 2.5 - 3.5 Presence of Lupus Anticoagulant or Antiphospholipid Antibodies, Prevention of systemic embolism - Acute Myocardial Infarction (to prevent recurrent infarct). URINALYSIS [id number] 10:25:00* Test Item Value Reference Range Interpretation Comme nts UA COLOR (test code = COLU) YELLOW YEL/STRAW UA APPEARANCE (test code = APPU) CLEAR CLEAR UA GLUCOSE DIPSTICK (test co de = DGLUU) NEGATIVE NEGATIVE UA BILIRUBIN DIPSTICK (test code = BILU) NEGATIVE NEGATIVE UA KETONE DIPSTICK (test cod e = KETU) NEGATIVE NEGATIVE UA SPECIFIC GRAVITY (test co de = SGU) 1.006 1.005-1.030 N UA BLOOD DIPSTICK (test code = ALISTAIR) NEGATIVE NEGATIVE UA PH DIPSTICK (test code = JULIA) 6.0 5.0-7.0 N UA PROTEIN DIPSTICK (test co de = PROU) NEGATIVE NEGATIVE UA UROBILINIOGEN DIPSTICK (t est code = URO) 0.2 mg/dL 0.2-1.0 UA NITRITE DIPSTICK (test co de = CARISSA) NEGATIVE NEGATIVE UA LEUKOCYTE ESTERASE DIPSTI CK (test code = LEUU) NEGATIVE NEGATIVE UA RBC (test code = RBCU) 0-3 RBC/HPF 0-3 UA WBC NO REFLEX (test code = WBCUCL) 0-3 WBC/HPF 0-3 UA BACTERIA (test code = BACU) TRACE /HPF NONE SEEN UA SQUAMOUS CELLS (test code = SQU) 0-5 /HPF NONE SEEN UA MUCUS (test code = MUCU) TRACE /LPF NONE SEEN COVID 19 Asymptomatic IH [id number] 10:15:00* Test Item Value Reference Range Interpretation Comme nts COVID 19 Asymptomatic IH AG (test code = COVNONPUIAG) Negative Negative A negative resul t is presumptive and should be confirmedwith an FDA authorized molecular assay, if necessary forpatient management.A positive result does not rule out co-infections withother pathogens.This test detects both viable (live) and non-viable,SARS-CoV, and SARS-CoV-2. Test performance depends on theamount of virus (antigen) in the sample.This test has not been FDA cleared or approved; the test hasbeen authorized by FDA under an Emergency Use Authorization(EUA) for use by laboratories certified under the CLIA thatmeet the requirements to perform moderate, high or waivedcomplexity tests. CBC W/AUTO [id number] 10:14:00* Test Item Value Reference Range Interpretation Comme nts WHITE BLOOD CELL (test code = WBC) 6.4 x10 3/uL 4.5-11.0 N RED BLOOD CELL (test code = RBC) 4.41 x10 6/uL 3.54-5.02 N HEMOGLOBIN (test code = HGB) 13.4 g/dL 11.0-15.0 N HEMATOCRIT (test code = HCT) 41.1 % 33.0-45.0 N MEAN CELL VOLUME (test code = MCV) 93.2 fL 81.0-99.0 N MEAN CELL HGB (test code = MCH) 30.4 pg 27.0-33.0 N MEAN CELL HGB CONCETRATION (test code = MCHC) 32.6 g/dL 33.0-37.0 L RED CELL DISTRIBUTION WIDTH CV (test code = RDW) 12.4 % 11.5-14.5 N RED CELL DISTRIBUTION WIDTH SD (test code = RDW-SD) 43.0 fL 37.0-54.0 N PLATELET COUNT (test code = PLT) 232 x10 3/uL 150-400 N MEAN PLATELET VOLUME (test c ode = MPV) 12.1 fL 7.0-9.0 H NEUTROPHIL % (test code = NT%) 59.2 % 56.0-77.0 N IMMATURE GRANULOCYTE % (test code = IG%) 0.2 % 0.0-2.0 N LYMPHOCYTE % (test code = LY%) 29.8 % 14.0-32.0 N MONOCYTE % (test code = MO%) 7.0 % 4.8-9.0 N EOSINOPHIL % (test code = EO%) 3.3 % 0.3-3.7 N BASOPHIL % (test code = BA%) 0.5 % 0.0-2.0 N NUCLEATED RBC % (test code = NRBC%) 0.0 % 0-0 N NEUTROPHIL # (test code = NT#) 3.79 x10 3/uL 2.0-7.6 N IMMATURE GRANULOCYTE # (test code = IG#) 0.01 x10 3/uL 0.00-0.03 N LYMPHOCYTE # (test code = LY#) 1.91 x10 3/uL 1.0-3.8 N MONOCYTE # (test code = MO#) 0.45 x10 3/uL 0.1-0.8 N EOSINOPHIL # (test code = EO#) 0.21 x10 3/uL 0.0-0.2 H BASOPHIL # (test code = BA#) 0.03 x10 3/uL 0.0-0.2 N NUCLEATED RBC # (test code = NRBC#) 0.00 x10 3/uL 0.0-0.1 N MANUAL DIFF REQUIRED (test c ode = MDIFF) NO - XR CHEST 2 [id number] 00:00:00 [facility] [place] : 1945 Sex: F FAX: Fantasma Miller [phone] [place]: St: PRE Name: CHANEL MOISE [facility] : 1945 Age/S: 76/F [address] [place] [address] Unit #: [id number] Loc: [place] [address] Phys: Debbi Manzo MD Acct: [id number] Dis Date: Status: PRE SDC PHONE #: [phone] Exam Date: 04/26/2022 0945FAX #: [phone] Reason: PAT EXAMS: CPT CODE: [id number] XR CHEST 2 V 40264 PROCEDURE INFORMATION: Exam: XR Chest Exam date and time: 04/26/2022 9:46 AM Age: 76 years old Clinical indication: Pre-operative exam; Respiratory screening exam; Additional info: Pat TECHNIQUE: Imaging protocol: Radiologic exam of the chest. Views: 2 views. PA and Lateral COMPARISON: No relevant prior studies available. FINDINGS: Lungs: No focal infiltrate identified within the lungs and no edema. Pleural spaces: Unremarkable. No pleural effusion. No pneumothorax. Heart/Mediastinum: Enlarged cardiac silhouette. Aortic calcification. Mediastinal structures otherwise unremarkable. Bones/joints: Focal kyphosis is s een in the lower thoracic region. Degenerative changes are seen about the visualized spine. IMPRESSION: 1. Enlarged cardiac silhouette. 2. No focal infiltrate within the lungs. at 1420 Reported and signed by: Jeffrey Henderson M.D. CC: Debbi Castillo Technologist: RT Tera(Colby) Trnscrd Date/Time/By: 04/26/2022 (1420) : By: [email or web address] Orig Print D/T: S: 04/26/2022 (7722) PAGE 1 Signed ReportBacteria identified in Urine by [id number] 00:00:00* Test Item Value Reference Range Interpretation Comme nts Bacteria identified in Urine by Culture (test code = 630-4) no growth no growth [facility] panel - [id number] 00:00:00* Test Item Value Reference Range Interpretation Comme nts Specific gravity of Urine (test code = 2965-2) 1.026 1.003-1.030 pH of Urine (test code = 2756-5) 6.0 5.0-8.0 Protein [Presence] in Urine by Test strip (test code = 14250-1) negative negative Glucose [Presence] in Urine by Test strip (test code = 19771-1) negative negative Ketones [Presence] in Urine by Test strip (test code = 2514-8) trace negative A Urobilinogen [Units/volume] in Urine by Test strip (test code = 88638-1) 0.2 mg/dL 0.2-1.0 Bilirubin.total [Presence] i n Urine by Test strip (test code = 5770-3) small negative A Hemoglobin [Presence] in Uri ne by Test strip (test code = 5794-3) negative negative Nitrite [Presence] in Urine by Test strip (test code = 5802-4) negative negative Crystals [type] in Urine sediment by Light microscopy (test code = 5782-8) moderate none A Leukocytes [#/area] in Urine sediment by Microscopy high power field (test code = 5821-4) 0-4 0-4 Erythrocytes [#/area] in Uri ne sediment by Microscopy high power field (test code = 55911-8) 2-5 none seen H RBC casts [Presence] in Urin e sediment by Light microscopy (test code = 01405-7) none seen 0-1 Hyaline casts [Presence] in Urine sediment by Light microscopy (test code = 12768-9) 0-4 0-4 Epithelial cells [Presence] in Urine sediment by Light microscopy (test code = 93060-3) few none-few Granular casts [Presence] in Urine sediment by Light microscopy (test code = 14118-4) none seen 0-1 Bacteria [Presence] in Urine sediment by Light microscopy (test code = 31902-9) few none-few Leukocyte esterase [Presence ] in Urine by Test strip (test code = 5799-2) negative negative Color of Urine (test code = 5778-6) dk yellow yellow, straw, laney Character of Urine (test cod e = 27838-6) clear clear [facility], LB + [id number] 00:00:00* Test Item Value Reference Range Interpretation Comme nts Microscopic observation [Identifier] in Cervix by Cyto stain.thin prep (test code = 62208-8) asc-US nilm A Human papilloma virus 31+33+35+39+45+51+52+56+58+59+66 +68 DNA [Presence] in Cervix by FLACO with probe detection (test code = 04988-6) not detected not detected Human papilloma virus 18 DNA [Presence] in Specimen by FLACO with probe detection (test code = 18490-7) not detected not detected Human papilloma virus 16 DNA [Presence] in Specimen by FLACO with probe detection (test code = 04276-8) not detected not detected [facility] macro (dipstick) panel - [id number] 12:49:20* Test Item Value Reference Range Interpretation Comme nts Leukocytes (test code = Leukocytes) Negative Nitrite (test code = Nitrite) negative Protein (test code = Protein) Negative pH (test code = pH) 5.0 Blood (test code = Blood) Small Ketone (test code = Ketone) Negative Glucose (test code = Glucose) Negative Appearance (test code = Appearance) Slightly Cloudy Color (test code = Color) Dark Yellow [facility] (dipstick) panel - [id number] 12:49:20* Test Item Value Reference Range Interpretation Comme nts Leukocytes (test code = Leukocytes) Negative Nitrite (test code = Nitrite) negative Protein (test code = Protein) Negative pH (test code = pH) 5.0 Blood (test code = Blood) Small Ketone (test code = Ketone) Negative Glucose (test code = Glucose) Negative Appearance (test code = Appearance) Slightly Cloudy Color (test code = Color) Dark Yellow [facility] (dipstick) panel - [id number] 12:13:04* Test Item Value Reference Range Interpretation Comme nts Leukocytes (test code = Leukocytes) Negative Nitrite (test code = Nitrite) negative Protein (test code = Protein) Negative pH (test code = pH) 5.0 Blood (test code = Blood) Negative Ketone (test code = Ketone) Negative Glucose (test code = Glucose) Negative Appearance (test code = Appearance) Clear Color (test code = Color) Yellow [facility]dipstick) panel - [id number] 10:26:00* Test Item Value Reference Range Interpretation Comme nts Leukocytes (test code = Leukocytes) Negative Nitrite (test code = Nitrite) negative Protein (test code = Protein) Negative pH (test code = pH) 5.5 Blood (test code = Blood) Negative Ketone (test code = Ketone) Negative Appearance (test code = Appearance) Clear Color (test code = Color) Pale Yellow [facility] (dipstick) panel - [id number] 11:06:33* Test Item Value Reference Range Interpretation Comme nts Leukocytes (test code = Leukocytes) Negative Nitrite (test code = Nitrite) negative Protein (test code = Protein) Negative pH (test code = pH) 6.0 Blood (test code = Blood) Small Ketone (test code = Ketone) Negative Glucose (test code = Glucose) Negative Appearance (test code = Appearance) Clear Color (test code = Color) Pale Yellow [facility] (dipstick) panel - [id number] 11:06:33* Test Item Value Reference Range Interpretation Comme nts Leukocytes (test code = Leukocytes) Negative Nitrite (test code = Nitrite) negative Protein (test code = Protein) Negative pH (test code = pH) 6.0 Blood (test code = Blood) Small Ketone (test code = Ketone) Negative Glucose (test code = Glucose) Negative Appearance (test code = Appearance) Clear Color (test code = Color) Pale Yellow [facility] (dipstick) panel - [id number] 11:06:33* Test Item Value Reference Range Interpretation Comme nts Leukocytes (test code = Leukocytes) Negative Nitrite (test code = Nitrite) negative Protein (test code = Protein) Negative pH (test code = pH) 6.0 Blood (test code = Blood) Small Ketone (test code = Ketone) Negative Glucose (test code = Glucose) Negative Appearance (test code = Appearance) Clear Color (test code = Color) Pale Yellow [facility] identified in Urine by [id number] 00:00:00* Test Item Value Reference Range Interpretation Comme nts Bacteria identified in Urine by Culture (test code = 630-4) no growth no growth [facility] identified in Urine by [id number] 00:00:00* Test Item Value Reference Range Interpretation Comme nts Bacteria identified in Urine by Culture (test code = 630-4) no growth no growth [facility] (dipstick) panel - [id number] 00:00:00* Test Item Value Reference Range Interpretation Comme nts Specific gravity of Urine (test code = 2965-2) 1.007 1.003-1.030 pH of Urine (test code = 2756-5) 6.0 5.0-8.0 Protein [Presence] in Urine by Test strip (test code = 77154-8) negative negative Glucose [Presence] in Urine by Test strip (test code = 22634-6) negative negative Ketones [Presence] in Urine by Test strip (test code = 2514-8) negative negative Urobilinogen [Units/volume] in Urine by Test strip (test code = 64843-4) 0.2 mg/dL 0.2-1.0 Bilirubin.total [Presence] i n Urine by Test strip (test code = 5770-3) negative negative Hemoglobin [Presence] in Uri ne by Test strip (test code = 5794-3) negative negative Nitrite [Presence] in Urine by Test strip (test code = 5802-4) negative negative Crystals [type] in Urine sediment by Light microscopy (test code = 5782-8) none none Leukocytes [#/area] in Urine sediment by Microscopy high power field (test code = 5821-4) 0-4 0-4 Erythrocytes [#/area] in Uri ne sediment by Microscopy high power field (test code = 37830-2) none seen none seen RBC casts [Presence] in Urin e sediment by Light microscopy (test code = 81813-8) none seen 0-1 Hyaline casts [Presence] in Urine sediment by Light microscopy (test code = 23435-3) 0-4 0-4 Epithelial cells [Presence] in Urine sediment by Light microscopy (test code = 59550-0) none none-few Granular casts [Presence] in Urine sediment by Light microscopy (test code = 72310-2) none seen 0-1 Bacteria [Presence] in Urine sediment by Light microscopy (test code = 12821-0) none none-few Leukocyte esterase [Presence ] in Urine by Test strip (test code = 5799-2) negative negative Color of Urine (test code = 5778-6) yellow yellow, straw, laney Character of Urine (test cod e = 77508-7) clear clear [facility] (dipstick) panel - [id number] 00:00:00* Test Item Value Reference Range Interpretation Comme nts Specific gravity of Urine (test code = 2965-2) 1.007 1.003-1.030 pH of Urine (test code = 2756-5) 6.0 5.0-8.0 Protein [Presence] in Urine by Test strip (test code = 55476-6) negative negative Glucose [Presence] in Urine by Test strip (test code = 50477-0) negative negative Ketones [Presence] in Urine by Test strip (test code = 2514-8) negative negative Urobilinogen [Units/volume] in Urine by Test strip (test code = 69794-5) 0.2 mg/dL 0.2-1.0 Bilirubin.total [Presence] i n Urine by Test strip (test code = 5770-3) negative negative Hemoglobin [Presence] in Uri ne by Test strip (test code = 5794-3) negative negative Nitrite [Presence] in Urine by Test strip (test code = 5802-4) negative negative Crystals [type] in Urine sediment by Light microscopy (test code = 5782-8) none none Leukocytes [#/area] in Urine sediment by Microscopy high power field (test code = 5821-4) 0-4 0-4 Erythrocytes [#/area] in Uri ne sediment by Microscopy high power field (test code = 16356-2) none seen none seen RBC casts [Presence] in Urin e sediment by Light microscopy (test code = 99618-7) none seen 0-1 Hyaline casts [Presence] in Urine sediment by Light microscopy (test code = 90030-1) 0-4 0-4 Epithelial cells [Presence] in Urine sediment by Light microscopy (test code = 11006-3) none none-few Granular casts [Presence] in Urine sediment by Light microscopy (test code = 37871-2) none seen 0-1 Bacteria [Presence] in Urine sediment by Light microscopy (test code = 51148-0) none none-few Leukocyte esterase [Presence ] in Urine by Test strip (test code = 5799-2) negative negative Color of Urine (test code = 5778-6) yellow yellow, straw, laney Character of Urine (test cod e = 99619-2) clear clear [facility] (dipstick) panel - [id number] 10:20:05* Test Item Value Reference Range Interpretation Comme nts Leukocytes (test code = Leukocytes) Negative Nitrite (test code = Nitrite) negative Protein (test code = Protein) Negative pH (test code = pH) 6.0 Blood (test code = Blood) Negative Ketone (test code = Ketone) Negative Glucose (test code = Glucose) Negative Appearance (test code = Appearance) Clear Color (test code = Color) Yellow [facility] macro (dipstick) panel - [id number] 10:20:05* Test Item Value Reference Range Interpretation Comme nts Leukocytes (test code = Leukocytes) Negative Nitrite (test code = Nitrite) negative Protein (test code = Protein) Negative pH (test code = pH) 6.0 Blood (test code = Blood) Negative Ketone (test code = Ketone) Negative Glucose (test code = Glucose) Negative Appearance (test code = Appearance) Clear Color (test code = Color) Yellow [facility] macro (dipstick) panel - [id number] 10:20:05* Test Item Value Reference Range Interpretation Comme nts Leukocytes (test code = Leukocytes) Negative Nitrite (test code = Nitrite) negative Protein (test code = Protein) Negative pH (test code = pH) 6.0 Blood (test code = Blood) Negative Ketone (test code = Ketone) Negative Glucose (test code = Glucose) Negative Appearance (test code = Appearance) Clear Color (test code = Color) Yellow [facility] (dipstick) panel - [id number] 15:10:49* Test Item Value Reference Range Interpretation Comme nts Leukocytes (test code = Leukocytes) Negative Nitrite (test code = Nitrite) negative Protein (test code = Protein) Negative pH (test code = pH) 5.0 Blood (test code = Blood) Negative Ketone (test code = Ketone) Negative Glucose (test code = Glucose) Negative Appearance (test code = Appearance) Clear Color (test code = Color) Pale Yellow [facility] (dipstick) panel - [id number] 15:10:49* Test Item Value Reference Range Interpretation Comme nts Leukocytes (test code = Leukocytes) Negative Nitrite (test code = Nitrite) negative Protein (test code = Protein) Negative pH (test code = pH) 5.0 Blood (test code = Blood) Negative Ketone (test code = Ketone) Negative Glucose (test code = Glucose) Negative Appearance (test code = Appearance) Clear Color (test code = Color) Pale Yellow [facility] (dipstick) panel - [id number] 15:10:49* Test Item Value Reference Range Interpretation Comme nts Leukocytes (test code = Leukocytes) Negative Nitrite (test code = Nitrite) negative Protein (test code = Protein) Negative pH (test code = pH) 5.0 Blood (test code = Blood) Negative Ketone (test code = Ketone) Negative Glucose (test code = Glucose) Negative Appearance (test code = Appearance) Clear Color (test code = Color) Pale Yellow [facility] (dipstick) panel - [id number] 15:10:49* Test Item Value Reference Range Interpretation Comme nts Leukocytes (test code = Leukocytes) Negative Nitrite (test code = Nitrite) negative Protein (test code = Protein) Negative pH (test code = pH) 5.0 Blood (test code = Blood) Negative Ketone (test code = Ketone) Negative Glucose (test code = Glucose) Negative Appearance (test code = Appearance) Clear Color (test code = Color) Pale Yellow [facility] identified in Urine by [id number] 00:00:00* Test Item Value Reference Range Interpretation Comme nts Bacteria identified in Urine by Culture (test code = 630-4) no growth no growth [facility] identified in Urine by [id number] 00:00:00* Test Item Value Reference Range Interpretation Comme nts Bacteria identified in Urine by Culture (test code = 630-4) no growth no growth [facility] identified in Urine by [id number] 00:00:00* Test Item Value Reference Range Interpretation Comme nts Bacteria identified in Urine by Culture (test code = 630-4) no growth no growth [facility] (dipstick) panel - [id number] 00:00:00* Test Item Value Reference Range Interpretation Comme nts Specific gravity of Urine (test code = 2965-2) 1.007 1.003-1.030 pH of Urine (test code = 2756-5) 6.0 5.0-8.0 Protein [Presence] in Urine by Test strip (test code = 92323-7) negative negative Glucose [Presence] in Urine by Test strip (test code = 42505-7) negative negative Ketones [Presence] in Urine by Test strip (test code = 2514-8) negative negative Urobilinogen [Units/volume] in Urine by Test strip (test code = 72665-1) 0.2 mg/dL 0.2-1.0 Bilirubin.total [Presence] i n Urine by Test strip (test code = 5770-3) negative negative Hemoglobin [Presence] in Uri ne by Test strip (test code = 5794-3) negative negative Nitrite [Presence] in Urine by Test strip (test code = 5802-4) negative negative Crystals [type] in Urine sediment by Light microscopy (test code = 5782-8) none none Leukocytes [#/area] in Urine sediment by Microscopy high power field (test code = 5821-4) 0-4 0-4 Erythrocytes [#/area] in Uri ne sediment by Microscopy high power field (test code = 93985-8) none seen none seen RBC casts [Presence] in Urin e sediment by Light microscopy (test code = 49068-7) none seen 0-1 Hyaline casts [Presence] in Urine sediment by Light microscopy (test code = 07096-8) 0-4 0-4 Epithelial cells [Presence] in Urine sediment by Light microscopy (test code = 22465-2) none none-few Granular casts [Presence] in Urine sediment by Light microscopy (test code = 64980-0) none seen 0-1 Bacteria [Presence] in Urine sediment by Light microscopy (test code = 20650-3) none none-few Leukocyte esterase [Presence ] in Urine by Test strip (test code = 5799-2) negative negative Color of Urine (test code = 5778-6) yellow yellow, straw, laney Character of Urine (test cod e = 45969-8) clear clear [facility] (dipstick) panel - [id number] 00:00:00* Test Item Value Reference Range Interpretation Comme nts Specific gravity of Urine (test code = 2965-2) 1.007 1.003-1.030 pH of Urine (test code = 2756-5) 6.0 5.0-8.0 Protein [Presence] in Urine by Test strip (test code = 52511-4) negative negative Glucose [Presence] in Urine by Test strip (test code = 43247-8) negative negative Ketones [Presence] in Urine by Test strip (test code = 2514-8) negative negative Urobilinogen [Units/volume] in Urine by Test strip (test code = 79733-1) 0.2 mg/dL 0.2-1.0 Bilirubin.total [Presence] i n Urine by Test strip (test code = 5770-3) negative negative Hemoglobin [Presence] in Uri ne by Test strip (test code = 5794-3) negative negative Nitrite [Presence] in Urine by Test strip (test code = 5802-4) negative negative Crystals [type] in Urine sediment by Light microscopy (test code = 5782-8) none none Leukocytes [#/area] in Urine sediment by Microscopy high power field (test code = 5821-4) 0-4 0-4 Erythrocytes [#/area] in Uri ne sediment by Microscopy high power field (test code = 05642-4) none seen none seen RBC casts [Presence] in Urin e sediment by Light microscopy (test code = 29173-8) none seen 0-1 Hyaline casts [Presence] in Urine sediment by Light microscopy (test code = 28487-2) 0-4 0-4 Epithelial cells [Presence] in Urine sediment by Light microscopy (test code = 21775-1) none none-few Granular casts [Presence] in Urine sediment by Light microscopy (test code = 76596-4) none seen 0-1 Bacteria [Presence] in Urine sediment by Light microscopy (test code = 42558-4) none none-few Leukocyte esterase [Presence ] in Urine by Test strip (test code = 5799-2) negative negative Color of Urine (test code = 5778-6) yellow yellow, straw, laney Character of Urine (test cod e = 76341-1) clear clear [facility] (dipstick) panel - [id number] 00:00:00* Test Item Value Reference Range Interpretation Comme nts Specific gravity of Urine (test code = 2965-2) 1.007 1.003-1.030 pH of Urine (test code = 2756-5) 6.0 5.0-8.0 Protein [Presence] in Urine by Test strip (test code = 84942-9) negative negative Glucose [Presence] in Urine by Test strip (test code = 13281-3) negative negative Ketones [Presence] in Urine by Test strip (test code = 2514-8) negative negative Urobilinogen [Units/volume] in Urine by Test strip (test code = 94480-9) 0.2 mg/dL 0.2-1.0 Bilirubin.total [Presence] i n Urine by Test strip (test code = 5770-3) negative negative Hemoglobin [Presence] in Uri ne by Test strip (test code = 5794-3) negative negative Nitrite [Presence] in Urine by Test strip (test code = 5802-4) negative negative Crystals [type] in Urine sediment by Light microscopy (test code = 5782-8) none none Leukocytes [#/area] in Urine sediment by Microscopy high power field (test code = 5821-4) 0-4 0-4 Erythrocytes [#/area] in Uri ne sediment by Microscopy high power field (test code = 39179-0) none seen none seen RBC casts [Presence] in Urin e sediment by Light microscopy (test code = 36646-3) none seen 0-1 Hyaline casts [Presence] in Urine sediment by Light microscopy (test code = 90687-2) 0-4 0-4 Epithelial cells [Presence] in Urine sediment by Light microscopy (test code = 44897-8) none none-few Granular casts [Presence] in Urine sediment by Light microscopy (test code = 02177-8) none seen 0-1 Bacteria [Presence] in Urine sediment by Light microscopy (test code = 37831-2) none none-few Leukocyte esterase [Presence ] in Urine by Test strip (test code = 5799-2) negative negative Color of Urine (test code = 5778-6) yellow yellow, straw, laney Character of Urine (test cod e = 40912-9) clear clear [facility]dipstick[facility] panel - [id number] 11:33:40* Test Item Value Reference Range Interpretation Comme nts Leukocytes (test code = Leukocytes) Negative Nitrite (test code = Nitrite) negative Protein (test code = Protein) Negative pH (test code = pH) 5.0 Blood (test code = Blood) Negative Ketone (test code = Ketone) Negative Glucose (test code = Glucose) Negative Appearance (test code = Appearance) Clear Color (test code = Color) Pale Yellow [facility] (dipstick) panel - [id number] 11:33:40* Test Item Value Reference Range Interpretation Comme nts Leukocytes (test code = Leukocytes) Negative Nitrite (test code = Nitrite) negative Protein (test code = Protein) Negative pH (test code = pH) 5.0 Blood (test code = Blood) Negative Ketone (test code = Ketone) Negative Glucose (test code = Glucose) Negative Appearance (test code = Appearance) Clear Color (test code = Color) Pale Yellow [facility] (dipstick) panel - [id number] 11:33:40* Test Item Value Reference Range Interpretation Comme nts Leukocytes (test code = Leukocytes) Negative Nitrite (test code = Nitrite) negative Protein (test code = Protein) Negative pH (test code = pH) 5.0 Blood (test code = Blood) Negative Ketone (test code = Ketone) Negative Glucose (test code = Glucose) Negative Appearance (test code = Appearance) Clear Color (test code = Color) Pale Yellow [facility] Date/Time Note Provider Source 2024-01-01 09:58:17 xG77+TSv/NEPpeAoNdC8 yrZcaowyS5I/L Iw3PyyGUlLyzPvCoViGRQT6bdqEBwe514 13-01-11T09:58:17 Chief ComplaintPatient presents withFollow-upFollow up for blood presurePaula KATHERINE CampbellN 39538-7Lpent GznxTO2395-47-22F26:58:29Nurse NoteTXT1.2.840.738139.1.13.131.2. 7.2.468889|[id number] for patient mjtr96336-5Gttiw NoteLNNARRATIVEFormatted C-CDA narrative textThedaCare [facility]enah[address] [place], [place] [id number] KWLS4489-80-67M45:58:291.2.840.11 4350.1.72.3.15|1.2.840.146067.1.1 3.131.2.7.2.727879_[id number] [facility] 2023-11-18 15:45:34 v9BlcOdZAwI502lEzuHz /l+igksEJoSgc dkqJUbUyDtbX3Tw8GsE8l3UQjUHqQMl82 15-11-26T15:45:34 I independently reviewed the patient's x-rays and discussed the findings in detail during the office visit. 97855-6Qsbwlvgw wanbXZ2379-11-07R50:45:34Progress noteTXT1.2.840.662347.1.13.131.2. 7.2.970904|[id number] for patient weqs70796-5EntyUFFTGNBVUOMFmypego ed C-CDA narrative textThedaCare [facility]–Neenah[address] [place], [place] [id number] WLEN3860-00-09K85:45:341.2.840.11 4350.1.72.3.15|1.2.840.102263.1.1 3.131.2.7.2.727879_[id number] [facility] 2023-11-18 15:44:52 3xLOBv+bTxwhTRWiHDnO mvEeg3SPowsPy BCLPSJvPZqlLWVU4sKENQUY3f7+mVwe20 15-11-26T15:44:52 I independently reviewed the patient's x-rays and discussed the findings in detail during the office visit. 74595-7Vmcsemat unyzYD4004-75-19S20:44:52Progress noteTXT1.2.840.145125.1.13.131.2. 7.2.106196|[id number] for patient kgez53023-3CvyyHSOQKBCRTECKcthvgk ed C-CDA narrative [facility] [facility].[id number] CLDI4973-27-78O92:44:521.2.840.11 4350.1.72.3.15|1.2.840.595363.1.1 3.131.2.7.2.727879_[id number] [facility] 2023-11-18 13:05:20 fYSJJ1hHtblKzVLPaur+ fj+2n2yxDWz/s KYgpCIQLt38rap5Uz8aWRDLH6JoHWH+20 15-11-26T13:05:20 Chief ComplaintPatient presents withIngrowing NailPatient comes in today for right great toe ingrown toenail.Rupali Melendrez 97099-0Gugxs UtpfRY2391-21-82X84:01:14Nurse NoteTXT1.2.840.451738.1.13.131.2. 7.2.482133|[id number] for patient gkqw42195-5Jyowe NoteLNNARRATIVEFormatted C-CDA narrative [id number] L Harvey [facility] [facility].[id number] MSGF6696-71-24B80:01:141.2.840.11 4350.1.72.3.15|1.2.840.520179.1.1 3.131.2.7.2.727879_[id number] Rupali Melendrez [facility] 2023-04-28 14:35:00 KD34wduXlmEmONr62GvO t0PewcFjmK5lz UvYdg51yERFWvPzIJDFmAclzoQ1Kpfp23 14-05-074:35:00 Contacted patient. Patient advised that given her age and hysterectomy status she does not need further pap smears. Patient verbalized understanding. Magen Forbes RN 04/28/2023 2:35 PM 01366-2Gbzjrhipz encounter CdrjWB8552-56-69Z33:35:48Telephon e encounter NoteTXT1.2.840.041738.1.13.104.2. 7.2.692394|[id number] for patient ifiw73892-3KsytBH595460378Friczkw Collins RNUTMBUT - [address] StreetGefwApicpjgdsLafzqtybcHCJC5652048 126ULLCUWQRVNDMDEQLPTUQVW6263-24- 07T14:35:481.2.840.374955.1.72.3. 15|1.2.840.715194.1.13.104.2.7.2. 727879_[id number] Magen Forbes RAUL [place] 2023-04-28 14:16:34 KuXhw8KStmiU4cDKhRYd CLm3fV9jKYGvd 4PEoUOUlY5cSEKHQ8PmRr6AzXm+38HH20 14-05-07T14:16:34 Medical records reviewed.Pap from 04/23/22 shows ASCUS wit HPV negative.MMG 11/21/22 Benign.Given age and previous hysterectomy, no need for further pap. 79428-6Yfnmetqap encounter FskwBL6010-70-76B52:19:05Telephon e encounter NoteTXT1.2.840.935205.1.13.104.2. 7.2.994874|[id number] for patient zfqg41716-8PsibCIBXHMWAOA[address]vdG[id number] 927FQKGWIFXBEQAYPQQHDSEEB4807-98- 07T14:19:051.2.840.510806.1.72.3. 15|1.2.840.138395.1.13.104.2.7.2. 727879_[id number] [place] 2023-04-25 12:26:38 1aFnYCKYl3AC8IzCuGuq M22ERzolESzsA UeKp3Fns0RLjZKR4+I+f1DW9wFlm9+V20 14-05-04T12:26:38 Medical records from [facility] 72972-5Hrwylabdt encounter HdxgRC8475-51-60W88:30:02Telephon e encounter NoteTXT1.2.840.031533.1.13.104.2. 7.2.400262|[id number] for patient lbob84573-0ZhrjSX05006492Ubmc [id number] 204RFNEWTRFFLWFWRVHOAAURW8160-14- 04T12:30:021.2.840.222538.1.72.3. 15|1.2.840.015245.1.13.104.2.7.2. 727879_[id number] [facility]22 09:34:17 HGNN4h/cBma1doWTvBbY 5Qlx4XHPPTN+d s4IrxUvv1rgHfQ6oj2kbV36rhrxiMDr03 14-05-01T09:34:17 Name and verified. Pt stated she left information to send for medical records. Advised pt that we do did not receive records or have a medical release in chart. Pt will come by office to sign.CHASIDY LORD RN 04/22/2023 9:35 AM 13668-0Tbmycingu encounter IcxgTI4084-69-15G53:35:35Telephon e encounter NoteTXT1.2.840.636994.1.13.104.2. 7.2.625181|[id number] for patient avcd37789-0PqhqFE205476958Vthjfwz th G Cervantes [id number] 837ZRFKVVQNQYBSPQWUOFCCHK9730-91- 01T09:35:351.2.840.310228.1.72.3. 15|1.2.840.583579.1.13.104.2.7.2. 727879_[id number] Chasidy Lord [facility] 2023-04-21 08:59:43 pyYxyvcz3LXd7hj564F8 ogX7sH40Ae0x8 lsBD+U0LgWuxt6L0bbsXvTVo59cGV8N37 13-04-31T08:59:43 Pt called and states that she was supposed to received a call back from a nurse. Clinic was supposed to call [facility] to obtain records. She is wanting to speak with a nurse to discuss if she needs a follow up appointment. Call back number: [phone] signed by Treasure Mejia at 04/21/2023 9:03 AM ASO22185-4Qwfonbsoq encounter MhqgVX4023-46-08X13:03:29Telephon e encounter NoteTXT1.2.840.168463.1.13.104.2. 7.2.129790|[id number] for patient sdno50889-8JrxiTC03636920Rwgisgt R [address] IrftDqrzhkbotSczjkgeygLWYG6590765 106OGNCJZLOTYRRBZPHMWYDCG3148-73- 31T09:03:291.2.840.694763.1.72.3. 15|1.2.840.394599.1.13.104.2.7.2. 727879_[id number] Treasure Mejia [place] 2022-05-02 09:17:00 [id number] DvspOXUWScMlJ +nqRpjy7C0sbhbYufIlgwXcH1EL6vPwLB h/QX5gyJhAJjEo2204-18-89R57:17:00 [facility] ([facility])Gynecology Post Prog NoteREPORT#:[id number] REPORT STATUS: SignedDATE:05/02/22 TIME: 916 PATIENT: CHANEL MOISE UNIT #: [id number]#: [id number] [address] AGE: 76 SEX: F ATTEND: Debbi Manzo [facility] AUTHOR: Debbi Manzo MD * ALL edits or amendments must be made on the electronic/computer document * SubjectivePatient reports:Yes: flatus/bowel movement, pain controlled, tolerating diet. No: complaints, abdominal pain, ambulating, chills, fever, headache, heartburn, nausea, pelvic pain, vaginal bleeding, voiding/urinating, vomiting. Objective GeneralVS/I O:Last Documented: Result Date Time Pulse Ox 100 05/02 842 B/P 137/66 05/02 842 B/P Mean 89.7 05/02 842 O2 Delivery Room air 05/02 842 Temp 36.7 05/02 842 Pulse 66 05/02 842 Resp 14 05/02 842 O2 Flow Rate 2 05/02 0139 24 hour I O ending at 0700: 05/02 0700 05/01 1900 Intake Total 1100.00 Output Total 1600 Balance -500.00 Intake, IV 1100.00 Output, Urine 1600 Patient 73 kg Weight Weight Stated/Reported Measurement Method PATIENT WEIGHT: Weight (lb): 160Weight (oz): 15Weight (kg): 73.000 Physical ExamGeneral appearance: alert, awake, orientedWound/incision: Location:C/D/I Site condition: dressing clean dryCardiovascular: normal heart sounds, regular rate rhythmRespiratory: aerating well, clear to auscultation, symmetric expansion, no distress, no tendernessAbdomen: normal bowel sounds, non-tender, softExtremities: full range of motion, moves all, no calf tendernessNeuro/ASTHMA EDUCATOR: alert, oriented X 3, normal speechGenitourinary: urinary catheter (voiding trial)Vagina: abnormal (vag pk scant blood) Current MedicationsMedications:Active Meds + DC'd Last 24 HrsTramadol HCl (ULTRAM) 50 MG Q6H PRN PRN PO (UNV) Amlodipine Besylate (NORVASC) 2.5 MG DAILY PO Carvedilol (COREG) 25 MG DAILY PO Docusate Sodium (COLACE) 100 MG BID PO Atorvastatin Calcium (LIPITOR) 10 MG BEDTIME PO Cholestyramine Resin (QUESTRAN LIGHT) 1 PKT BID PO (CKD) Docusate Sodium (COLACE) 100 MG Q12HR PO Gabapentin (NEURONTIN) 300 MG BEDTIME PO Gabapentin (NEURONTIN) 100 MG BID PO Acetaminophen (OFIRMEV 10MG/ML) 100 ML Q6H IV (DC) Acetaminophen (TYLENOL EXTRA STRENGTH) 1,000 MG Q6HR PO Simethicone (MYLANTA GAS) 80 MG AC HS PO Diphenhydramine HCl (BENADRYL) 25 MG Q6H PRN PRN PO Lactated Ringer's (LACTATED RINGERS) 1,000 ML .Q8H20M IV (DC) Morphine Sulfate (morphine 30MG/NS 30ML SYR) PER PROTOCOL ASDIR IV Naloxone HCl (NARCAN) 0.04 MG ASDIR PRN IV Naloxone HCl (NARCAN) 0.04 MG ASDIR PRN IV Ondansetron HCl (ZOFRAN) 4 MG PACU ONCE ONE IV (DC) Ondansetron HCl (ZOFRAN) 4 MG Q4H PRN PRN IV Sodium Chloride (0.45% Sodium Chloride) 1,000 ML Q24H PRN PRN IV Sodium Chloride (0.45% Sodium Chloride) 1,000 ML Q24H PRN PRN IV Ketamine HCl (KETAMINE 500MG/10ML) 0 .STK-MED ONE .ROUTE (DC) Ephedrine Sulfate (ePHEDrine sulfate) 0 .STK-MED ONE .ROUTE (DC) Cefazolin Sodium (KEFZOL OR ANCEF) 0 .STK-MED ONE .ROUTE (DC) Phenazopyridine HCl (PYRIDIUM) 0 .STK-MED ONE .ROUTE (DC) Fentanyl Citrate (SUBLIMAZE) 100 MCG PACU Q10MIN PRN PRN IV (DC) Fentanyl Citrate (SUBLIMAZE) 50 MCG PACU Q10MIN PRN PRN IV (DC) Hydralazine HCl (APRESOLINE) 2 MG PACU Q10MIN PRN PRN IV (DC) Hydrocodone Bitart/Acetaminophen (NORCO 5/325) 1 TAB PACU ONCE PO (DC) Hydromorphone HCl (DILAUDID) 1 MG PACU Q10MIN PRN PRN IV (DC) Hydromorphone HCl (DILAUDID) 0.5 MG PACU Q5MIN PRN PRN IV (DC) Insulin Human Lispro (HUMALOG) 0 PACU ONCE PRN SUBQ (DC) Labetalol HCl (LABETALOL HCL) 5 MG PACU Q10MIN PRN PRN IV (DC) Meperidine HCl (DEMEROL 50MG/ML) 12.5 MG PACU ONCE PRN IV (DC) Morphine Sulfate (morphine SULFATE) 2 MG PACU Q10MIN PRN PRN IV (DC) Ondansetron HCl (ZOFRAN) 4 MG PACU ONCE PRN IV (DC) Phenazopyridine HCl (PYRIDIUM) 100 MG ONCE ONE PO (DC) Ropivacaine (NAROPIN 0.5% 150 MG/30mL) 150 MG ASDIR PRN LOCAL (DC) Fentanyl Citrate (SUBLIMAZE) 0 .STK-MED ONE .ROUTE (DC) Lidocaine HCl (XYLOCAINE) 0 .STK-MED ONE .ROUTE (DC) Midazolam HCl (VERSED) 0 .STK-MED ONE .ROUTE (DC) Propofol (DIPRIVAN 200MG/20ML INJECTION) 20 ML .STK-MED ONE IV (DC) Rocuronium [place] (ZEMURON) 0 .STK-MED ONE IV (DC) Gabapentin (NEURONTIN) 0 .STK-MED ONE .ROUTE (DC) Acetaminophen (TYLENOL EXTRA STRENGTH) 0 .STK-MED ONE .ROUTE (DC) Cefazolin Sodium (KEFZOL OR ANCEF) 0 .STK-MED ONE .ROUTE (DC) Sodium Chloride (SODIUM CHLORIDE) 10 ML .STK-MED ONE IV (DC) Bupivacaine HCl/Epinephrine Bitart (Sensorcaine 0.25% /Epi 1:427319) 0 .STK-MED ONE LOCAL (DC) Gentamicin Sulfate (GARAMYCIN) 0 .STK-MED ONE .ROUTE (DC) Lidocaine HCl (LIDOCAINE HCL/PF) 0 .STK-MED ONE .ROUTE (DC) Cefazolin Sodium (KEFZOL OR ANCEF) 1 GM PREOP ONCALL IV (DC) Sodium Chloride (SODIUM CHLORIDE) 10 MLAcetaminophen (TYLENOL EXTRA STRENGTH) 1,000 MG PREOP ONCALL PO (DC) Gabapentin (NEURONTIN) 200 MG PREOP ONCALL PO (DC) Lactated Ringer's (LACTATED RINGERS) 1,000 ML PREOP ONCALL IV (DC) Lidocaine HCl (LIDOCAINE HCL/PF) 2 ML PREOP ONCALL LOCAL (DC) Lidocaine HCl (LIDOCAINE HCL/PF) 2 ML PREOP ONCALL LOCAL (DC) Sodium Chloride (SODIUM CHLORIDE 0.9%) 500 ML PREOP ONCALL IV (DC) Sodium Chloride (SODIUM CHLORIDE 0.9%) 500 ML PREOP ONCALL IV (DC) Sodium Chloride (SODIUM CHLORIDE 0.9%) 1,000 ML PREOP ONCALL IV (DC) Sodium Chloride (SODIUM CHLORIDE) 5 ML ASDIR PRN IV Sodium Chloride (SODIUM CHLORIDE) 10 ML ASDIR PRN IV Sodium Chloride (SODIUM CHLORIDE 0.9%) 250 ML ASDIR PRN IV (DC) ResultsFindings/Data:Laboratory Tests 05/02 0335 Hematology WBC (4.5 - 11.0 x10 3/uL) 9.3 RBC (3.54 - 5.02 x10 6/uL) 4.22 Hgb (11.0 - 15.0 g/dL) 12.9 Hct (33.0 - 45.0 %) 38.9 MCV (81.0 - 99.0 fL) 92.2 MCH (27.0 - 33.0 pg) 30.6 MCHC (33.0 - 37.0 g/dL) 33.2 RDW (11.5 - 14.5 %) 12.2 Plt Count (150 - 400 x10 3/uL) 178 MPV (7.0 - 9.0 fL) 12.9 H Neut % (Auto) (56.0 - 77.0 %) 89.2 H Lymph % (Auto) (14.0 - 32.0 %) 8.1 L [place] % (Auto) (4.8 - 9.0 %) 2.3 L Eos % (Auto) (0.3 - 3.7 %) 0.0 L Baso % (Auto) (0.0 - 2.0 %) 0.1 Neut # (Auto) (2.0 - 7.6 x10 3/uL) 8.31 H Lymph # (Auto) (1.0 - 3.8 x10 3/uL) 0.75 L [place] # (Auto) (0.1 - 0.8 x10 3/uL) 0.21 Eos # (Auto) (0.0 - 0.2 x10 3/uL) 0.00 Baso # (Auto) (0.0 - 0.2 x10 3/uL) 0.01 Abs Immat Gran (auto) (0.00 - 0.03 x10 3/uL) 0.03 Add Manual Diff NO Immature Gran % (0.0 - 2.0 %) 0.3 Nucleated RBC % (0 - 0 %) 0.0 Nucleated RBCs # (Man) (0.0 - 0.1 x10 3/uL) 0.00 Diagnosis, Assessment PlanFree Text A P:POD #1 s/p L/S USLS/cysto/PC/PNvoiding trialambulatesitz bathpo pain medsd/c home if doing well at 0922 RPT #:[id number] OF REPORTPRProgress fdyc1530-67-40C75:17:00G.HMMM3368 0811-0372AVAvailable for patient hbmcWRSQNLIFVTOWWQ5735-33-14A78:2 2:53 [facility] 2022-05-01 19:36:00 [id number]/b6QdS L5Aoo95bTmjvh oaY2TpTXm1Ipe4Z/D+/mAOmZvL9ZnTxNy vBxO6J29RY0783-87-98B17:36:130360 -[address] [address] PATIENT NAME: CHANEL MOISE ADMIT DATE: 05/01/22ACCOUNT NO: [id number] ROOM NO: [facility] AGE: 76 REPORT TYPE: OPERATIVE REPORT SEX: F ADMITTING PHYSICIAN:Debbi Manzo MD ATTENDING PHYSICIAN:Debbi Manzo MD OPERATION DATE: 05/01/2022 PREOPERATIVE DIAGNOSES: 1. Post-hysterectomy vaginal vault prolapse. 2. Cystocele. 3. Rectocele. 4. Enterocele. 5. Stress urinary incontinence. POSTOPERATIVE DIAGNOSES: 1. Post-hysterectomy vaginal vault prolapse. 2. Cystocele. 3. Rectocele. 4. Enterocele. 5. Stress urinary incontinence. PROCEDURES PERFORMED: 1. Laparoscopic colpopexy (uterosacral ligament suspension). 2. Cystoscopy. 3. Posterior colporrhaphy. SURGEON: Debbi Manzo MD PUTAWAY DRIVER: GAYLA Angel ANESTHESIA: General anesthesia. ESTIMATED BLOOD LOSS: Less than 50 mL. COMPLICATIONS: None. DESCRIPTION OF PROCEDURE: The patient was taken to the operating room where shewas given general anesthesia. She was placed in low lithotomy position withAllen stirrups and prepped and draped in usual sterile fashion. A catheter wasplaced inside her bladder, draining clear urine. An infraumbilical skinincision was made with the scalpel. The fascia was identified, incised, andretracted laterally with stay sutures of 0 Vicryl. The peritoneum was enteredbluntly. Blunt trocar and sleeve were passed into the incision and secured withstay sutures of 0 Vicryl. Additional ports placed under direct visualizationincluded two lateral 10-mm ports and one suprapubic 5 mm port. Examinationunder anesthesia demonstrated the liver to be normal to appearance. Gallbladderwas not visualized. There were adhesions in bilateral pelvic sidewalls. Theovaries were not visualized. The uterus was absent. PATIENT NAME: CHANEL MOISE Laparoscopic colpopexy was performed. Each uterosacral ligament was identifiedwith sharp dissection. The ureter was noted to be free and clear from thedissection. A relaxing incision was placed between the ureter and theuterosacral ligament bilaterally. The rectovaginal septum was entered. Thisexposed the posterior endopelvic fascia. The relaxing incision was made lateralto each uterosacral ligament and medial to each ureter. The bladder wasreflected off the anterior wall of the vagina. However, there was a separationof the fascia at the apex of the vagina and interrupted suture of 2-0 PDS wasused to reapproximate the fascia. Suture of 0 Rison-Jameson was placed in a runningfashion along each uterosacral ligament. Sutures were initiated through theupper third of the uterosacral ligament. A portion of the ligament was taken inthe middle and lower third. Sutures were secured to the posterior endopelvicfascia and then anterior endopelvic fascia. Sutures were placed in the mannerdescribed above. Both sutures were tied down resulting in resuspension of theapex of the vagina. Laparoscopic enterocele repair was performed. Suture of 0Gore-Jameson was placed in a lateral fashion reefing the peritoneum, the posteriorwall of vagina and then secured to the posterior and then anterior endopelvicfascia. Lateral sutures were initiated through the mid portion of theuterosacral ligament, posterior and then anterior endopelvic fascia. A thirdsuture was run along the midline. Three sutures were tied down obliterating theposterior cul-de-sac. Examination under anesthesia demonstrated the absence ofparavaginal defect. There was good apical support. A paravaginal defect repairwas not indicated. Abdomen was closed. Lateral ports were removed. Fascia wasclosed with inlet device of 0 Vicryl. Umbilical and suprapubic port sites wereremoved. Fascia was closed with 0 Vicryl. Skin incisions were closed with 4-0Monocryl and covered with Dermabond. Cystoscopy performed revealed no evidenceof urethral, ureteral, or bladder injury. No masses, lesions, or foreign bodieswere seen within the bladder. The patient was given Pyridium prior to theprocedure. The patient demonstrated vigorous efflux of Pyridium-stained urinefrom each ureteral orifice. Cystoscope was removed and the Ovalle catheter wasreplaced. The posterior colporrhaphy was performed. The posterolateral edgesof the hymenal ring were grasped with Allis clamps. Allis clamps were placedover the perineal body and a final clamp was placed cephalad to the rectocele. Area between the clamps was infiltrated with 0.25% Marcaine with epinephrine. Amidline incision was made over the perineal body and the epithelium was incised. Vaginal epithelium was undermined in the midline cephalad to the rectocele. Epithelium was cut in the midline and retracted laterally. Lateral dissectionwas carried out to the pelvic sidewall. Rectovaginal examination demonstratedseparation of the fascia from the perineal body. Fascia was reattached toperineal body with interrupted sutures of 2-0 PDS. Vaginal epithelium was nottrimmed. Sutures were carried over the perineal body to complete the closure ofthe incision. There was no evidence of rectocele identified on rectal exam. Vaginal exam revealed normal depth and caliber of the vagina. No suture orforeign bodies were within the rectum. The patient tolerated the procedurewell. Instrument counts were correct. The patient was taken to recovery room,extubated in good condition. Dictated By: Debbi Manzo MD WT: OP:G.CLEMENTINA/HEAVENI/NTSDD: 05/01/2022 19:36:07DT: 05/01/2022 21:21:07[id number] [id number] PATIENT NAME: CHANEL MOISE Authenticated by Debbi Manzo MD On 06/05/2022 01:08:47 PM at 0108 PATIENT NAME: CHANEL MOISE nguqox2269-04-34H59:21:00G.KAE761 [id number] for patient uupuKSFCZQQBYRMZKU3683-95-60D59:0 9:30 [facility] 2022-05-01 08:35:00 [id number]+UYU 0u6ORz3G+gYfZ i5t8096ELhDua8G0fODIylLTsr7JmYi/q ehyHr1CHHST0Sy2120-34-44Q15:35:00 [id number] [place] [address] PATIENT NAME: CHANEL MOISE ADMIT DATE: 05/01/22ACCOUNT NO: [id number] ROOM NO: AGE: 76 REPORT TYPE: HISTORY AND PHYSICAL SEX: F ADMITTING PHYSICIAN: ATTENDING PHYSICIAN:Debbi Manzo MD ADMISSION DATE: 05/01/2022 DATE OF PROCEDURE: 05/01/2022. HISTORY OF PRESENT ILLNESS: Chanel Moise is a 76-year-old G6, P6 female withcomplaints of vaginal bulge that is felt and seen. She reports splinting withbowel movements. She has stress incontinence. She reports urge incontinence. She has frequency and urgency. She denies dysuria. She reports nocturia 3times at night and she reports postvoid fullness. She underwent a completeevaluation, which included urodynamic testing, which demonstrated very mildstress urinary incontinence. During her post evaluation consultation, herdiagnoses of pelvic organ prolapse, stress urinary incontinence, and overactivebladder were discussed. Her treatment options included observation, medicaltherapy, and surgery. She is aware of the risks, benefits, and alternativesassociated with surgery. She understands morbidity and mortality as well. Shehas elected to proceed with surgery. PAST MEDICAL HISTORY: Significant for high blood pressure and back pain. PAST SURGICAL HISTORY: Total abdominal hysterectomy, unilateralsalpingo-oophorectomy, laparoscopic gallbladder, left knee surgery, right wristsurgery, left inguinal hernia repair and hiatal hernia repair. PAST OBSTETRICAL HISTORY: Spontaneous vaginal delivery x5, forceps-assistedvaginal delivery x1. PAST GYNECOLOGIC HISTORY: Last Pap in 2021 with ASCUS. Past mammogram in 2020within normal limits. MEDICATIONS: Include cholestyramine, candesartan, amlodipine, carvedilol,fluticasone, and gabapentin. ALLERGIES: CODEINE WHICH CAUSES NAUSEA AND VOMITING, ALEVE WHICH CAUSESHYPERTENSION. HOWEVER, THE PATIENT REPORTS IT IS OKAY FOR HER TO TAKE ADVIL. SOCIAL HISTORY: No tobacco, alcohol, or drug use. She is . Her husbandwill be at the surgery, it is okay to discuss surgery with him. FAMILY HISTORY: Significant for heart disease, breast cancer, ovarian cancer,and tuberculosis. REVIEW OF SYSTEMS: The patient denies chest pain, shortness of breath,lightheadedness, or dizziness. PATIENT NAME: CHANEL MOISE PHYSICAL EXAMINATION:VITAL SIGNS: Blood pressure 123/71, pulse 66, and respirations 12. Height 5feet 0 inches and weight 160 pounds.GENERAL: No acute distress.SKIN: Warm and dry.HEAD AND NECK: No thyromegaly. No lymphadenopathy.LUNGS: Clear to auscultation bilaterally.CARDIOVASCULAR: Regular rate and rhythm.ABDOMEN: Positive bowel sounds. Soft, nontender, and nondistended.GENITOURINARY: Moderate cystocele, moderate rectocele, moderate enterocele, andmoderate vault prolapse. No abnormalities of the vulva, vagina, urethra,bladder, cervix. Uterus and adnexa are surgically absent.RECTAL: Within normal limits. Hemoccults not indicated. URODYNAMIC TESTING: Q-tip test with resting angle of 0 degrees and strainingangle 30 degrees. Postvoid residual volume 36 mL. Genuine stress incontinencewith a leak point pressure of 47. No detrusor instability. Normal void. Normal compliance. IMPRESSION AND PLAN:1. Pelvic organ prolapse. The patient will undergo a laparoscopic uterosacralligament suspension, cystoscopy, and posterior colporrhaphy.2. Stress urinary incontinence. The patient will forego the no-tension slingdue to her ASCUS Pap smear. She will complete the evaluation and reconsider atfollowup if the urinary incontinence is bothersome. Dictated By: Debbi Manzo MD WT: PREOPHP:JACLYN/SHANA/NTSDD: 05/01/2022 08:35:08DT: 05/01/2022 11:23:05Conf#: [id number]/DID#: [id number] by Debbi Manzo MD On 05/01/2022 04:16:48 PM at 0416 PATIENT NAME: CHANEL MOISE and physical mkeuxhbpjxc1356-87-13X91:23:00G.H [id number] for patient hmzxSGBESCJKJSYPEB3209-90-34L73:1 7:24 [facility] 2022-04-26 09:22:00 [id number] F2vLWbM/foUZ+ eYUe7B2gYV1uNUnEsWMjcunFd/yR3ylNo q3yjij/h/UEjHS7770-12-97C73:22:00 1216-1048 [place] [id number] PATIENT NAME: CHANEL MOISE ADMIT DATE: ACCOUNT NO: [id number] ROOM NO: AGE: 76 REPORT TYPE: eELECTROCARDIOGRAM REPORT SEX: F ADMITTING PHYSICIAN: ATTENDING PHYSICIAN:Debbi Manzo MD Order:[id number] Reason : PRE OP Test Date/Time Stamp:FriApr 26 2022 09:22:31Blood Pressure : / mmHGVent. Rate : 055 BPM Atrial Rate : 055 BPM P-R Int : 186 ms QRS Dur : 068 ms QT Int : 422 ms P-R-T Axes : 074 065 074 degrees QTc Int : 403 ms Sinus bradycardia Confirmed by KRISTIN CARREON ([id number]) on 04/26/2022 11:16:32 AM Referred By: Debbi Manzo Confirmed by:KRISTIN CARREON at 1116 PATIENT NAME: CHANEL MOISE . [id number] for patient kbqeLLRCDYVFAUTCSS6817-12-27S25:1 6:53 HCACL"
[2024-01-05 14:51] LABS: Absolute Basophils 0.1 K/uL (0-0.5); Absolute Eosinophils 0.1 K/uL (0-0.5); Absolute Lymphocytes (CBC) 2.2 K/uL (0.7-4.9); Absolute Neutrophil 5.6 K/uL (1.8-8.0); Eosinophils % 1.6 % (0-4.4); Hematocrit 37.2 % (36.0-45.0); Hemoglobin 12.6 g/dL (12.0-15.0); Lymphocytes % 24.1 % (15.3-44.8); MCH 30.8 pg (27.0-35.0); MCV 90.8 fL (80-100); MPV 9.5 fL (7.6-11.3); Monocytes % 10.8 % (3.3-12.3); Neutrophils % 62.5 % (41.7-73.7); Nucleated Red Blood Cells % 0.1 % (0-0); Platelets 235 thou/uL (152-406); Red Cell Distribution Width 13.7 % (12.1-15.2)
--- NOTE | 2024-01-05 14:55 | RAD REPORT ---
EXAM DESCRIPTION: CT - C Spine Wo Con - 01/05/2024 2:29 pm CLINICAL HISTORY: Pain COMPARISON: None. TECHNIQUE: Axial thin cut noncontrast CT images of the cervical spine were obtained with sagittal an d coronal reconstruction images generated and reviewed. All CT scans are performed using dose optimization technique as appropriate and may include automated exposure control or mA/KV adjustment according to patient size. FINDINGS: Cervical body height and alignment are normal. Straightening of normal cervical lordosis, could be positional or secondary to muscle spasm. Variable degrees of disc height loss, most pronounced at C5-6. Endplate remodeling and facet arthropa thy contribute to [id number] degrees of neural foraminal narrowing, most notably on the right a t C5-6 and on the left at C6-7. No bony central canal stenosis. No fracture or acute bony abnormality. No paraspinal mass or hematoma. IMPRESSION: No acute osseous abnormality of the cervical spine. Degenerative changes as above.
--- NOTE | 2024-01-05 14:56 | RAD REPORT ---
EXAM DESCRIPTION: Soni Single View01/05/2024 2:34 pm CLINICAL HISTORY: CHEST PAIN COMPARISON: Chest Pa And Lat (2 Views) dated 10/07/2018; CHEST PA AND LAT 2 VIEW dated 02/27/2011; CHES T PA AND LAT 2 VIEW dated 07/24/2006 TECHNIQUE: Portable AP view of the chest. FINDINGS: The lungs are clear. No pneumothorax or effusion. The cardiomediastinal contours are unre markable. IMPRESSION: No acute cardiopulmonary process.
[2024-01-05 15:06] LABS: Albumin 3.4 g/dL (3.4-5.0); Albumin/Globulin Ratio 0.9 (1.1-1.8); Anion Gap 9.4 mEq/L (5.0-15.0); Bilirubin Direct 0.1 mg/dL (0-0.2); Bilirubin Indirect, Calculated 0.5 mg/dL (0.2-0.8); Bilirubin Total 0.6 mg/dL (0.2-1.0); Globulin 3.9 g/dL (2.3-3.5); Potassium 3.4 mEq/L (3.5-5.1); Protein, Total 7.3 g/dL (6.4-8.2); Troponin High Sensitivity 14.8 pg/mL (<58.9)
--- NOTE | 2024-01-05 16:27 | RAD REPORT ---
EXAM DESCRIPTION: US - CP - 01/05/2024 3:50 pm CLINICAL HISTORY: PAIN COMPARISON: C Spine Wo Con dated 01/05/2024 TECHNIQUE: Real-time sonographic grayscale, color duplex, and spectral wave Doppler evaluation of aysha th carotid systems was performed. FINDINGS: Normal high resistance waveforms are noted in both external carotid arteries. The common c arotid arteries and internal carotid arteries show normal low resistance waveforms. Mild bilateral calcific plaque formation is seen at the carotid bulbs. Peak systolic velocity less t doran 125 cm/ sec bilaterally, except along the distal right ICA where peak systolic velocity is elevat ed ; 149 cm/sec. ICA/CCA peak systolic ratios 2.08 on the right and 1.6 on the left. Antegrade flow seen in both vertebral arteries. IMPRESSION: Mild atherosclerotic changes noted. Elevated distal right ICA peak systolic velocity amounting to 50-69% stenosis. Less than 50% stenosis along the left ICA. Evaluation of carotid artery stenosis, if any, is reported based on consensus recommendations of the Society of Radiologists in Ultrasound (Ant et al., Radiology, 2003)
--- NOTE | 2024-01-05 16:40 | ER ---
Nurse's Notes [facility] Name: Chanel Will Age: 78 yrs Sex: Female : 1945 Arrival Date: 01/05/2024 Time: 13:49 Bed 19 Private MD: Diagnosis: Chest pain, unspecified Presentation: 01/04 13:55 Chief complaint: Patient states: Chest, neck, left arm pain, onset 5 days, gotten nj1 worse. Worse with movement. Coronavirus screen: Vaccine status: Patient reports receiving the 2nd dose of the covid vaccine. Ebola Screen: Patient denies travel to an Ebola-affected area in the 21 days before illness onset. Initial Sepsis Screen: Does the patient meet any 2 criteria? No. Patient's initial sepsis screen is negative. Does the patient have a suspected source of infection? No. Patient's initial sepsis screen is negative. Risk Assessment: Do you want to hurt yourself or someone else? Patient reports no desire to harm self or others. Onset of symptoms was December 2023. 13:55 Method Of Arrival: Ambulatory [facility] 13:55 Acuity: KYLAH 3 nj1 Triage Assessment: 13:58 General: Appears in no apparent distress. uncomfortable, Behavior is calm, cooperative, nj1 appropriate for age. Pain:. Historical: - Allergies: 13:57 Aleve; nj1 13:57 Codeine; nj1 13:58 tramadol; nj1 13:58 Naproxen; nj1 - PMHx: 13:57 Arthritis; carpal tunnel; Hernia; Hyperlipidemia; Hypertension; nj1 - Immunization history:: Client reports receiving the 2nd dose of the Covid vaccine. - Infectious Disease History:: Denies. - Social history:: Smoking status: Patient denies any tobacco usage or history of. - Family history:: not pertinent. - Hospitalizations: : No recent hospitalization is reported. Screenin:45 [facility] ED Fall Risk Assessment (Adult) History of falling in the last 3 months, db including since admission No falls in past 3 months (0 pts) Confusion or Disorientation No (0 pts) Intoxicated or Sedated No (0 pts) Impaired Gait No (0 pts) Mobility Assist Device Used No (0 pt) Altered Elimination No (0 pt) Score/Fall Risk Level 0 - 2 = Low Risk Oriented to surroundings, Maintained a safe environment. Abuse screen: Denies threats or abuse. Denies injuries from another. Nutritional screening: No deficits noted. Tuberculosis screening: No symptoms or risk factors identified. Assessment: 14:55 Reassessment: Patient appears in no apparent distress at this time. Patient and/or db family updated on plan of care and expected duration. Pain level reassessed. Patient is alert, oriented x 3, equal unlabored respirations, skin warm/dry/pink. General: Appears in no apparent distress. comfortable, Behavior is calm, cooperative. Pain: Complains of pain in chest and left arm Pain radiates to left arm. Pain: Pain began gradually. Neuro: Level of Consciousness is awake, alert, obeys commands, Oriented to person, place, time, situation. Cardiovascular: Capillary refill < 3 seconds Patient's skin is warm and dry. Respiratory: Airway is patent Respiratory effort is even, unlabored, Respiratory pattern is regular, symmetrical. 16:50 Reassessment: Patient appears in no apparent distress at this time. Patient and/or db family updated on plan of care and expected duration. Pain level reassessed. Patient is alert, oriented x 3, equal unlabored respirations, skin warm/dry/pink. General: Appears in no apparent distress. comfortable, Behavior is calm, cooperative. Neuro: Level of Consciousness is awake, alert, obeys commands, Oriented to person, place, time, situation. 17:30 Reassessment: Patient appears in no apparent distress at this time. Patient and/or db family updated on plan of care and expected duration. Pain level reassessed. Patient is alert, oriented x 3, equal unlabored respirations, skin warm/dry/pink. Patient states feeling better. 18:30 Reassessment: Patient appears in no apparent distress at this time. Patient and/or db family updated on plan of care and expected duration. Pain level reassessed. Patient is alert, oriented x 3, equal unlabored respirations, skin warm/dry/pink. General: Appears in no apparent distress. comfortable, Behavior is calm, cooperative. 19:00 General: Appears in no apparent distress. comfortable, Behavior is calm, cooperative. jw7 19:00 Pain: Complains of pain in back and chest Pain does not radiate. Pain currently is 4 jw7 out of 10 on a pain scale. Quality of pain is described as throbbing, Pain began suddenly, Is continuous. Neuro: Level of Consciousness is awake, alert, obeys commands, Oriented to person, place, time, situation. Cardiovascular: Heart tones S1 S2 present Capillary refill < 3 seconds Clubbing of nail beds is absent JVD is absent Patient's skin is warm and dry. Respiratory: Airway is patent Trachea midline Respiratory effort is even, unlabored, Respiratory pattern is regular, symmetrical, Breath sounds are clear bilaterally. GI: Abdomen is flat, non-distended, Bowel sounds present X 4 quads. Abd is soft and non tender X 4 quads. : No deficits noted. No signs and/or symptoms were reported regarding the genitourinary system. EENT: No deficits noted. No signs and/or symptoms were reported regarding the EENT system. Derm: Skin is intact, is healthy with good turgor, Skin is dry, Skin is normal, Skin temperature is warm. Musculoskeletal: Circulation, motion, and sensation intact. Range of motion: intact in all extremities. 19:00 General: Pt Admitted see [facility] for charting and vital signs. . jw7 Vital Signs: 13:55 BP 153 / 76; Pulse 76; Resp 16; Temp 98.4(O); Pulse Ox 98% ; Weight 72.57 kg; Height 5 nj1 ft. 2 in. ; Pain 8/10; 14:45 BP 152 / 61; Pulse 67; Resp 18; Pulse Ox 98% on R/A; db 15:30 BP 160 / 60; Pulse 66; Resp 16; Pulse Ox 97% on R/A; db 16:00 BP 161 / 60; Pulse 60; Resp 14; Pulse Ox 99% on R/A; db 16:30 BP 171 / 76; Pulse 66; Resp 18; Pulse Ox 99% on R/A; db 17:00 BP 168 / 71; Pulse 64; Resp 18; Pulse Ox 98% on R/A; db 18:30 BP 171 / 62; Pulse 74; Resp 18; Pulse Ox 98% on R/A; db 19:00 BP 181 / 72; Pulse 75; Resp 19 S; Pulse Ox 100% on R/A; jw7 13:55 Body Mass Index 29.26 (72.57 kg, 157.48 cm) nj1 13:55 Pain Scale: Adult nj1 Vitals: 14:45 Cardiac Rhythm Assessment Regular. db ED Course: 13:49 Patient arrived in ED. im 13:50 Meek Valdivia MD is Attending Physician. rn 13:57 Triage completed. nj1 13:58 Arm band placed on right wrist. nj1 14:07 EKG done, by ED staff, reviewed by Meek Valdivia MD. nj1 14:30 CT C Spine In Process Unspecified. EDMS 14:34 XRAY Chest (1 view) In Process Unspecified. EDMS 14:35 Inserted saline lock: 22 gauge in left antecubital area, using aseptic technique. Blood db collected. 14:39 Ita Cruz, RN is Primary Nurse. db 14:45 Patient has correct armband on for positive identification. Placed in gown. Bed in low db position. Call light in reach. Side rails up X 1. Provided Education on: LABS AND CT. Client placed on continuous cardiac and pulse oximetry monitoring. NIBP monitoring applied. monitor and storage bin tender on. Pulse ox on. NIBP on. Warm blanket given. 14:45 No provider procedures requiring assistance completed. O2 via NONE. db 15:52 Carotid Artery Bilateral US In Process Unspecified. EDMS 16:38 Haroldo Tierney MD is Hospitalizing Provider. rn 19:08 Report given to RAUL BOOTH. db 22:47 Jasmin Valdez RN is Primary Nurse. jw7 23:18 Patient admitted, IV remains in place. jw7 Administered Medications: No medications were administered Medication: 14:45 VIS not applicable for this client. db Outcome: 16:39 Decision to Hospitalize by Provider. rn 19:00 Condition: stable jw7 19:00 Admitted to ER Hold. Please see [facility] for further documentation. jw7 19:00 Instructed on the need for admit, Demonstrated understanding of instructions, 23:56 Patient left the ED. jw7 Signatures: Dispatcher [employer] EDMS Meek Valdivia MD MD rn Waits, Jodi, RN RN jw7 Ita Cruz RN RN db Jaymie Butler RN RN nj1 Jennifer Wells im
--- NOTE | 2024-01-05 16:40 | EDPHYS ---
Physician Documentation [facility] Name: Chanel Will Age: 78 yrs Sex: Female : 1945 Arrival Date: 01/05/2024 Time: 13:49 Bed 19 Private MD: ED Physician Meek Valdivia HPI: 01/04 14:14 This 78 yrs old Female presents to ER via Ambulatory with complaints of Chest rn Pain, Neck Pain, <24hrs Old, Arm Pain. 14:14 The patient or guardian reports chest pain that is located primarily in the anterior rn chest wall, left. Onset: 5 day(s) ago. The pain radiates to neck. Associated signs and symptoms: Pertinent negatives: abdominal pain, cough, diaphoresis, lower extremity swelling, lightheadedness, shortness of breath, syncope. The chest pain is described as aching. Duration: The patient or guardian reports multiple episodes, that are intermittent. Modifying factors: The symptoms are alleviated by nothing. the symptoms are aggravated by nothing. Severity of pain: At its worst the pain was mild in the emergency department the pain is unchanged. The patient has not experienced similar symptoms in the past. Patient reports intermittent chest pain and neck pain. States pain began in the neck and seems like it radiates to the chest and bilateral shoulders. No trauma or fall. No numbness or tingling. Seems to be worse with movement but will also happen at rest. No known heart problems or previous [place]. Tried Tylenol 3 days ago and did not help so has not taken anything since. Denies abdominal pain or vomiting. No fever. Does not feel ill. Also reports feels like is salivating more than normal. No difficulty swallowing/drinking/eating.. Historical: - Allergies: 13:57 Aleve; nj1 13:57 Codeine; nj1 13:58 tramadol; nj1 13:58 Naproxen; nj1 - PMHx: 13:57 Arthritis; carpal tunnel; Hernia; Hyperlipidemia; Hypertension; nj1 - Immunization history:: Client reports receiving the 2nd dose of the Covid vaccine. - Infectious Disease History:: Denies. - Social history:: Smoking status: Patient denies any tobacco usage or history of. - Family history:: not pertinent. - Hospitalizations: : No recent hospitalization is reported. ROS: 14:14 Constitutional: Negative for fever, chills, and weight loss, Neck: Positive for neck rn pain Cardiovascular: Positive for chest pain Respiratory: Negative for shortness of breath, cough, wheezing, and pleuritic chest pain, Abdomen/GI: Negative for abdominal pain, nausea, vomiting, diarrhea, and constipation, Back: Negative for injury and pain, MS/Extremity: Negative for injury and deformity, Skin: Negative for injury, rash, and discoloration, Neuro: Negative for headache, weakness, numbness, tingling, and seizure, Exam: 14:11 ECG was reviewed by the Attending Physician. rn 14:14 Constitutional: This is a well developed, well nourished patient who is awake, alert, rn and in no acute distress. Neck: Trachea midline, no masses. No pain with extension of neck. No lymphadenopathy. Reproducible pain with rotation of neck bilaterally. Cardiovascular: Regular rate and rhythm. No pulse deficits. Respiratory: No increased work of breathing, no retractions or nasal flaring. Abdomen/GI: Soft, non-tender Skin: Warm, dry MS/ Extremity: Pulses equal, no cyanosis. Neuro: Awake and alert, GCS 15, oriented to person, place, time, and situation. Cranial nerves II-XII grossly intact. Motor strength 5/5 in all extremities. Sensory grossly intact. Vital Signs: 13:55 BP 153 / 76; Pulse 76; Resp 16; Temp 98.4(O); Pulse Ox 98% ; Weight 72.57 kg; Height 5 nj1 ft. 2 in. ; Pain 8/10; 14:45 BP 152 / 61; Pulse 67; Resp 18; Pulse Ox 98% on R/A; db 15:30 BP 160 / 60; Pulse 66; Resp 16; Pulse Ox 97% on R/A; db 16:00 BP 161 / 60; Pulse 60; Resp 14; Pulse Ox 99% on R/A; db 16:30 BP 171 / 76; Pulse 66; Resp 18; Pulse Ox 99% on R/A; db 17:00 BP 168 / 71; Pulse 64; Resp 18; Pulse Ox 98% on R/A; db 18:30 BP 171 / 62; Pulse 74; Resp 18; Pulse Ox 98% on R/A; db 19:00 BP 181 / 72; Pulse 75; Resp 19 S; Pulse Ox 100% on R/A; jw7 13:55 Body Mass Index 29.26 (72.57 kg, 157.48 cm) nj1 13:55 Pain Scale: Adult nj1 MDM: 13:50 Patient medically screened. rn 16:36 Differential diagnosis: acute myocardial infarction, acute pericarditis, anxiety, rn coronary artery disease chest wall pain, costochondritis, pleurisy, pneumothorax, stable angina, unstable angina. HEART Score: History: Moderately Suspicious (1), ECG: Non specific repolarization disturbance / LBTB / PM (1), Age: > or = 65 years (2), Risk Factors: 1 or 2 risk factors (1), Troponin: < or = 1 x Normal Limit (0), Total Score = 5. Data reviewed: vital signs, nurses notes, lab test result(s), EKG, radiologic studies, CT scan, plain films, ultrasound, and as a result, I will admit patient. 16:37 Counseling: I had a detailed discussion with the patient and/or guardian regarding the rn historical points, exam findings, and any diagnostic results supporting the discharge/admit diagnosis, lab results, radiology results, the need for further work-up and treatment in the hospital. ED course: No acute findings and workup here. Troponin negative. CT neck does show foraminal stenosis but a little lower than expected for her symptoms. Patient and family report have been referred to cardiology for this but has not gotten in. No recent cardiac workup. Symptoms are worsening and heart score of 5, will admit to hospitalist for cardiology consultation and further care.. 01/04 14:13 Order name: Basic Metabolic Panel; Complete Time: 15:08 rn 01/04 14:13 Order name: CBC with Diff; Complete Time: 15:04 rn 01/04 14:13 Order name: LFT's; Complete Time: 15:08 rn 01/04 14:13 Order name: NT PRO-BNP; Complete Time: 15:08 rn 01/04 14:13 Order name: Troponin HS; Complete Time: 15:08 rn 01/04 15:23 Order name: Troponin High Sensitivity; Complete Time: 16:43 rn 01/04 20:30 Order name: Troponin High Sensitivity EDMS 01/04 14:13 Order name: XRAY Chest (1 view); Complete Time: 14:58 rn 01/04 14:13 Order name: CT C Spine; Complete Time: 14:58 rn 01/04 15:23 Order name: Carotid Artery Bilateral US; Complete Time: 16:28 rn 01/04 17:10 Order name: CONS Physician Consult EDMS 01/04 14:13 Order name: Cardiac monitoring; Complete Time: 14:55 rn 01/04 14:13 Order name: EKG - Nurse/Tech; Complete Time: 14:55 rn 01/04 14:13 Order name: IV Saline Lock; Complete Time: 14:55 rn 01/04 14:13 Order name: Labs collected and sent; Complete Time: 14:55 rn 01/04 14:13 Order name: O2 Per Protocol; Complete Time: 14:55 rn 01/04 14:13 Order name: O2 Sat Monitoring; Complete Time: 14:55 rn EC:11 Rate is 82 beats/min. Rhythm is regular. QRS [place] is Normal. [place] interval is normal. QRS rn interval is normal. QT interval is normal. No Q waves. T waves are Normal. No ST changes noted. Clinical impression: NSR w/ Non-specific ST/T Changes. Interpreted by me. Reviewed by me. Administered Medications: No medications were administered Disposition Summary: 01/05/24 16:39 Hospitalization Ordered Notes: Hospitalization Status: Observation rn Provider: Haroldo Tierney rn Condition: Stable rn Problem: an ongoing problem rn Symptoms: have improved rn Bed/Room Type: Standard rn Location: Telemetry/MedSurg (observation)(01/05/24 22:40) ty Room Assignment: [facility](01/05/24 22:40) ty Diagnosis - Chest pain, unspecified rn Forms: - Medication Reconciliation Form rn - SBAR form rn - Leadership Thank You Letter rn Signatures: Dispatcher [employer] EDMS Meek Valdivia MD MD rn Basinger, Emily, RN RN eb1 Jaymie Butler RN RN Rafael Montez ty Corrections: (The following items were deleted from the chart) 14:14 14:14 Chest Single View+RAD.RAD.BRZ ordered. EDID EDMS 14:14 14:14 C Spine Wo Con+CT.RAD.BRZ ordered. EDID EDMS 21:44 16:39 Telemetry/MedSurg (observation) rn eb1 21:44 16:39 rn eb1 22:40 21:44 [facility] ER HOLD eb1 ty 22:40 21:44 ERHOLD- eb1 ty
--- NOTE | 2024-01-05 17:07 | P.HP ---
Certification for Inpatient Patient admitted to: Observation Patient will require the following post-hospital care: None Practitioner: I am a practitioner with admitting privileges, knowledge of patient current condition, hospital course, and medical plan of care. Services: Services provided to patient in accordance with Admission requirements found in Title 42 Section 412.3 of the Code of Federal Regulations Patient History Date of Service: 01/05/24 Reason for admission: Chest pain, neuro History of Present Illness: 78 yrs old Female with a past medical history of arthritis, carpal tunnel, hernia, hypertension, hyperlipidemia, GERD presents to ER via Ambulatory with complaints of Chest Pain. She reports chest pain is 8 out of 10. Is intermittent in nature. She reports anterior chest pain started 5 days ago radiates to the neck,, radiates to bilateral shoulders. She denies shortness of breath, dizziness, edema, fever, cough, recent infection. She reports moderate intermittent episodes of chest pain that is not exacerbated by anything. She reports his peripheral neuropathy, taking gabapentin, she denies trauma, fall, recent injury, she reports taking Tylenol, but that was not effective. Plan to admit for chest pain rule out [place] vital signs, cardiology to consult, BP 153 / 76; Pulse 76; Resp 16; Temp 98.4(O); Pulse Ox 98% ; Weight 72.57 kg; Height 5 ft. 2 in. ; Pain 8/10; EKG Rate is 82 beats/min. Rhythm is regular. QRS [place] is Normal. PA interval is normal. QRS interval is normal. QT interval is normal. No Q waves. T waves are Normal. No ST changes noted. Clinical impression: NSR w/ Non-specific ST/T Changes., Laboratory evaluation CBC unremarkable mild hypokalemia 3.4 troponin normal 14.8, 18.8 Allergies codeine Allergy (Verified 10/07/18 08:12) Nausea/Vomiting naproxen [From Aleve] Allergy (Verified 10/07/18 08:12) sob,anxiety Home Medications: Amlodipine Besylate 5 mg PO DAILY 02/12/16 Fluticasone Propionate [Flonase Allergy Relief] 9.9 ml NS DAILY 02/12/16 Irbesartan/Hydrochlorothiazide [Avalide 300-12.5 mg Tablet] 1 each PO DAILY 02/12/16 Omeprazole [Prilosec] 40 mg PO DAILY 02/12/16 Rosuvastatin [Crestor] 5 mg PO BEDTIME 02/12/16 carvediloL [Coreg] 25 mg PO BID 02/12/16 - Past Medical/Surgical History -: Hypertension -: Hyperlipidemia -: Seasonal allergies -: GERD Review of Systems per HPI Physical Examination - Physical Exam General: Alert, In no apparent distress, Oriented x3 HEENT: Atraumatic, Normocephalic Neck: Supple, 2+ carotid pulse no bruit Respiratory: Clear to auscultation bilaterally Cardiovascular: Normal pulses, Regular rate/rhythm Capillary refill: <2 Seconds Gastrointestinal: Normal bowel sounds, Soft and benign Musculoskeletal: No clubbing, No swelling Integumentary: No breakdown, No significant lesion Neurological: Normal speech, Normal strength at 5/5 x4 extr - Studies Laboratory Data (last 24 hrs) 01/05/24 01/05/24 14:35 14:35 WBC 9.00 Hgb 12.6 Hct 37.2 Plt Count 235 Sodium 139 Potassium 3.4 L BUN 15 Creatinine 0.79 Glucose 105 Total Bilirubin 0.6 AST 13 L ALT 18 Alkaline Phosphatase 84 Assessment and Plan - Plan Assessment plan Chest pain rule out [place] Cardiology consult, telemetry, trend troponins Lipid panel in the a.m., Plan to admit for chest pain rule out [place] vital signs, cardiology to consult, BP 153 / 76; Pulse 76; Resp 16; Temp 98.4(O); Pulse Ox 98% ; Weight 72.57 kg; Height 5 ft. 2 in. ; Pain 8/10; EKG Rate is 82 beats/min. Rhythm is regular. QRS [place] is Normal. PA interval is normal. QRS interval is normal. QT interval is normal. No Q waves. T waves are Normal. No ST changes noted. Clinical impression: NSR w/ Non-specific ST/T Changes., Laboratory evaluation CBC unremarkable mild hypokalemia 3.4 troponin normal 14.8, 18.8 As needed nitro, as needed analgesics, O2 2 L keep sats greater than 92% She reports chest pain is 8 out of 10. Is intermittent in nature. She reports anterior chest pain started 5 days ago radiates to the neck,, radiates to bilateral shoulders. Peripheral neuropathy History of arthritis Neurology Dr. Sharpe consulted for neuropathy B12, TSH, phosphorus,, CRP ordered Resume gabapentin Essential hypertension Hyperlipidemia Seasonal allergies GERD Insomnia History carpal tunnel hernia Resume appropriate home meds Trazodone, PPI, antihistamine, as needed Full code Cardiac diet DVT Lovenox Disposition Home independent prior to admission Discharge Plan: Home - Advance Directives Does patient have a Living Will: No Does patient have a Durable POA for Healthcare: Yes - Code Status/Comfort Care Code Status: Full Code Critical Care: No Time Spent Managing Pts Care (In Minutes): 55
[2024-01-05] MEDS ORDERED: NITROGLYCERIN 0.4 MG/TAB SL PRN (17:12)
[2024-01-05] MEDS ORDERED: ONDANSETRON 4 MG/2 ML VIAL IV PRN (19:38)
[2024-01-05] MEDS ORDERED: ACETAMINOPHEN 500 MG TAB PO PRN (19:38)
[2024-01-05] MEDS ORDERED: carvediloL 6.25 MG TAB ONE (19:48)
[2024-01-05] MEDS ORDERED: MORPHINE 2 MG/ML SYR ONE (19:49)
[2024-01-05] MEDS: carvediloL 6.25 MG TAB PO SCH (20:03)
[2024-01-05] MEDS: MORPHINE 2 MG/ML SYR IV PRN (20:04)
[2024-01-05] MEDS ORDERED: dexAMETHasone 4 MG/ML VIAL ONE (20:47)
[2024-01-05] MEDS ORDERED: GABAPENTIN 300 MG CAP PO SCH (21:00)
[2024-01-05] MEDS: ROSUVASTATIN 5 MG TAB PO SCH (21:00)
[2024-01-05] MEDS: KETOROLAC 30 MG/ML INJ IV ONE ×2 (21:38)
[2024-01-05] MEDS: PANTOPRAZOLE 40MG TABLET PO SCH (21:39)
[2024-01-05] MEDS ORDERED: MAGNES/ALUMIN/SIMET 30ML UCUP ONE (21:51)
[2024-01-05] MEDS ORDERED: KETOROLAC 30 MG/ML INJ ONE (21:51)
[2024-01-05] MEDS ORDERED: PANTOPRAZOLE 40MG TABLET PO ONE (21:51)
[2024-01-05] MEDS: TRAZODONE 50 MG TABLET PO SCH (22:20)
[2024-01-05] MEDS: dexAMETHasone 4 MG/ML VIAL IV SCH (22:20)
[2024-01-05] MEDS: MAGNES/ALUMIN/SIMET 30ML UCUP PO PRN (22:30)
[2024-01-06 00:31] LABS: Specific Gravity 1.014 (1.005-1.030); Sqamous Epithelial <5 /HPF (None Seen); Urine Bacteria >50 /HPF (<20); Urine Bilirubin NEGATIVE (Negative); Urine Blood 1+ (Negative); Urine Clarity Extremely Turbid (Clear); Urine Color Yellow (Yellow); Urine Culture Reflex Order REFLEXED; Urine Glucose NEGATIVE (Negative); Urine Ketones TRACE (Negative); Urine Microscopic Reflex YN ORDER UMIC; Urine Mucus Slight /HPF (None Seen); Urine Nitrite 2+ (Negative); Urine Protein NEGATIVE (Negative); Urine Urobilinogen Normal (Normal); Urine WBC >50 /HPF (<5); Urine WBC Clump Few /HPF (None Seen)
[2024-01-06 04:20] LABS: Absolute Basophils 0.1 K/uL (0-0.5); Absolute Lymphocytes (CBC) 0.8 K/uL (0.7-4.9); Absolute Monocytes 0.4 K/uL (0.1-1.3); Absolute Neutrophil 9.4 K/uL (1.8-8.0); Basophils % 0.6 % (0-1.3); Eosinophils % 0.1 % (0-4.4); Lymphocytes % 7.3 % (15.3-44.8); MCH 30.4 pg (27.0-35.0); MCHC 33.2 g/dL (32.0-36.0); MCV 91.5 fL (80-100); MPV 10.6 fL (7.6-11.3); Monocytes % 3.6 % (3.3-12.3); Neutrophils % 88.4 % (41.7-73.7); Platelets 218 thou/uL (152-406); RBC Red Blood Cell Count 3.93 M/uL (3.86-4.86); Red Cell Distribution Width 13.5 % (12.1-15.2)
[2024-01-06 04:52] LABS: Band Neutrophils 15 % (0-1); Blood Morphology Comment NOT SEEN (NOT SEEN); Differential Total Cells Count 100; Lymphocytes 7 % (15-42); Monocytes 4 % (0-10); Platelet Estimate ADEQ; Segmented Neutrophils 74 % (40-80)
[2024-01-06 05:07] LABS: Albumin 3.1 g/dL (3.4-5.0); Albumin/Globulin Ratio 0.8 (1.1-1.8); Anion Gap 8.4 mEq/L (5.0-15.0); Bilirubin Total 0.8 mg/dL (0.2-1.0); C-Reactive Protein 39.8 mg/L (<3.00); Globulin 3.7 g/dL (2.3-3.5); Potassium 3.4 mEq/L (3.5-5.1); Protein, Total 6.8 g/dL (6.4-8.2); Thyroid Stimulating Hormone 0.758 uIU/mL (0.358-3.740); Troponin High Sensitivity 22.6 pg/mL (<58.9)
[2024-01-06] MEDS: ASPIRIN EC 81 MG TAB PO SCH (08:39)
[2024-01-06] MEDS: POTASSIUM CL SA 10 MEQ TAB PO ONE (08:39)
[2024-01-06] MEDS: LORazepam 2 MG/ML VIAL IV ONE (11:11)
--- NOTE | 2024-01-06 12:18 | RAD REPORT ---
EXAM DESCRIPTION: MRI - C Spine Wo Cont- 01/06/2024 11:45 am CLINICAL HISTORY: radiculopathy to upper extremity COMPARISON: No comparisons FINDINGS: Cervical vertebral bodies are normal in height and alignment. No suspicious marrow edema or marrow replacing process. No fracture or traumatic subluxation. The craniocervical junction is normal. C2-3 level: No significant findings. C3-4 level: Mild right-sided facet hypertrophy mildly narrows the right exit foramen. C4-5 level: 3 mm central disc herniation is present contacting the anterior cord and deforming the ce ntral cord mildly. This results in mild canal stenosis. Uncovertebral spurring is present on the left mildly narrowing the left exit foramen. C5-6 level: Small posterior osteophyte/ disc complex is present attenuating the anterior subarachnoid space. Right-sided uncovertebral spurring moderately narrows the right exit foramen. C6-7 level: Small to moderate posterior osteophyte/ disc complex is present attenuating the anterior subarachnoid space. Particularly prominent disc component is seen right paracentral location. Bilater al uncovertebral spurring, greater on the left narrows the left exit foramen moderately. C7-T1 level: 4 mm anterolisthesis is present with mild posterior disc/osteophyte complex present asym metric to the left foraminal location. Findings result in mild central canal narrowing bilateral exit foraminal narrowing. Cervical cord is normal in size and signal. IMPRESSION: Moderate mid and lower cervical degenerative spondylosis as detailed above.
[2024-01-06 17:36] VITALS: O2SAT 96; BMI 29.2
--- NOTE | 2024-01-06 17:46 | P.PN ---
Subjective Date of Service: 01/06/24 Chief Complaint: Chest pain, neuro Reports neck pain with range of motion. Decadron, as needed analgesics for Serial troponins negative, cardiology consult canceled - Physical Exam General: Alert, In no apparent distress, Oriented x3 HEENT: Atraumatic, Normocephalic Neck: Supple, 2+ carotid pulse no bruit Respiratory: Clear to auscultation bilaterally Cardiovascular: Normal pulses, Regular rate/rhythm Capillary refill: <2 Seconds Gastrointestinal: Normal bowel sounds, Soft and benign Musculoskeletal: No clubbing, No swelling Integumentary: No breakdown, No significant lesion Neurological: Normal speech, Normal strength at 5/5 x4 extr Review of Systems Per HPI Physical Examination - Vital Signs Temperature: 97 F Blood Pressure: 132/60 Pulse: 72 Respirations: 15 Pulse Ox (%): 96 Assessment And Plan - Plan Assessment plan Chest pain rule out [place] Cardiology consult, telemetry, trend troponins Lipid panel in the a.m., Plan to admit for chest pain rule out [place] vital signs, cardiology to consult, BP 153 / 76; Pulse 76; Resp 16; Temp 98.4(O); Pulse Ox 98% ; Weight 72.57 kg; Height 5 ft. 2 in. ; Pain 8/10; EKG Rate is 82 beats/min. Rhythm is regular. QRS [place] is Normal. [place] interval is normal. QRS interval is normal. QT interval is normal. No Q waves. T waves are Normal. No ST changes noted. Clinical impression: NSR w/ Non-specific ST/T Changes., Laboratory evaluation CBC unremarkable mild hypokalemia 3.4 troponin normal 14.8, 18.8 As needed nitro, as needed analgesics, O2 2 L keep sats greater than 92% She reports chest pain is 8 out of 10. Is intermittent in nature. She reports anterior chest pain started 5 days ago radiates to the neck,, radiates to bilateral shoulders. 01/04 Carotid artery MPRESSION: Mild atherosclerotic changes noted. Elevated distal right ICA peak systolic velocity amounting to 50-69% stenosis.Less than 50% stenosis along the left ICA. cervical degenerative spondylosis Cervical neck pain MRI of the C-spine IMPRESSION: Moderate mid and lower cervical degenerative spondylosis as detailed above. CT head IMPRESSION: No acute osseous abnormality of the cervical spine. Degenerative changes as above. Peripheral neuropathy History of arthritis Neurology Dr. Sharpe consulted for neuropathy B12, TSH, phosphorus,, CRP ordered Resume gabapentin as needed analgesia Elevated CRP 39.80 Essential hypertension Hyperlipidemia Seasonal allergies GERD Insomnia History carpal tunnel hernia Resume appropriate home meds Trazodone, PPI, antihistamine, as needed Full code Cardiac diet DVT Lovenox Disposition Home independent prior to admission Discharge Plan: Home - Code Status/Comfort Care Code Status: Full Code Critical Care: No Time Spent Managing PTS Care (In Minutes): 35
--- NOTE | 2024-01-06 17:49 | P.DS ---
Admission Date: 01/05/24 Discharge Date: 01/06/24 Disposition: ROUTINE DISCHARGE Discharge Condition: GOOD Reason for Admission: Chest pain, neuro Brief History of Present Illness: 78 yrs old Female with a past medical history of arthritis, carpal tunnel, hernia, hypertension, hyperlipidemia, GERD presents to ER via Ambulatory with complaints of Chest Pain. She reports chest pain is 8 out of 10. Is intermittent in nature. She reports anterior chest pain started 5 days ago radiates to the neck,, radiates to bilateral shoulders. She denies shortness of breath, dizziness, edema, fever, cough, recent infection. She reports moderate intermittent episodes of chest pain that is not exacerbated by anything. She reports his peripheral neuropathy, taking gabapentin, she denies trauma, fall, recent injury, she reports taking Tylenol, but that was not effective. Plan to admit for chest pain rule out [place] vital signs, cardiology to consult, BP 153 / 76; Pulse 76; Resp 16; Temp 98.4(O); Pulse Ox 98% ; Weight 72.57 kg; Height 5 ft. 2 in. ; Pain 8/10; EKG Rate is 82 beats/min. Rhythm is regular. QRS [place] is Normal. RI interval is normal. QRS interval is normal. QT interval is normal. No Q waves. T waves are Normal. No ST changes noted. Clinical impression: NSR w/ Non-specific ST/T Changes., Laboratory evaluation CBC unremarkable mild hypokalemia 3.4 troponin normal 14.8, 18.8 - Physical Exam General: Alert, In no apparent distress, Oriented x3 HEENT: Atraumatic, Normocephalic Neck: Supple, 2+ carotid pulse no bruit Respiratory: Clear to auscultation bilaterally Cardiovascular: Normal pulses, Regular rate/rhythm Capillary refill: <2 Seconds Gastrointestinal: Normal bowel sounds, Soft and benign Musculoskeletal: No clubbing, No swelling Integumentary: No breakdown, No significant lesion Neurological: Normal speech, Normal strength at 5/5 x4 extr Hospital Course: 78 year-old female patient presented with chest pain. Was noted to have cervical neck pain. Serial troponins were negative. Condition improved with as needed analgesics,'s steroids Patient tolerating diet, stable for discharge to home with follow-up appointment with primary care physician. Follow-up with orthopedic after discharge. PROBLEM: cervical degenerative spondylosis Cervical neck pain Arthritis Degenerative disc disease MRI of the C-spine IMPRESSION: Moderate mid and lower cervical degenerative spondylosis as detailed above. CT head IMPRESSION: No acute osseous abnormality of the cervical spine. Degenera tive changes as above. Chest pain serial troponins negative Carotid ultrasound 01/04 Carotid artery MPRESSION: Mild atherosclerotic changes noted. Elevated distal right ICA peak systolic velocity amounting to 50-69% stenosis.Less than 50% stenosis along the left ICA. Follow-up with cardiology Dr. JOHNSON after discharge Follow-up with orthopedic after discharge for cervical neck pain Outpatient physical therapy Continue home medicines as previously prescribed GOAL: Clear understanding of disease process INSTRUCTIONS: Physician Discharge Instructions: -Follow-up with PCP in 1 to 2 weeks -Please call Dr. Tierney at [phone] if any questions regarding hospital stay -Please call nursing station at [phone] if any nursing or medication questions -Return to the emergency room if symptoms worsen Diet: ADA, low sodium Activity: Fall precautions Vital Signs/Physical Exam: Temp Pulse Resp BP Pulse Ox 97 F 72 15 132/60 96 01/06/24 17:46 01/06/24 17:46 01/06/24 17:46 01/06/24 17:46 01/06/24 17:46 Laboratory Data at Discharge: WBC Cancelled 01/06/24 05:00 Hgb Cancelled 01/06/24 05:00 Hct Cancelled 01/06/24 05:00 Plt Count Cancelled 01/06/24 05:00 Sodium Cancelled 01/06/24 05:00 Potassium Cancelled 01/06/24 05:00 BUN Cancelled 01/06/24 05:00 Creatinine Cancelled 01/06/24 05:00 Glucose Cancelled 01/06/24 05:00 Phosphorus 3.0 mg/dL (2.5-4.9) 01/06/24 03:38 Magnesium Cancelled 01/06/24 05:00 Total Bilirubin 0.8 mg/dL (0.2-1.0) 01/06/24 03:38 AST 18 U/L (15-37) 01/06/24 03:38 ALT 19 U/L (13-56) 01/06/24 03:38 Alkaline Phosphatase 82 U/L (45-117) 01/06/24 03:38 Triglycerides Cancelled 01/06/24 05:00 Cholesterol Cancelled 01/06/24 05:00 HDL Cholesterol Cancelled 01/06/24 05:00 Cholesterol/HDL Ratio Cancelled 01/06/24 05:00 Home Medications: Fluticasone Propionate [Flonase Allergy Relief] 9.9 ml NS DAILY 02/12/16 Baclofen 5 mg PO DAILY 01/05/24 Candesartan/Hydrochlorothiazid [Candesartan-Hctz 32-12.5 mg Tb] 1 each PO DAILY 01/05/24 Loratadine [Claritin] 10 mg PO DAILY 01/05/24 Trazodone [Desyrel] 50 mg PO BEDTIME 01/05/24 carvediloL [Carvedilol] 6.25 mg PO BID 01/05/24 Diet: ADA Activity: Fall precautions Followup: Steve Melendez DO [Primary Care Provider] - Time spent managing pt's care (in minutes): 55
[2024-01-06 21:59] VITALS: BP 107/55; TEMP 96.9
== END 2024-01-06 20:23 | disposition home or self-care (01) ==
LOC: ER 13:49 → ERHOLD 17:07 → 4TH 23:17
PROVIDERS: ADMIT Hospitalist; ATTEND Hospitalist
DX: R07.9 Chest pain, unspecified (principal); M54.2 Cervicalgia; M47.892 Other spondylosis, cervical region; G56.00 Carpal tunnel syndrome, unspecified upper limb; M19.90 Unspecified osteoarthritis, unspecified site; I10 Essential (primary) hypertension; E78.5 Hyperlipidemia, unspecified; K21.9 Gastro-esophageal reflux disease without esophagitis; G47.00 Insomnia, unspecified; K46.9 Unspecified abdominal hernia without obstruction or gangrene; G62.9 Polyneuropathy, unspecified; Z88.5 Allergy status to narcotic agent; Z88.6 Allergy status to analgesic agent
CPT/HCPCS: 93005 ×2; 87088; 85025 ×2; 81001; 87086; 80048; 36415; 83735; 84100; 80061; 80076; 84443; 84484 ×6; 84439; 82607; 80053; 83880 ×2; 86140; 72125; 71045; 93880; 72141; 99285; J1100 ×3; J2270 ×2; G0378